=== PATIENT | male | born 1955 | race Caucasian/White ===

== ENCOUNTER → 2019-02-27 08:14 | Outpatient (BNVA) | payer MEDICARE, SELFPAY | PROVIDERS: Family Provider Nurse Practitioner Family; PCP Family Medicine; Visit Provider Specialist | DX: G43.711 Chronic migraine without aura, intractable, with status migrainosus (principal) | CPT/HCPCS: 64615; J0585 ==

== ENCOUNTER → 2019-06-05 07:59 | Outpatient (BNVA) | payer MEDICARE, SELFPAY | PROVIDERS: Family Provider Nurse Practitioner Family; PCP Family Medicine; Visit Provider Specialist | DX: G43.711 Chronic migraine without aura, intractable, with status migrainosus (principal) | CPT/HCPCS: 64615; J0585 ==

== ENCOUNTER → 2020-03-11 08:07 | Outpatient (BNVA) | payer MEDICARE, SELFPAY | PROVIDERS: Family Provider Nurse Practitioner Family; PCP Family Medicine; Visit Provider Specialist | DX: G43.709 Chronic migraine without aura, not intractable, without status migrainosus (principal); G47.00 Insomnia, unspecified | CPT/HCPCS: 99213; 99214 ==

== ENCOUNTER 2020-12-21 06:00 | Outpatient (RCR) | payer MEDICARE, SELFPAY | END 2021-01-11 23:59 | disposition home or self-care (01) | LOC: TPT 06:00 | PROVIDERS: PCP Family Medicine; Referring Provider Orthopaedic Surgery; Visit Provider Orthopaedic Surgery | DX: Z47.1 Aftercare following joint replacement surgery (principal); Z96.652 Presence of left artificial knee joint | CPT/HCPCS: 97110; 97161 ==

== ENCOUNTER 2021-01-12 06:00 | Outpatient (RCR) | payer MEDICARE, SELFPAY | END 2021-02-11 23:59 | disposition home or self-care (01) | LOC: TPT 06:00 | PROVIDERS: PCP Family Medicine; Referring Provider Orthopaedic Surgery; Visit Provider Orthopaedic Surgery | DX: Z47.1 Aftercare following joint replacement surgery (principal); Z96.652 Presence of left artificial knee joint | CPT/HCPCS: 97110 ==

== ENCOUNTER 2021-02-18 08:48 | Outpatient (CLI) | payer MEDICARE, SELFPAY ==
[2021-02-18 09:01] VITALS: BP 119/77; PULSE 95; RESP 18; TEMP 36.3; O2SAT 96
[2021-02-18 09:21] VITALS: BP 115/74; PULSE 89; RESP 18; TEMP 35.7; O2SAT 97
[2021-02-18 10:34] VITALS: BP 112/69; PULSE 71; RESP 16; TEMP 36.1; O2SAT 96
== END 2021-02-18 08:49 | disposition home or self-care (01) ==
PROVIDERS: PCP Family Medicine; Visit Provider Nurse Practitioner
DX: U07.1 COVID-19 (principal)
CPT/HCPCS: 96365

== ENCOUNTER 2021-02-22 09:42 | Emergency (ER) | payer MEDICARE, SELFPAY ==
[2021-02-22 09:50] VITALS: BP 132/82; PULSE 88; RESP 28; O2SAT 97; BMI 32.1
--- NOTE | 2021-02-22 09:59 | W.ED.SOB ---
HPI - SOB/Dyspnea General: Chief Complaint: Shortness of Breath/Dyspnea Stated Complaint: difficulty breathing Time Seen by Provider: 02/22/21 09:46 History of Present Illness: HPI Narrative: 65-year-old male presents to the emergency room with shortness of breath and cough. Patient tested positive for COVID 6 days ago. He had little to no symptoms he only tested because his tested positive. He has previously been vaccinated. He is not having any chest pain he states he just feels short of breath and feels like he cannot catch his breath this morning. He denies any abdominal pain not really had any fever has not had a productive cough. He has had pneumonia in the past he is concerned he may have a pneumonia. MD elicited complaint: shortness of breath and cough Associated symptoms: Deny abdominal pain, chest pain, fever(s), nausea, orthopnea or vomiting Review of Systems Const: Denies: fever(s), chills, body aches, change in appetite, fatigue or malaise ENMT: Denies: throat pain, ear or mastoid pain, nasal discharge or nasal congestion Card: Denies: chest pain, edema, dyspnea on exertion or orthopnea Resp: Denies: dyspnea, productive cough or non-productive cough GI: Denies: abdominal pain, nausea, vomiting, hematemesis, coffee ground emesis, diarrhea, constipation, bloating, hematochezia or melena : Denies: flank pain, dysuria, urinary frequency or urinary urgency Skin/Breast: Denies: rash or pruritus PFSH ED PFSH: Medical History (Updated 02/22/21 @ 11:00 by Jason Ernandez DO) Rodriguez esophagus Ch mgr wo dorothy w ntr w st Chronic depression Fibromyalgia Spasmodic torticollis Surgical History (Updated 02/22/21 @ 10:03 by Jason Ernandez DO) History of cholecystectomy History of eye surgery Family History Father Hypertension Crohn's disease Mother Cancer Social History Smoking and tobacco status: never smoked Physical Exam Const: GENERAL APPEARANCE: cooperative and comfortable ORIENTATION/CONSCIOUSNESS: Yes awake, Yes oriented to person, Yes oriented to place and Yes oriented to time HENMT: COMMON NORMALS: normocephalic, atraumatic and hearing grossly normal bilaterally HEAD & SCALP: normocephalic and atraumatic Neck/C-Spine: COMMON NORMALS: no JVD Resp: COMMON NORMALS: normal respiratory effort, No retractions, No use of accessory muscles and clear to auscultation bilaterally AUSCULTATION: clear to auscultation bilaterally Cardio: COMMON NORMALS: no JVD, regular rate, regular rhythm and No murmurs present (Cardio) RATE: regular rate RHYTHM: regular rhythm GI: COMMON NORMALS: Soft to palpation and No hepatosplenomegaly present AUSCULTATION: Yes normoactive bowel sounds PALPATION: Yes Soft to palpation, No Tenderness to palpation present (GI), No Guarding due to palpation present (GI) and Yes No hepatosplenomegaly present Extremity: COMMON NORMALS: normal to inspection, capillary refill normal, no clubbing, cyanosis or edema, no calf tenderness and no pedal edema Neuro: SENSORIUM/ORIENTATION: Yes oriented to person, Yes oriented to place and Yes oriented to time Skin: COMMON NORMALS: no rashes or lesions noted GENERAL SKIN EXAM: no rashes or lesions noted Course Vital Signs: Vital signs: Vital Signs Pulse Rate 84 02/22/21 11:10 Respiratory Rate 20 H 02/22/21 11:10 Blood Pressure 135/90 02/22/21 11:10 Pulse Oximetry 99 02/22/21 11:10 MDM - SOB/Dyspnea MDM Narrative: Medical decision making narrative: Patient stable lung sounds good vitals good discharge home we will set up for outpatient monoclonal antibody. Discharge Plan Discharge Patient Disposition: Home Clinical Impression: COVID-19 Condition: Stable Prescriptions: No Action trazodone 100 mg tablet 100 mg PO DAILY Qty: 20 RF: 6 Botox 100 unit recon soln 155 unit IM .EVERY 12 WEEKS RF: 0 Hold Instructions: Order Change oxycodone 30 mg tablet 30 mg PO .FIVE TIMES DAILY RF: 0 Ed A-Hist 4-10 mg tablet 1 tab PO .Q6 PRNRF: 0 methylprednisolone [Medrol (Shukri)] 4 mg tablets,dose pack See Rx Instructions PO PER PKG DIR RF: 0 Aimovig Autoinjector 140 mg/mL auto-injector 140 mg SUBCUT .[id number] Qty: 1 RF: 5 Discharge Orders: Discharge ED (Routine); Ordered 02/22/21 Ordered By: Jason Ernandez Other Ambulatory Orders: Request for MCA (Routine) Timeframe: 1 Day Facility: [facility] - Location: Outpatient Surgical Services Ordered By: Jason Ernandez Referrals: Elizabeth Gamez MD [Primary Care Provider] - Discharge Diet: Usual diet Discharge Activity: Limit activity as instructed Patient Instructions: Opioid Safety Coding Level of Care Code ED Solar Project Coordination Specialist for Chg Fwd Exam Comprehensive
--- NOTE | 2021-02-22 10:00 | XR_ITS ---
WS: [id number] XR chest 1V portable [id number] REASON FOR EXAM: dyspnea/cough FINDINGS: Moderate tortuosity and ectasia of the thoracic aorta without aneurysmal dilatation. Heart at the upper limits of normal in size. Patchy and linear lung opacities in the left lower and right lower lungs. Unknown chronicity. Bony thorax intact. XR/XR chest 1V portable [id number] IMPRESSION: Opacities in the lung bases of unknown chronicity. Compatible with subacute pne umonitis.
[2021-02-22 10:38] VITALS: O2SAT 94; O2SAT 97
[2021-02-22 11:10] VITALS: BP 135/90; PULSE 84; RESP 20; O2SAT 99
== END 2021-02-22 11:31 | disposition home or self-care (01) ==
PROVIDERS: Emergency Provider Family Medicine; PCP Family Medicine
DX: U07.1 COVID-19 (principal)
CPT/HCPCS: 71045; 99283

== ENCOUNTER → 2021-07-12 17:19 | Outpatient (BNVA) | payer MEDICARE, MEDICAID, SELFPAY | PROVIDERS: PCP Family Medicine; Visit Provider Nurse Practitioner Family | DX: N39.0 Urinary tract infection, site not specified (principal); R10.9 Unspecified abdominal pain; Z12.5 Encounter for screening for malignant neoplasm of prostate; N40.0 Benign prostatic hyperplasia without lower urinary tract symptoms | CPT/HCPCS: 80053; G0103 ==

== ENCOUNTER 2021-11-26 09:40 | Emergency (ER) | payer MEDICARE, MEDICAID, SELFPAY ==
--- NOTE | 2021-11-26 09:44 | ED_ITS ---
HPI - Neck Pain/Injury General: Chief Complaint: Back Pain/Injury Stated Complaint: Can't turn neck, pain on both sides Time Seen by Provider: 11/26/21 09:44 History of Present Illness: severe neck pain Onset (ago): day(s) (4) Severity scale (1-10): 10 Review of Systems General: Reports: 10 or more systems reviewed and unremarkable except in HPI and below Musc: Reports: neck pain (severe; positive for nuchal rigidity ) and joint swelling (right clavicle and posterior neck ) PFSH ED PFSH: Medical History Rodriguez esophagus Ch mgr wo dorothy w ntr w st Chronic depression Fibromyalgia Spasmodic torticollis Surgical History History of cholecystectomy History of eye surgery Family History Father Hypertension Crohn's disease Mother Cancer Social History Smoking and tobacco status: never smoked Physical Exam Const: COMMON NORMALS: no acute distress, patient oriented x3, no limitations and alert GENERAL APPEARANCE: cooperative and comfortable ORIENTATION/CONSCIOUSNESS: Yes awake, Yes oriented to person, Yes oriented to place and Yes oriented to time HENMT: COMMON NORMALS: normocephalic, atraumatic, external ears normal, EAC's normal, TM's normal bilaterally and Normal external nose present HEAD & SCALP: normal to inspection, normocephalic and atraumatic FACE & SINUS: normal facial exam, sinuses nontender and face symmetric NOSE: Normal external nose present, Normal nares present and No nasal discharge present EXTERNAL EAR: Yes external ears normal EXTERNAL AUDITORY CANAL: EAC's normal TYMPANIC MEMBRANE: TM's normal bilaterally MOUTH: Normal oral and palatal mucosa present, lip normal and tongue normal THROAT: posterior oropharynx normal, tonsils normal and uvula midline Eye: COMMON NORMALS: Equal, round and reactive pupils present, EOMs intact bilaterally and conjunctivae normal GENERAL EYE: appearance normal, both eyes and all related structures and normal light reflex EYELID: eyelids normal CONJUNCTIVA: Yes conjunctivae normal PUPIL: Yes Equal, round and reactive pupils present EOM: Yes EOM abnormal DIRECT OPHTHALMOSCOPY: Yes normal light reflex Neck/C-Spine: COMMON NORMALS: negative for full ROM (only able to nod head slightly from side to side; cannot touch chin to ches) GENERAL: Yes normal visual inspection CERVICAL SPINE: Yes cervical ROM normal and Yes normal cervical lordosis Lymph: LYMPHATIC: no lymphadenopathy noted Chest: COMMONS NORMALS: normal inspection of the chest and normal palpation of entire chest wall Resp: COMMON NORMALS: normal respiratory effort, No retractions and clear to auscultation bilaterally AUSCULTATION: clear to auscultation bilaterally Cardio: COMMON NORMALS: regular rate, regular rhythm, S1 normal heart sound present, S2 normal heart sound present, No gallops present (Cardio), No clicks present (Cardio), No murmurs present (Cardio), No rub (Cardio) and Peripheral pulses 2+ throughout RATE: regular rate RHYTHM: regular rhythm HEART SOUNDS: S1 normal heart sound present and S2 normal heart sound present PERIPHERAL PULSES: Peripheral pulses 2+ throughout GI: COMMON NORMALS: Normal to inspection, nondistended, normoactive bowel sounds present, Soft to palpation, non-tender and no masses PALPATION: Yes Soft to palpation : COMMON NORMALS: Yes no CVA tenderness BLADDER/KIDNEY EXAM: Yes no CVA tenderness Back/Pelvis: COMMON NORMALS: no CVA tenderness, thoracic and lumbar spine normal to inspection, no thoracic nor lumbar tenderness and thoraco-lumbar ROM normal Extremity: COMMON NORMALS: normal to inspection, full ROM, capillary refill normal, no joint enlargement, no clubbing, cyanosis or edema, no calf tenderness and no pedal edema GENERAL: Yes normal exam except as noted Neuro: COMMON NORMALS: patient oriented x3, moves all extremities, no focal motor deficits, no sensory deficits noted and gait normal SENSORIUM/ORIENTATION: Yes alert, Yes oriented to person, Yes oriented to place and Yes oriented to time Psych: COMMON NORMALS: mental status grossly normal, Normal thought process present, cooperative, normal affect, speech normal and activity/motor behavior normal SPEECH: Yes normal speech THOUGHT PROCESS: Normal thought process present Skin: COMMON NORMALS: no rashes or lesions noted, no wounds and turgor normal GENERAL SKIN EXAM: no rashes or lesions noted and turgor normal Course ED course: Slight improvement after pain meds. Pt in CT at this time. Vital Signs: Vital signs: Vital Signs Temperature 97.8 F 11/26/21 09:46 Pulse Rate 120 H 11/26/21 09:46 Respiratory Rate 16 11/26/21 10:27 Blood Pressure 125/81 11/26/21 09:46 Pulse Oximetry 90 11/26/21 10:27 Oxygen Delivery Me thod 11/26/21 09:46 MDM - Neck Pain/Injury Medical Decision Making Pt has increasingly severe neck pain. He did fall 3 weeks ago but did not experience any neck pain at that time. No neuro deficits noted. CT neck ordered and pain meds. IV established. Discharge Plan Discharge Condition: Stable Prescriptions: No Action oxycodone 30 mg tablet 30 mg PO .FIVE TIMES DAILY tamsulosin [Flomax] 0.4 mg capsule 0.4 mg PO DAILY 30 Days Qty: 30 0RF cephalexin 500 mg capsule 500 mg PO TID 10 Days Qty: 30 0RF Referrals: Elizabeth Gamez MD [Primary Care Provider] - Coding Level of Care Code ED Drafter (Cad) Electronic for Chg Fwd Exam Comprehensive
[2021-11-26 09:46] VITALS: BP 125/81; PULSE 120; RESP 18; TEMP 36.6; O2SAT 99; BMI 32.1
[2021-11-26 10:27] VITALS: RESP 16; O2SAT 90
[2021-11-26] MEDS: orphenadrine 30 mg/mL Inj 2 mL 60 MG IVP (10:27)
[2021-11-26] MEDS: HYDROmorphone 1 mg/mL INJ 1 mL IVP ×2 (10:27→12:49)
[2021-11-26] MEDS: ketorolac 30 mg/mL INJ IVP (10:28)
--- NOTE | 2021-11-26 11:16 | CTR_ITS ---
PROCEDURE INFORMATION: Exam: CT Cervical Spine Without Contrast Exam date and time: 11/26/2021 11:50 AM Age: 66 years old Clinical indication: Neck pain TECHNIQUE: Imaging protocol: Computed tomography of the cervical spine without contrast. Axial, coronal and sagittal reformatted images were created and reviewed. Radiation optimization: All CT scans at this facility use at least one of these dose optimization techniques: automated exposure control; mA and/or kV adjustment per patient size (includes targeted exams where dose is matched to clinical indication); or iterative reconstruction. COMPARISON: MR head wo/w con [id number] 09/24/2018 10:50 AM RADIATION DOSE METRICS: Total DLP (mGy-cm): 188.37 FINDINGS: Bones/joints: Normal cervical lordosis. No CT evidence of acute fracture, dislocation or subluxation. Minimal retrolisthesis of C3 on C4 and C4 on C5. Alignment otherwise anatomic. Vertebral body heights maintained. Mild multilevel degenerative changes, characterized by disc space narrowing, osteophytosis and uncovertebral and facet joint hypertrophy. Mild multilevel spinal canal and neural foraminal narrowing, most pronounced at C6-C7. Lungs: Biapical pleural thickening. Soft tissues: Grossly unremarkable. CT/CT cervical spin wo con* [id number] IMPRESSION: 1. No CT evidence of acute cervical spine traumatic injury. 2. Additional findings, as above.
[2021-11-26 12:42] VITALS: BP 123/96; PULSE 113; O2SAT 94
[2021-11-26 12:49] VITALS: RESP 16; O2SAT 97
[2021-11-26 13:02] VITALS: BP 131/91; PULSE 105; RESP 16; O2SAT 97
== END 2021-11-26 13:05 | disposition home or self-care (01) ==
PROVIDERS: Emergency Provider Nurse Practitioner Family; PCP Family Medicine
DX: M54.2 Cervicalgia (principal)
CPT/HCPCS: 72125; 96374; 96375; 96376; 99285; J1170; J1885; J2360

== ENCOUNTER 2021-11-27 11:42 | Emergency (ER) | payer MEDICARE, SELFPAY ==
[2021-11-27 11:45] VITALS: BP 122/82; PULSE 119; RESP 18; TEMP 36.7; O2SAT 98; BMI 32.1
[2021-11-27] MEDS: methocarbamol 750 mg Tablet 1500 MG PO (12:54)
[2021-11-27] MEDS: ketorolac 30 mg/mL INJ 15 MG IM (12:54)
[2021-11-27] MEDS: haloperidol inj 5 mg/mL INJ 1 mL 2 MG IM (12:54)
--- NOTE | 2021-11-27 13:26 | W.ED.NECK ---
HPI - Neck Pain/Injury General: Chief Complaint: Neck Pain/Injury Stated Complaint: Not better, was here yesterday Time Seen by Provider: 11/27/21 12:28 History of Present Illness: 66-year-old male noting right-sided neck pain. Onset yesterday. Notes he has significant pain when he turns his head either left or to the right. Pain is so severe that he has difficulty turning his neck. Has tried his at home oxycodone with minimal relief. Was seen in the ED yesterday. 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 He notes that the pain is severe. He denies numbness tingling or weakness. No prior history of stroke. No chest pain or shortness of breath. Review of Systems General: Reports: 10 or more systems reviewed and unremarkable except in HPI and below PFSH ED PFSH: Medical History Rodriguez esophagus Ch mgr wo dorothy w ntr w st Chronic depression Fibromyalgia Spasmodic torticollis Surgical History History of cholecystectomy History of eye surgery Family History Father Hypertension Crohn's disease Mother Cancer Social History Smoking and tobacco status: never smoked Physical Exam Const: COMMON NORMALS: no acute distress, patient oriented x3 and alert GENERAL APPEARANCE: cooperative ORIENTATION/CONSCIOUSNESS: Yes awake, Yes oriented to person, Yes oriented to place and Yes oriented to time HENMT: COMMON NORMALS: normocephalic, atraumatic, external ears normal, Normal external nose present and moist oral mucous membranes HEAD & SCALP: normal to inspection, normocephalic and atraumatic NOSE: Normal external nose present GENERAL EAR: hearing grossly impaired EXTERNAL EAR: Yes external ears normal Eye: COMMON NORMALS: Equal, round and reactive pupils present, EOMs intact bilaterally, conjunctivae normal and no scleral icterus GENERAL EYE: appearance normal, both eyes and all related structures EYELID: eyelids normal CONJUNCTIVA: Yes conjunctivae normal SCLERA: sclerae normal PUPIL: Yes Equal, round and reactive pupils present Neck/C-Spine: COMMON NORMALS: full ROM, supple and no JVD GENERAL: Yes normal visual inspection Lymph: LYMPHATIC: no lymphadenopathy noted and no lymphedema noted Chest: COMMONS NORMALS: normal inspection of the chest Resp: COMMON NORMALS: normal respiratory effort, No retractions and No use of accessory muscles Cardio: COMMON NORMALS: no JVD, regular rate and regular rhythm RATE: regular rate RHYTHM: regular rhythm GI: COMMON NORMALS: Normal to inspection, nondistended, normoactive bowel sounds present : COMMON NORMALS: Yes no CVA tenderness BLADDER/KIDNEY EXAM: Yes no CVA tenderness Back/Pelvis: COMMON NORMALS: no CVA tenderness and thoracic and lumbar spine normal to inspection Extremity: COMMON NORMALS: normal to inspection, full ROM and capillary refill normal GENERAL: Yes normal exam except as noted Neuro: COMMON NORMALS: patient oriented x3, CN's II-XII intact bilaterally, moves all extremities, no focal motor deficits, no sensory deficits noted and gait normal SENSORIUM/ORIENTATION: Yes alert, Yes oriented to person, Yes oriented to place and Yes oriented to time Psych: COMMON NORMALS: mental status grossly normal, Normal thought process present, cooperative and normal affect THOUGHT PROCESS: Normal thought process present Skin: COMMON NORMALS: no rashes or lesions noted and no wounds GENERAL SKIN EXAM: no rashes or lesions noted Course Vital Signs: Vital signs: Vital Signs Temperature 98.1 F 11/27/21 11:45 Pulse Rate 119 H 11/27/21 11:45 Respiratory Rate 18 11/27/21 11:45 Blood Pressure 122/82 11/27/21 11:45 Pulse Oximetry 98 11/27/21 11:45 Oxygen Delivery Me thod 11/27/21 11:45 MDM - Neck Pain/Injury Medical Decision Making 66-year-old male presenting today with right-sided neck pain. Tenderness along the sternocleidomastoid muscle. Appears to be an acute spasm. This suggestive of torticollis. Patient was given Haldol Paradelo, Toradol, methocarbamol. With resolution. Patient able to range neck. CT reviewed from yesterday without acute abnormality. Low suspicion for carotid or vertebral artery injury. Patient was given strict return precautions and recommended routine outpatient follow-up. Discharge Plan Discharge Patient Disposition: Home Clinical Impression: Acquired torticollis Condition: Stable Prescriptions: New methocarbamol 750 mg tablet 750 mg PO Q8H Qty: 30 0RF diclofenac sodium 75 mg tablet,delayed release (DR/EC) 75 mg PO BID Qty: 30 0RF No Action oxycodone 30 mg tablet 30 mg PO .FIVE TIMES DAILY tamsulosin [Flomax] 0.4 mg capsule 0.4 mg PO DAILY 30 Days Qty: 30 0RF cephalexin 500 mg capsule 500 mg PO TID 10 Days Qty: 30 0RF cyclobenzaprine 10 mg tablet 10 mg PO Q12H Qty: 14 0RF Voltaren Arthritis Pain 1 % gel 2 g topical QID Qty: 100 0RF Rx Instructions: apply to single elbow, wrist or hand; for hand includes palm/fingers/back of hand Discharge Orders: Discharge ED (Routine); Ordered 11/27/21 Ordered By: Hi Walters Referrals: Teri Mensah APN [Primary Care Provider] - Patient Instructions: Opioid Safety, Pain Management, Spasmodic Torticollis (ED) Coding Level of Care Code ED Supervisor Assembly Room for Venkatesh Plascencia
== END 2021-11-27 13:37 | disposition home or self-care (01) ==
PROVIDERS: Emergency Provider Emergency Medicine; PCP Nurse Practitioner Family
DX: M43.6 Torticollis (principal)
CPT/HCPCS: 96372; 99284; J1630; J1885

== ENCOUNTER → 2023-06-22 09:11 | Outpatient (BNVA) | payer MEDICARE, SELFPAY | PROVIDERS: PCP Nurse Practitioner Family; Visit Provider Nurse Practitioner Family | DX: M70.10 Bursitis, unspecified hand (principal) | CPT/HCPCS: 73110 ==

== ENCOUNTER 2023-12-12 11:01 | Emergency (ER) | payer MEDICARE, SELFPAY ==
[2023-12-12 11:25] VITALS: BP 96/66; PULSE 131; RESP 16; TEMP 36.4; O2SAT 95; BMI 261.3
[2023-12-12] MEDS: ketorolac 60 mg/2 mL INJ IM (13:16)
[2023-12-12] MEDS: orphenadrine 30 mg/mL Inj 2 mL 60 MG IM (13:18)
[2023-12-12 13:21] VITALS: BP 98/77; PULSE 109; O2SAT 99
[2023-12-12 13:30] VITALS: BP 99/81; PULSE 85; O2SAT 98
--- NOTE | 2023-12-12 13:30 | W.ED.NECK ---
HPI - Neck Pain/Injury General: Chief Complaint: Neck Pain/Injury Stated Complaint: neck pain/stiffness Time Seen by Provider: 12/12/23 12:50 History of Present Illness: Patient presents to the ER with complaints of neck stiffness and ajay Started approximately 2 days ago. Patient's left neck muscles tight. Patient turned his head quickly to the left and it worsened and has been getting worse ever since then. Patient denies any fever or chills or meningeal type symptoms. He is only tender on the left side and a strap muscle fashion. Related Data Home Medications Medication Instructions Recorded Confirmed bisoprolol fumarate 5 mg tablet 5 mg PO DAILY 12/12/23 12/12/23 lisinopril 2.5 mg tablet 25 mg PO DAILY 12/12/23 12/12/23 oxycodone 30 mg tablet See Rx Instructions .Route .COMPLEX 12/12/23 12/12/23 pantoprazole 40 mg tablet,delayed 40 mg PO BID 12/12/23 12/12/23 release Previous Rx's Medication Instructions Recorded cyclobenzaprine 5 mg tablet 5 mg PO TID PRN muscle spasm #14 12/12/23 tabs meloxicam 7.5 mg tablet 7.5 mg PO .Twice daily #14 tabs 12/12/23 Allergies Allergy/AdvReac Type Severity Reaction Status Date / Time No Known Allergies Allergy Verified 06/22/23 09:02 Review of Systems General: Reports: 10 or more systems reviewed and unremarkable except in HPI and below PFSH ED PFSH: Medical History Fibromyalgia Rodriguez esophagus Ch mgr wo dorothy w ntr w st Spasmodic torticollis Chronic depression Surgical History History of cholecystectomy History of eye surgery Family History Father Hypertension Crohn's disease Mother Cancer Social History Smoking and tobacco/nicotine status: never used tobacco/nicotine Physical Exam Const: COMMON NORMALS: no acute distress, average body habitus, patient oriented x3, no limitations, healthy appearing, alert and well nourished HENMT: COMMON NORMALS: normocephalic, atraumatic, hearing grossly normal bilaterally, external ears normal, Normal external nose present and moist oral mucous membranes HEAD & SCALP: normocephalic and atraumatic NOSE: Normal external nose present EXTERNAL EAR: Yes external ears normal Neck/C-Spine: COMMON NORMALS: no lymphadenopathy, supple, no meningeal signs, no JVD and Thyroid normal THYROID: Thyroid normal OTHER: Tender to palpate left sternocleidomastoid muscle Chest: COMMONS NORMALS: normal inspection of the chest and normal palpation of entire chest wall Resp: COMMON NORMALS: normal respiratory effort, No retractions, No use of accessory muscles and clear to auscultation bilaterally AUSCULTATION: clear to auscultation bilaterally Cardio: COMMON NORMALS: no JVD, regular rate, regular rhythm, S1 normal heart sound present, S2 normal heart sound present, No gallops present (Cardio), No clicks present (Cardio), No murmurs present (Cardio) and No rub (Cardio) RATE: regular rate RHYTHM: regular rhythm HEART SOUNDS: S1 normal heart sound present and S2 normal heart sound present GI: COMMON NORMALS: Normal to inspection, nondistended, normoactive bowel sounds present, Soft to palpation, non-tender, No hepatosplenomegaly present and no masses PALPATION: Yes Soft to palpation and Yes No hepatosplenomegaly present Neuro: COMMON NORMALS: patient oriented x3 SENSORIUM/ORIENTATION: Yes alert MENINGEAL SIGNS: Yes no meningeal signs Course Vital Signs: Vital signs: Vital Signs Temperature 97.5 F L 12/12/23 11:25 Pulse Rate 109 H 12/12/23 13:21 Respiratory Rate 16 12/12/23 11:25 Blood Pressure 98/77 12/12/23 13:21 Pulse Oximetry 99 12/12/23 13:21 Oxygen Delivery Me thod Room Air 12/12/23 13:21 MDM - Neck Pain/Injury Medical Decision Making Patient presents with left-sided musculoskeletal neck pain. Patient was given Toradol and Norflex and upon reexamination was resting soundly. Patient will be discharged on meloxicam and cyclobenzaprine. Medical Records I reviewed the patient's medical records. Lab Data I reviewed the patient's lab results. No radiology studies performed this visit Discharge Plan Discharge Patient Disposition: Home Clinical Impression: Strain of neck muscle Qualifiers: Encounter type: initial encounter Qualified Code(s): S16.1XXA - Strain of muscle, fascia and tendon at neck level, initial encounter Condition: Stable Prescriptions: New meloxicam 7.5 mg tablet 7.5 mg PO .Twice daily Qty: 14 0RF cyclobenzaprine 5 mg tablet 5 mg PO TID PRN (Reason: muscle spasm) Qty: 14 0RF No Action bisoprolol fumarate 5 mg tablet 5 mg PO DAILY pantoprazole 40 mg tablet,delayed release (DR/EC) 40 mg PO BID oxycodone 30 mg tablet See Rx Instructions .ROUTE .COMPLEX Rx Instructions: TAKE ONE TABLET BY MOUTH EVERY 4 TO 6 HOURS NEEDED FOR pain. do not exceed 3 TABLETS in 24 hours. HOLD WITHIN 4 hours of planned SLEEP. 11/23/23 lisinopril 2.5 mg tablet 25 mg PO DAILY Discharge Orders: Discharge ED (Routine); Ordered 12/12/23 Ordered By: Sami Pierre Referrals: Teri Mensah APN [Primary Care Provider] - 1 week Patient Instructions: Neck Pain (ED), Cervical Strain (ED) Activity Restrictions/Additional Instructions: 2 medicines have been called into your pharmacy. Please pick these medicines up and take these as directed. Please follow-up with your family practitioner in the next 7 days for further evaluation and treatment. Coding Level of Care Code ED Parts Sales Advisor for Venkatesh Plascencia
--- NOTE | 2023-12-12 13:31 | PC.PHAR ---
Patient states he had an lisinipril 2.5 mg prescription the doctor told him to stop. He also stated that doctor told him to stop the Bisoprolol fumarate 5 mg . He has has chemo treatments . Sonal's neighbor stated patient has stage 4 stomach cancer and has had chemo treatments .
[2023-12-12 14:00] VITALS: BP 93/73; PULSE 98; O2SAT 98
[2023-12-12 14:59] VITALS: BP 109/75; PULSE 99; O2SAT 96
== END 2023-12-12 14:55 | disposition home or self-care (01) ==
PROVIDERS: Emergency Provider Emergency Medicine; PCP Nurse Practitioner Family
DX: S16.1XXA Strain of muscle, fascia and tendon at neck level, initial encounter (principal); X58.XXXA Exposure to other specified factors, initial encounter
CPT/HCPCS: 96372; 99284; J1885; J2360

== ENCOUNTER 2024-07-18 09:51 | Oncology outpatient (recurring) (ONCR) | payer MEDICARE, SELFPAY ==
--- NOTE | 2024-07-18 09:15 | USCV_ITS ---
Hi Gil Age: 69 Gender: M : 1955 Exam Date: 07/18/2024 09:29 Ordering Phys: Cele Jimenez MD Technologist: JOSE Exam Location: [facility] Indication: Stage 4 Esophogeal Cancer BP: 110 / 71 HR: 74 Rhythm: Sinus Technical Quality: Adequate MEASUREMENTS (Male / Female) Normal Values 2D ECHO LV Diastolic Diameter PLAX 5.3 cm 4.2 - 5.9 / 3.9 - 5.3 cm IVS Diastolic Thickness 0.7 cm 0.6 - 1.0 / 0.6 - 0.9 cm IVS Systolic Thickness 1.1 cm LVPW Diastolic Thickness 1.0 cm 0.6 - 1.0 / 0.6 - 0.9 cm LVPW Systolic Thickness 1.1 cm LV Ejection Fraction 2D Teich 62.4 % LV Ejection Fraction MOD 4C 63.1 % LV Ejection Fraction MOD 2C 57.5 % LV Ejection Fraction 2C AL 58.4 % RA Systolic Volume 4C AL 28.9 ml RA Systolic Volume 4C MOD 28.2 ml LA Sys Volume AL 51.1 cm cubed LA Sys Volume Index AL 24.5 cm cubed/m squared M-MODE LA Ao Ratio MM 1.2 AV Cusp Separation MM 1.9 cm DOPPLER AV Peak Velocity 96.0 cm/s LVOT Peak Velocity 79.0 cm/s MV Peak Velocity 84.0 cm/s MV Area PHT 3.5 cm squared Mitral E to A Ratio 0.9 TR Peak Velocity 114.0 cm/s TR Peak Gradient 5.2 mmHg TV Peak E Velocity 66.0 cm/s PV Peak Velocity 88.0 cm/s FINDINGS Left Ventricle Normal left ventricular size, systolic function and wall thickness, with no regional wall motion abnormalities. Left ventricular ejection fraction is estimated at 60 %. Grade I/IV diastolic dysfunction (abnormal relaxation filling pattern), normal to mildly elevated filling pressures. Right Ventricle The right ventricle is normal in size and function. Right Atrium The right atrium is normal in size. Left Atrium The left atrium is normal in size. Mitral Valve Structurally normal mitral valve. No mitral valve stenosis. Trace mitral valve regurgitation. Aortic Valve Structurally normal trileaflet aortic valve. Trace aortic valve regurgitation. Tricuspid Valve Structurally normal tricuspid valve without significant stenosis or regurgitation. Pulmonary artery systolic pressure is normal. Pulmonic Valve Structurally normal pulmonic valve without significant stenosis. There is no pulmonic regurgitation. Pericardium Normal pericardium without effusion. Aorta Normal ascending aorta dimension. IVC The inferior vena cava appears normal. CONCLUSIONS Normal left ventricular size, systolic function and wall thickness, with no regional wall motion abnormalities. Left ventricular ejection fraction is estimated at 60 %. Grade I/IV diastolic dysfunction (abnormal relaxation filling pattern), normal to mildly elevated filling pressures. No significant valve abnormalities. There is no pericardial effusion. Right atrial pressure is around 5 mm of mercury. Enrique Del Rosario MD (Electronically Signed) Final Date: 21 July 2024 22:10 S
--- NOTE | 2024-07-18 13:00 | PETR_ITS ---
PROCEDURE INFORMATION: Exam: PET/CT Skull Base to Mid-thigh Exam date and time: 07/18/2024 11:22 AM Age: 69 years old Clinical indication: Symptoms: Malignant neoplasm of esophagus (stage iv) post chemo and radiation; Additional info: Esophageal cancer stage iv LABS AND CLINICAL REPORTS: Glucose: 103 mg/dl Treatment strategy for malignancy (PET staging): Restaging (PS) TECHNIQUE: Imaging protocol: Following at least four-hour fasting and following the injection of radiopharmaceutical, low dose CT images were obtained. Then, PET images were obtained. Attenuation corrected images were constructed using the CT scan. Fused images of PET and CT were reviewed. The standardized uptake values (SUV) reported below are maximum values within a region of interest, expressed in gm/ml. Exam includes orbital meatal line to mid-thigh. SUV normalization method: BodyWeight Radiopharmaceutical: 11.86 mCi F-18 FDG (Fluorodeoxyglucose), IV. Time of imaging post radiopharmaceutical administration: 46 minutes Injection site: Right Forearm COMPARISON: 1. CT cervical spin wo con* [id number] 11/26/2021 11:50 AM 2. CR XR chest 1V portable [id number] 02/22/2021 10:04 AM FINDINGS: Tubes, catheters and devices: Left chest port terminates near the superior cavoatrial junction. Brain: Visualized brain has normal physiologic uptake. Pharynx: No abnormal uptake. Larynx: No abnormal uptake. Lungs, pleura and trachea: FDG-avid right lower lobe mass measures 3.2 x 2.6 cm on axial image 109 and shows SUV max 8.6. Few FDG avid right lateral pleural nodular thickenings, index measuring 3.2 x 1.0 cm on axial image 111 showing SUV max 14.5. Non FDG avid irregular curvilinear left apical opacity on axial image 81 is nonspecific, may represent scarring. Mild bilateral lower lung subsegmental atelectasis versus scarring. Minimal right pleural effusion. Heart: Normal physiologic uptake. Coronary arteries: Idtd-wg-[id number] coronary artery calcification. Mediastinal space: No abnormal uptake. Diaphragm: Small hiatal hernia. Esophagus: Distal esophageal FDG avid thickening shows SUV max 10.5 on axial image 117. Liver: No abnormal uptake. Gallbladder and biliary ducts: No abnormal uptake. Prior cholecystectomy. Pancreas: No abnormal uptake. Spleen: No abnormal uptake. Adrenal glands: No abnormal uptake. Kidneys and ureters: Normal physiologic uptake. Bilateral nonobstructive nephrolithiasis. Stomach and bowel: No abnormal uptake. Vasculature: No abnormal uptake. Mild systemic atherosclerotic calcification without aortic aneurysm. Lymph nodes: FDG avid mediastinal and bilateral hilar lymphadenopathy, index right infra bronchial node measures 8 mm in the short axis on axial image 111 with SUV max 4.1, right hilar node measures 1.3 cm in the short axis on axial image 103 and shows SUV max 4.5, and left hilar node measures 0.8 cm in the short axis on axial image 106 and shows SUV max 6.7. Skeleton: No abnormal uptake in the visualized axial and appendicular skeleton. Degenerative change along the spine and sacroiliac joints. Three screw fixation of the right femoral neck. Soft tissues: No abnormal uptake in the visualized head, neck, chest, abdomen, pelvis, and extremities. Right posterior shoulder intramuscular lipoma. METRICS: Mediastinal blood pool: SUV mean 2.3 Liver uptake: SUV mean 2.7 PET/PET skull to thigh SUBS [id number] IMPRESSION: 1. Distal esophageal FDG avid thickening compatible with reported malignancy. 2. Findings of FDG-avid right lung pleural-parenchymal metastatic disease. 3. FDG avid mediastinal and bilateral hilar lymphadenopathy suspicious for metastatic disease. 4. Additional chronic and incidental findings as above, to include bilateral nonobstructive nephrolithiasis.
== END 2024-08-11 23:59 | disposition home or self-care (01) ==
LOC: RAD 09:51 → ONCMED 10:01
PROVIDERS: PCP Nurse Practitioner Family; Visit Provider Internal Medicine Medical Oncology
DX: C15.5 Malignant neoplasm of lower third of esophagus (principal); C15.9 Malignant neoplasm of esophagus, unspecified; R93.1 Abnormal findings on diagnostic imaging of heart and coronary circulation; R93.89 Abnormal findings on diagnostic imaging of other specified body structures; R59.0 Localized enlarged lymph nodes; Z96.89 Presence of other specified functional implants; R91.8 Other nonspecific abnormal finding of lung field; I25.10 Atherosclerotic heart disease of native coronary artery without angina pectoris; K44.9 Diaphragmatic hernia without obstruction or gangrene; Z90.49 Acquired absence of other specified parts of digestive tract; N20.0 Calculus of kidney; I70.0 Atherosclerosis of aorta; M47.9 Spondylosis, unspecified; M46.1 Sacroiliitis, not elsewhere classified; Z98.890 Other specified postprocedural states; D17.9 Benign lipomatous neoplasm, unspecified; Z53.9 Procedure and treatment not carried out, unspecified reason
CPT/HCPCS: 78815; 93306; 99205; A9552

== ENCOUNTER 2024-09-09 09:00 | Oncology outpatient (recurring) (ONCR) | payer MEDICARE, SELFPAY ==
[2024-08-18 13:02] LABS: Hematocrit 35.6 % (37-53); Hemoglobin 12.10 g/dL (11.27-16.99); Mean Corpuscular HGB Conc 34.0 g/dL (30-55); Mean Corpuscular Hemoglobin 30.8 pg (27-33); Mean Corpuscular Volume 90.6 fl (82-101); Nucleated Red Blood Cells % 0 %; Platelet Count 209 10^3/cmm (157-399); Red Blood Count 3.93 10^6/uL (3.85-5.65); White Blood Count 6.23 10^3/uL (3.29-11.43)
[2024-08-18 13:29] LABS: Alanine Aminotransferase 16 U/L (0-41); Albumin Level 3.7 g/dL (3.5-5.2); Alkaline Phosphatase 243 U/L (40-130); Anion Gap 15.6 (5-19); Aspartate Amino Transferase 26 U/L (0-40); Blood Urea Nitrogen 21 mg/dL (8-23); Calcium 8.9 mg/dL (8.5-10.5); Carbon Dioxide 22 mmol/L (22-29); Chloride 105 mmol/L (98-107); Free T4 Free Thyroxine 1.32 ng/dL (0.82-1.77); Globulin 3.4 g/dL (1.3-4.6); Glucose 145 mg/dL (65-115); Osmolality Calculated 294 mOsm/kg (285-295); Potassium 3.6 mmol/L (3.5-5.1); Sodium 139 mmol/L (136-145); Thyroid Stimulating Hormone 0.94 uIU/mL (0.27-4.20); Total Protein 7.1 g/dL (6.6-8.7)
[2024-09-02 08:01] LABS: Hematocrit 35.1 % (37-53); Hemoglobin 11.60 g/dL (11.27-16.99); Mean Corpuscular HGB Conc 33.0 g/dL (30-55); Mean Corpuscular Hemoglobin 29.4 pg (27-33); Mean Corpuscular Volume 89.1 fl (82-101); Nucleated Red Blood Cells % 0 %; Platelet Count 228 10^3/cmm (157-399); Red Blood Count 3.94 10^6/uL (3.85-5.65); White Blood Count 6.24 10^3/uL (3.29-11.43)
[2024-09-02 08:29] LABS: Alanine Aminotransferase 16 U/L (0-41); Albumin Level 3.7 g/dL (3.5-5.2); Alkaline Phosphatase 239 U/L (40-130); Anion Gap 16.7 (5-19); Aspartate Amino Transferase 22 U/L (0-40); Blood Urea Nitrogen 20 mg/dL (8-23); Calcium 9.6 mg/dL (8.5-10.5); Carbon Dioxide 23 mmol/L (22-29); Chloride 103 mmol/L (98-107); Creatinine Clr Calc Pharmacy 97.5826; Globulin 3.5 g/dL (1.3-4.6); Glucose 140 mg/dL (65-115); Osmolality Calculated 293 mOsm/kg (285-295); Potassium 3.7 mmol/L (3.5-5.1); Sodium 139 mmol/L (136-145); Thyroid Stimulating Hormone 1.51 uIU/mL (0.27-4.20); Total Protein 7.2 g/dL (6.6-8.7)
[2024-09-02] MEDS: dexamethasone 4 mg/mL INJ 5 mL 12 MG IVP (09:50)
[2024-09-02] MEDS: TRASTUZUMAB ANNS IV (10:51)
[2024-09-02] MEDS: SODIUM CHLORIDE 0.9% IV (10:51)
[2024-09-02] MEDS: atropine 1 mg/mL SDV 1 mL 0.4 MG IV (12:44)
[2024-09-02] MEDS: IRINOTECAN IV (12:59)
[2024-09-02] MEDS: leucovorin 820 MG in dextrose 5% 250 ML 166.67 MG IV (12:59)
[2024-09-02] MEDS: DEXTROSE 5% IV (12:59)
[2024-09-02] MEDS: fluorouraciL 50 mg/ml MDV 100 mL 820 MG IVP (14:50)
[2024-09-02] MEDS: FLUOROURACIL IV (15:00)
[2024-09-02] MEDS: ELASTOMERIC PUMP PUMP IV (15:00)
[2024-09-02 15:16] VITALS: BP 121/76; PULSE 65; RESP 17; TEMP 36; O2SAT 96
[2024-09-04 13:00] LABS: Hematocrit 37.5 % (37-53); Hemoglobin 12.60 g/dL (11.27-16.99); Mean Corpuscular HGB Conc 33.6 g/dL (30-55); Mean Corpuscular Hemoglobin 29.4 pg (27-33); Mean Corpuscular Volume 87.4 fl (82-101); Nucleated Red Blood Cells % 0 %; Platelet Count 233 10^3/cmm (157-399); Red Blood Count 4.29 10^6/uL (3.85-5.65); White Blood Count 4.18 10^3/uL (3.29-11.43)
[2024-09-04] MEDS: sodium chloride 0.9% 1,000 mL Bolus 999 ML IV (13:12)
[2024-09-04] MEDS: aprepitant 130 mg/18 ml SDV IVP (13:16)
[2024-09-04 13:23] LABS: Alanine Aminotransferase 35 U/L (0-41); Albumin Level 3.9 g/dL (3.5-5.2); Alkaline Phosphatase 233 U/L (40-130); Anion Gap 17.8 (5-19); Aspartate Amino Transferase 45 U/L (0-40); Blood Urea Nitrogen 18 mg/dL (8-23); Calcium 8.9 mg/dL (8.5-10.5); Carbon Dioxide 22 mmol/L (22-29); Chloride 100 mmol/L (98-107); Creatinine Clr Calc Pharmacy 97.5826; Globulin 3.8 g/dL (1.3-4.6); Glucose 101 mg/dL (65-115); Magnesium 1.4 mg/dL (1.7-2.3); Osmolality Calculated 284 mOsm/kg (285-295); Potassium 3.8 mmol/L (3.5-5.1); Sodium 136 mmol/L (136-145); Total Protein 7.7 g/dL (6.6-8.7)
[2024-09-04 13:29] VITALS: BP 103/72; PULSE 122; TEMP 36.1; O2SAT 98
[2024-09-04] MEDS: magnesium sulfate premix 2 GM/50 ML PIGGYBACK IV (13:46)
[2024-09-04 15:28] VITALS: BP 105/71; PULSE 94; TEMP 36.2; O2SAT 96
[2024-09-09 09:03] LABS: Hematocrit 30.5 % (37-53); Hemoglobin 10.10 g/dL (11.27-16.99); Mean Corpuscular HGB Conc 33.1 g/dL (30-55); Mean Corpuscular Hemoglobin 29.3 pg (27-33); Mean Corpuscular Volume 88.4 fl (82-101); Nucleated Red Blood Cells % 0 %; Platelet Count 174 10^3/cmm (157-399); Red Blood Count 3.45 10^6/uL (3.85-5.65); White Blood Count 5.02 10^3/uL (3.29-11.43)
[2024-09-09 09:15] LABS: Alanine Aminotransferase 66 U/L (0-41); Albumin Level 3.4 g/dL (3.5-5.2); Alkaline Phosphatase 257 U/L (40-130); Anion Gap 15.4 (5-19); Aspartate Amino Transferase 58 U/L (0-40); Blood Urea Nitrogen 21 mg/dL (8-23); Calcium 8.6 mg/dL (8.5-10.5); Carbon Dioxide 23 mmol/L (22-29); Chloride 102 mmol/L (98-107); Creatinine Clr Calc Pharmacy 98.1836; Globulin 3.2 g/dL (1.3-4.6); Glucose 139 mg/dL (65-115); Osmolality Calculated 289 mOsm/kg (285-295); Potassium 3.4 mmol/L (3.5-5.1); Sodium 137 mmol/L (136-145); Total Protein 6.6 g/dL (6.6-8.7)
[2024-09-09 10:33] LABS: Magnesium 1.4 mg/dL (1.7-2.3)
[2024-09-09] MEDS: magnesium sulfate premix 2 GM/50 ML PIGGYBACK IV (11:11)
[2024-09-09 12:20] VITALS: BP 112/69; PULSE 81; TEMP 36.2; O2SAT 97
== END 2024-09-11 23:59 | disposition home or self-care (01) ==
PROVIDERS: Nurse Practitioner Family; PCP Nurse Practitioner Family; Visit Provider Internal Medicine Medical Oncology
DX: Z53.9 Procedure and treatment not carried out, unspecified reason; C15.9 Malignant neoplasm of esophagus, unspecified; C78.2 Secondary malignant neoplasm of pleura; E83.42 Hypomagnesemia; R52 Pain, unspecified
CPT/HCPCS: 36415; 36591; 80053; 83735; 84439; 84443; 84481; 85025; 96361; 96365; 96368; 96375; 96411; 96413; 96415; 96416; 96417; 96523; 99214; 99215; J0185; J0461; J0640; J1100; J2469; J3475; J3490; J7030; J7050; J7060; J9190; J9206; J9999; Q5117

== ENCOUNTER 2024-09-26 10:58 | Emergency (ER) | payer MEDICARE, SELFPAY ==
--- OUTSIDE RECORDS SUMMARY | 2024-09-17 10:55 | XMS_ITS ---
Author Organization [facility] Address [address] [place] [address] Care Team Providers Care Parts Sales Advisor Name Role Phone Estellebaljit Teri Primary Care Provider Antoinette Frias [phone] Allergies Allergen (clinical drug ingredient) Drug/Non Drug Allergy documented on EMR Reaction Allergy Type Onset Date Status No Known Drug Allergy Unknown Drug Allergy Active REASON FOR VISIT ccm Medications Medication SIG (Take, Route, Frequency, Duration) Notes Start Date End Date Status oxyCODONE HCl 15 MG Tablet 1 tablet Orally every 6 hrs; Duration: 30 days As needed May fill on 08-27-2024 08/27/2024 09/26/2024 Active Bisoprolol Fumarate 5 MG Tablet 1 tablet Orally once at night; Duration: 30 days 08/21/2024 Active Potassium Chloride Sharmin ER 10 MEQ Tablet Extended Release 1 tablet with food Orally Twice a day; Duration: 30 days 08/21/2024 12/18/2024 Active Lasix 20 MG Tablet 1 tablet Orally Once a day; Duration: 30 days 08/21/2024 12/18/2024 Active Social History Tobacco Use: Social History Observation Description Date Details (start date - stop date) Never Smoker NA - NA Social History Tobacco Use: Social Info Question Answer Notes Tobacco Control (Standard) Tobacco use: Nonsmoker Section Notes: 06/18/24 PHQ9 Encounters Encounter Location Date Provider Diagnosis [facility] 09/17/2024 Teri Mensah GERD (gastroesophageal reflux disease) K21.9 and Acute systolic CHF (congestive heart failure) I50.21 Assessments Encounter Date Diagnosis (ICD Code) Assessment Notes Treatment Notes Treatment Clinical Notes Section Notes 09/17/2024 GERD (gastroesophage al reflux disease) (ICD-10 - K21.9) 09/17/2024 Acute systolic CHF (congestive heart failure) (ICD-10 - I50.21) Plan Of Treatment Next Appt Details Provider Name:Sabine Florence sandra, 11/28/2024 10:15:00 AM, [address] [place] [address], [phone], Progress Notes * MOIRAENOCH STARK EDOB:1955 (69 yo M)Acc No.[id number]:09/17/2024 Patient: ENOCH LYNNE :1955 A ge:69 Y S ex:Male Address:[address] [place] [phone] Subjective: * Chief Complaints: * C cm * Medical History: Hiatal hernia Osteoarthritis Restless leg syndrome Skin Cancer Depression Fibromyalgia GERD Rodriguez's esophagus with high grade dysplasia Esophageal cancer, tumor in stomach Lung cancer Heart failure Mumps Pneumonia Migraine Headaches Blood/Plasma transfusion Back Trouble * Surgical History: Right hip ORIF left knee replacement Eye surgery for both eyes for alignment cholecystectomy EGD with PEG Tube Placement PEG Removal in clinic 10/2022 biopsy of cyst in the lung EGD Chronic ulcerated esophagitis/no bleed/dilation/7cm 10-31-2023 Chemo/radiation EGD-4 cm hiatal hernia, esophageal stenosis-dilated 05-01-2024 colonoscopy 2015 * Hospitalization/Major Diagno stic Procedure: see surgery list Acute on chronic systolic heart failure 8.8.24 Neck pain and spasms 12/12/23 * Family History: F ather: alive 93 yrs, Crohn's disease. M other: 77 yrs, Ovarian cancer. S pouse: alive. No family history of colon polyps or colon cancer. * Social History: T obacco Use: T obacco Control (Standard) T obacco use: N onsmoker PHQ9. * Medications: T akingLasix 20 MG Tablet 1 tablet Orally Once a day , stop date 12/18/2024Potassium Chloride Sharmin ER 10 MEQ Tablet Extended Release 1 tablet with food Orally Twice a day , stop date 12/18/2024isoprolol Fumarate 5 MG Tablet 1 tablet Orally once at night oxyCODONE HCl 15 MG Tablet 1 tablet Orally every 6 hrs As needed, stop date 09/26/2024, Notes to Pharmacist: May fill on [id number] Lasix 20 MG Tablet 1 tablet Orally Once a day , stop date 12/18/2024Taking Potassium Chloride Sharmin ER 10 MEQ Tablet Extended Release 1 tablet with food Orally Twice a day , stop date 12/18/2024Taking Bisoprolol Fumarate 5 MG Tablet 1 tablet Orally once at night Taking oxyCODONE HCl 15 MG Tablet 1 tablet Orally every 6 hrs As needed, stop date 09/26/2024, Notes to Pharmacist: May fill on 08-27-2024 * Allergies: N o Known Drug Allergy Assessment: * Assessment: 1. G ERD (gastroesophageal reflux disease) - K21.9 (Primary) 2 . A cute systolic CHF (congestive heart failure) - I50.21 * * Date:
--- OUTSIDE RECORDS SUMMARY | 2024-09-25 10:00 | XMS_ITS ---
Author Organization [facility] Address [address] [place] [address] Care Team Providers Care Steel Placer Name Role Phone Teri Mensah Primary Care Provider Antoinette Frias [phone] REASON FOR VISIT 1 month f/u [id number] Encounters Encounter Location Date Provider Diagnosis [facility] [address] [place] [address] 09/25/2024 Antoinette Frias Plan Of Treatment Next Appt Details Provider Name:Sabine Brenna flores, 11/28/2024 10:15:00 AM, [address] [place], [phone], Progress Notes * ENOCH GIL EDOB:1955 (69 yo M)Acc No.[id number]:09/25/2024 Progress Notes Patient: ENOCH LYNNE Provider: Acosta Frias MD :1955 A ge:69 Y S ex:Male Date:09/25/2024 Address:[address] [place] [address] [address] [id number] Pcp:Teri Mensah Subjective: * Chief Complaints: * 1 month f/u [id number] Billing Information: * Procedure Codes: Care Plan Details* * Electronic signature of Antoinette Frias MD on 09/26/2024 at 11:11 AM CDT Sign off status: Pending * Provider: Acosta Frias MD Date: 0 09/25/2024 Generated for Stephane resendez/Coy/Eder on: 0 09/26/2024 11:11 AM CDT
[2024-09-26 10:59] VITALS: BP 121/86; PULSE 93; RESP 28; TEMP 36.7; O2SAT 96; BMI 26.4
--- NOTE | 2024-09-26 10:59 | XR_ITS ---
WS: [id number] Portable AP upright chest, 09/26/2024 Clinical Data: cp Comparison: Portable chest, 02/22/2021 Findings: There are pleural densities on the right in the upper middle and lower pleural surfaces which were not previously present. The left lung is clear. No effusions or pneumothorax is seen. There is no pneumonia. The heart is at the upper limits of normal. The pulmonary vascularity is not increased. The aortic arch shows mild tortuosity. There is an infusion catheter entering the left internal jugular vein. Monitor leads are on the chest wall. XR/XR chest 1V portable [id number] Impression: 1. Pleural densities along the right pleural space which probably represent met astatic disease. 2. Cardiomegaly and atherosclerosis.
--- NOTE | 2024-09-26 11:06 | ED_ITS ---
HPI - Chest Pain 2 General: Chief Complaint: Chest Pain Stated Complaint: CP Time Seen by Provider: 09/26/24 10:59 Source: patient Mode of arrival: ambulatory Limitations: no limitations History of Present Illness: 69-year-old male has a history of esopha geal cancer states that he has chronic esophageal pain and reflux states that he has to take Tums for states he ran out of Tums has been having severe pain. Patient was over the oncology clinic get an infusion he is on chemo. They called a rapid response because of this pain he states that the pain is in his chest and up his esophagus and feels like his typical pain. Denies any shortness of breath or fever Associated symptoms: Deny abdominal pain, dyspnea, fever(s), nausea or vomiting Related Data Home Medications ?Medication ?Instructions ?Recorded ?Confirmed bisoprolol fumarate 5 mg tablet 5 mg PO DAILY 12/12/23 09/24/24 lisinopril 2.5 mg tablet 25 mg PO DAILY 12/12/2309/12 pantoprazole 40 mg tablet,delayed 40 mg PO BID 4 09/24/24 release oxycodone 15 mg tablet mg PO 08/18/24 09/24/24 furosemide 20 mg tablet (Lasix) 20 mg PO DAILY 5 09/24/24 potassium 75 mg tablet mg PO DAILY 09/02/24 5 Previous Rx's ?Medication ?Instructions ?Recorded cyclobenzaprine 5 mg tablet 5 mg PO TID PRN muscle spa sm #14 12/12/23 tabs meloxicam 7.5 mg tablet 7.5 mg PO .Twice daily #14 t abs 12/12/23 prochlorperazine maleate 10 mg 10 mg PO Q4H PRN mild n ausea #30 08/19/24 tablet (Compazine) tabs diphenoxylate-atropine 2.5 10 ml PO Q6H PRN diarrhea # 60 mL 09/02/24 mg-0.025 mg/5 mL oral liquid ondansetron 4 mg disintegrating 4 mg translingual Q6H PRN nausea 09/02/24 tablet and vomiting #30 tabs olanzapine 5 mg tablet 5 mg PO DAILY 5 days #5 tabs 09/09/24 gabapentin 100 mg capsule 100 mg PO TID #30 caps 09/24 Allergies Allergy/AdvReac Type Severity Reaction Status Date / Time No Known Allergies Allergy Verified 09/24/24 07:56 Review of Systems 2 Const: Denies: fever(s), chills, body aches or change in appetite ENMT: Reports: throat pain; Denies: dental pain Card: Denies: chest pain Resp: Denies: dyspnea GI: Denies: abdominal pain, nausea, vomiting or diarrhea : Denies: dysuria Musc: Denies: neck pain or back pain Skin/Breast: Denies: rash Neuro: Denies: headache(s) PFSH ED 2 PFSH: Medical History Fibromyalgia Rodriguez esophagus Ch mgr wo dorothy w ntr w st Spasmodic torticollis Chronic depression Surgical History History of cholecystectomy History of eye surgery Family History Father Hypertension Crohn's disease Mother Cancer Social History Smoking and tobacco/nicotine status: never used tobacco/nicotine Physical Exam 2 Const: COMMON NORMALS: no acute distress, patient oriented x3 and healthy appearing HENMT: COMMON NORMALS: normocephalic and atraumatic HEAD & SCALP: n ormocephalic and atraumatic Neck/C-Spine: COMMON NORMALS: full ROM and supple Chest: COMMONS NORMALS: normal inspection of the chest Resp: COMMON NORMALS: normal respiratory effort, No retractions, No use of accessory muscles and clear to auscultation bilaterally AUSCULTATION: clear to auscultation bilaterally Cardio: COMMON NORMALS: regular rate, regular rhythm and No murmurs present (Cardio) RATE: regular rate RHYTHM: regular rhythm GI: COMMON NORMALS: Normal to inspection, nondistended, normoactive bowel sounds present, Soft to palpation, non-tender and no masses PALPATION: Yes Soft to palpation Extremity: COMMON NORMALS: normal to inspection and full ROM Neuro: COMMON NORMALS: patient oriented x3, moves all extremities and no focal motor deficits Psych: COMMON NORMALS: mental status grossly normal, Normal thought process present and cooperative THOUGHT PROCESS: Normal thought process present Skin: COMMON NORMALS: no rashes or lesions noted and no wounds GENERAL SKIN EXAM: no rashes or lesions noted Course 2 Reevaluation(s): Reevaluation #1: Patient's pain is completely resolved after GI cocktail Time: 11:28 Vital Signs: Vital signs: Vital Signs Temperature 98.0 F 09/26/24 10:59 Pulse Rate 93 09/26/24 10:59 Respiratory Rate 28 H 09/26/24 10:59 Blood Pressure 121/86 09/26/24 10:59 Pulse Oximetry 96 09/26/24 10:59 Oxygen Delivery Me thod Room Air 09/26/24 10:59 MDM - Chest Pain Medical Decision Making Patient presents here with esophageal pain he has chronic pain from his cancer wrap was called before chest pain but he is actually having esophageal pain his pain was completely resolved with GI cocktail troponins are normal no signs of acute coronary syndrome he stable for discharge. Medical Records I reviewed the patient's medical records. Lab Data I reviewed the patient's lab results. 09/26/24 11:14 09/26/24 11:14 Radiology Impressions Chest X-Ray 09/26/24 10:59 Impression: 1. Pleural densities along the right pleural space which probably represent metastatic disease. 2. Cardiomegaly and atherosclerosis. Laboratory Results WBC 4.30 10^3/uL (3.29-11.43) 09/26/24 11:14 RBC 4.18 10^6/uL (3.85-5.65) 09/26/24 11:14 Hgb 12.30 g/dL (11.27-16.99) 09/26/24 11:14 Hct 37.0 % (37-53) 09/26/24 11:14 MCV 88.5 fl (82-101) 09/26/24 11:14 MCH 29.4 pg (27-33) 09/26/24 11:14 MCHC 33.2 g/dL (30-55) 09/26/24 11:14 RDW 14.4 % (12.1-15.1) 09/26/24 11:14 Plt Count 246 10^3/cmm (157-399) 09/26/24 11:14 MPV 9.1 fL (7.4-10.4) 09/26/24 11:14 Neut % (Auto) 61.6 % 09/26/24 11:14 Lymph % (Auto) 26.5 % 09/26/24 11:14 [place] % (Auto) 11.2 % 09/26/24 11:14 Eos % (Auto) 0.0 % 09/26/24 11:14 Baso % (Auto) 0.5 % 09/26/24 11:14 Neut # (Auto) 2.65 10^3/uL (1.8-7.7) 09/26/24 11:14 Lymph # (Auto) 1.1 10^3/uL (0.8-4.8) 09/26/24 11:14 [place] # (Auto) 0.5 10^3/uL (0.2-0.9) 09/26/24 11:14 Eos # (Auto) 0.0 10^3/uL (0.0-0.8) 09/26/24 11:14 Baso # (Auto) 0.0 10^3/uL (0.0-0.1) 09/26/24 11:14 Nucleated RBC % (auto) 0 % 09/26/24 11:14 Nucleated RBCs # 0.0 /100WBC 09/26/24 11:14 Sodium 138 mmol/L (136-145) 09/26/24 11:14 Potassium 3.9 mmol/L (3.5-5.1) 09/26/24 11:14 Chloride 102 mmol/L (98-107) 09/26/24 11:14 Carbon Dioxide 22 mmol/L (22-29) 09/26/24 11:14 Anion Gap 17.9 (5-19) 09/26/24 11:14 BUN 23 mg/dL (8-23) 09/26/24 11:14 Creatinine 0.7 mg/dL (0.7-1.2) 09/26/24 11:14 GFR Calculation 111.8 mL/min (90-130) 09/26/24 11:14 Glucose 99 mg/dL (65-115) 09/26/24 11:14 Calculated Osmolality 290 mOsm/kg (285-295) 09/26/24 11:14 Calcium 9.8 mg/dL (8.5-10.5) 09/26/24 11:14 Total Bilirubin 0.4 mg/dL (0.15-1.2) 09/26/24 11:14 AST 22 U/L (0-40) 09/26/24 11:14 ALT 16 U/L (0-41) 09/26/24 11:14 Alkaline Phosphatase 193 U/L (40-130) H 09/26/24 11:14 Troponin T Baseline 9 ng/L (0-15) 09/26/24 11:14 Total Protein 6.8 g/dL (6.6-8.7) 09/26/24 11:14 Albumin 3.9 g/dL (3.5-5.2) 09/26/24 11:14 Globulin 2.9 g/dL (1.3-4.6) 09/26/24 11:14 Lipase 21 U/L (13-60) 09/26/24 11:14 All radiology interpretation(s) finalized by discharge Discharge Plan Discharge Patient Disposition: Home Clinical Impression: Esophageal cancer, stage IV, Chest pain Condition: Stable Prescriptions: No Action oxycodone 15 mg tablet PO olanzapine 5 mg tablet 5 mg PO DAILY 5 Days Qty: 5 2RF Rx Instructions: Start taking on day 2 of chemotherapy treatment gabapentin 100 mg capsule 100 mg PO TID Qty: 30 0RF Rx Instructions: Take one capsul at bedtime for 4-5 days; may then add additional cap in AM for 4-5 days. If needed, may add another cap at noon potassium 75 mg tablet PO DAILY furosemide [Lasix] 20 mg tablet 20 mg PO DAILY ondansetron 4 mg tablet,disintegrating 4 mg translingual Q6H PRN (Reason: nausea and vomiting) Qty: 30 3RF Rx Instructions: place under tongue and dissolve diphenoxylate-atropine 2.5-0.025 mg/5 mL liquid 10 ml PO Q6H PRN (Reason: diarrhea) Qty: 60 3RF prochlorperazine maleate [Compazine] 10 mg tablet 10 mg PO Q4H PRN (Reason: mild nausea) Qty: 30 3RF bisoprolol fumarate 5 mg tablet 5 mg PO DAILY pantoprazole 40 mg tablet,delayed release (DR/EC) 40 mg PO BID lisinopril 2.5 mg tablet 25 mg PO DAILY meloxicam 7.5 mg tablet 7.5 mg PO .Twice daily Qty: 14 0RF cyclobenzaprine 5 mg tablet 5 mg PO TID PRN (Reason: muscle spasm) Qty: 14 0RF Discharge Orders: Discharge ED (Routine); Ordered 09/26/24 Ordered By: Julian Toscano Referrals: Teri Mensah APN [Primary Care Provider, [facility]] - 4-7 days Discharge Diet: Advance as tolerated Discharge Activity: Resume usual activity Patient Instructions: Esophageal Cancer (DC) Print Language: Citizen Of [place] Coding Level of Care Code ED 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
--- OUTSIDE RECORDS SUMMARY | 2024-09-26 11:11 | XMS_ITS | Encounter Summary ---
Author Organization [facility] Address [address] [place] [address] Care Team Providers Care Sports Instructor Name Role Phone Unavailable Primary Care Provider Unavailabl e Encounter Details Date Type Department Care Team (Latest Contact Info) Description 06/25/2001 Outpatient Historical HIS [facility] Darrick Rick MD [address] [place] [address] LUMBAGO (Primary Dx); NEURALGIA/NEURITIS NOS; General symptoms NEC; Hip joint replacement Social History Tobacco Use Types Packs/Day Years Used Date Smoking Tobacco: Never Assessed Sex and Gender Information Value Date Recorded Sex Assigned at Not on file Legal Sex Male 4:08 AM [employer] Gender Identity Not on file Sexual Orientation Not on file documented as of this encounter Plan of Treatment Not on file documented as of this encounter Visit Diagnoses Diagnosis Lumbago- Primary Neuralgia, neuritis, and radiculitis, unspecified General symptoms NEC Other general symptoms 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
--- OUTSIDE RECORDS SUMMARY | 2024-09-26 11:11 | XMS_ITS | Patient Health Record ---
Author Organization [facility] Address [address] [place] [address] Care Team Providers Care Berry Grower Name Role Phone Teri Mensah Primary Care Provider Antoinette Frias Unavailable [phone] Senthil Camacho Unavailable [phone] Paramjit Jefferson Unavailable [phone] Placido Adams Unavailable [phone] TobAshutosh hanley Unavailable [phone] Red RiverVivian molina Unavailable [phone] Pérez, Paige Unavailable [phone] Acmame, Ronit Unavailable [phone] Sabine Hall Unavailable [phone] Palak Schuster Unavailable [phone] Allergies Allergen (clinical drug ingredient) Drug/Non Drug Allergy documented on EMR Reaction Allergy Type Onset Date Status No Known Drug Allergy Unknown Drug Allergy Active Results Component Value Reference Range Flag Notes Prothrombin Time 87420 Reviewed date:04/16/2024 03:44:13 PM Interpretation: Performing Lab: Notes/Report: ProTime 13.5 9.1-11.9 SEC HI Normal Range : 9.1-11.9 INR 1.30 .90-1.20 HI Therapaeutic Range for heart valve replacement: 2.5-3.50 Therapeutic Range: 2.0-3.0 Partial Thromboplastin Time [id number] Reviewed date:04/16/2024 03:44:13 PM Interpretation: Performing Lab: Notes/Report: PTT 26.6 22.6-31.8 SEC Therapeutic Range: 60-100. Critical Value Starting at > 100. Echo Complete [id number] Reviewed date:05/13/2024 10:35:07 AM Interpretation: Performing Lab: Notes/Report: Cardiopulmonary Services Name: ENOCH GIL Study Date: 03/27/2024 : 1955 [facility] Age: 69 yrs Gender: Male HR: 76 Reason For Study: dizziness, gerd, acute systolic chf, cm, sob Interpretation Summary The left ventricle is normal in size. There is mild concentric left ventricular hypertrophy. Left ventricular systolic function is normal. Left Ventricular Function is estimated to be 45-50%. Borderline dilated ascending aorta. Recommendations Continue present medication. Will continue to follow regularly. Left Ventricle The left ventricle is normal in size. There is mild concentric left ventricular hypertrophy. Left ventricular systolic function is normal. Left Ventricular Function is estimated to be 45-50%. Right Ventricle The right ventricle is normal size. Atria The left atrial size is normal. Right atrial size is normal. Great Vessels Borderline dilated ascending aorta. Pericardium/Pleural There is no pericardial effusion. There is no pleural effusion. Mitral Valve There is trace mitral regurgitation. Aortic Valve The aortic valve is normal in structure and function. Tricuspid Valve There is trace tricuspid regurgitation. Pulmonic Valve The pulmonic valve leaflets are thin and pliable; valve motion is normal. MMode/2D Measurements & Calculations RVDd: 2.7 cm LVIDd: 4.2 cm FS: 25.4 % IVSd: 1.2 cm LVIDs: 3.1 cm EDV(Teich): 78.6 ml ESV(Teich): 38.9 ml EF(Teich): 50.4 % Ao root diam: 3.5 cm asc Aorta Diam: 3.9 cm LVOT diam: 2.0 cm Ao root area: 9.4 cm2 LVOT area: 3.0 cm2 ACS: 1.8 cm LA dimension: 3.6 cm Time Measurements Aortic HR: 76.1 BPM MM HR: 75.4 BPM Doppler Measurements & Calculations MV E max geo: 43.4 cm/sec Ao V2 max: 102.5 cm/sec MV A max geo: 72.8 cm/sec MV dec slope: 199.2 cm/sec2 Ao max P.2 mmHg MV E/A: 0.60 MV dec time: 0.22 sec Ao V2 mean: 69.6 cm/sec Ao mean P.2 mmHg Ao V2 VTI: 16.6 cm MIKEL(I,D): 2.6 cm2 MIKEL(V,D): 2.4 cm2 LV V1 max P.6 mmHg CO(LVOT): 3.3 l/min PA V2 max: 68.0 cm/sec LV V1 mean P.4 mmHg SV(LVOT): 43.5 ml PA max P.8 mmHg LV V1 max: 80.9 cm/sec LV V1 mean: 54.8 cm/sec LV V1 VTI: 14.4 cm Ordering Physician: Ashutosh Diane Referring Physician: Ashutosh Diane Performed By: Gladys Ragland Echo Echo Complete [id number] Reviewed date:05/13/2024 10:35:07 AM Interpretation: Performing Lab: Notes/Report: [id number]=iSite Echo Limited [id number] Reviewed date:12/10/2023 12:36:40 PM Interpretation: Performing Lab: Notes/Report: [id number]=iSite Echo Limited [id number] Reviewed date:11/06/2023 08:44:59 AM Interpretation: Performing Lab: Notes/Report: Echo Limited [id number] Reviewed date:03/10/2024 10:35:19 AM Interpretation: Performing Lab: Notes/Report: Echo Limited [id number] Reviewed date:12/10/2023 12:36:40 PM Interpretation: Performing Lab: Notes/Report: Cardiopulmonary Services Name: ENOCH GIL Study Date: 11/08/2023 : 1955 Patient [facility] Age: 68 yrs Gender: Male Height: 71 in Weight: 178 lb BSA: 2.0 m2 Reason For Study: chf Interpretation Summary Left ventricular systolic function is mildly reduced. Left Ventricular Function is estimated to be 40-45%. There is mild concentric left ventricular hypertrophy. There is mild mitral regurgitation. There is trace tricuspid regurgitation. Abnormal Global Longitudinal Strain -13.3% Recommendations Continue present medication. Will continue to follow regularly. Left Ventricle The left ventricle is normal in size. There is mild concentric left ventricular hypertrophy. Left ventricular systolic function is mildly reduced. Left Ventricular Function is estimated to be 40-45%. Abnormal Global Longitudinal Strain -13.3%. There is mild global hypokinesis of the left ventricle. Right Ventricle The right ventricle is normal in size and function. Atria The left atrial size is normal. Right atrial size is normal. The interatrial septum is intact with no evidence for an atrial septal defect. Great Vessels The aortic root is normal size. The pulmonary is not well visualized. Pericardium/Pleural There is no pericardial effusion. There is no pleural effusion. Mitral Valve The mitral valve is normal. There is mild mitral regurgitation. Aortic Valve The aortic valve is normal in structure and function. Tricuspid Valve The tricuspid valve is normal in structure and function. There is trace tricuspid regurgitation. Pulmonic Valve The pulmonic valve is normal in structure and function. MMode/2D Measurements & Calculations RVDd: 3.5 cm LVIDd: 4.3 cm FS: 22.0 % IVSd: 1.2 cm LVIDs: 3.3 cm EDV(Teich): 81.9 ml LVPWd: 1.3 cm ESV(Teich): 45.3 ml EF(Teich): 44.7 % Ao root diam: 3.4 cm asc Aorta Diam: 3.6 cm LVOT diam: 2.1 cm Ao root area: 9.1 cm2 LVOT area: 3.5 cm2 ACS: 2.1 cm Time Measurements MM HR: 286.6 BPM Doppler Measurements & Calculations MV E max geo: 46.8 cm/sec Ao V2 max: 106.4 cm/sec MV A max geo: 87.9 cm/sec MV dec slope: 429.9 cm/sec2 Ao max P.5 mmHg MV E/A: 0.53 MV dec time: 0.11 sec Ao V2 mean: 82.4 cm/sec Ao mean P.9 mmHg Ao V2 VTI: 15.4 cm MIKEL(I,D): 3.1 cm2 MIKEL(V,D): 2.8 cm2 LV V1 max P.9 mmHg SV(LVOT): 48.1 ml PA V2 max: 75.0 cm/sec LV V1 mean P.8 mmHg PA max P.3 mmHg LV V1 max: 85.2 cm/sec PA V2 mean: 63.1 cm/sec LV V1 mean: 65.5 cm/sec PA mean P.7 mmHg LV V1 VTI: 13.7 cm TR max geo: 230.4 cm/sec RAP systole: 5.0 mmHg TR max P.2 mmHg RVSP(TR): 26.2 mmHg Ordering Physician: Ashutosh Diane Referring Physician: Ashutosh Diane Performed By: Leonard Voss NM Lexiscan Cardiolite-[id number] Reviewed date:12/10/2023 12:32:17 PM Interpretation: Performing Lab: Notes/Report: See Below For Report NM Lexiscan Cardiolite Read See Below For Report NM Lexiscan Cardiolite-[id number] Reviewed date:12/10/2023 12:32:17 PM Interpretation: Performing Lab: Notes/Report: [id number]=iSite NM Lexiscan Cardiolite-[id number] Reviewed date:11/28/2023 09:59:04 AM Interpretation: Performing Lab: Notes/Report: Electrocardiogram (EKG) - 93 000 Reviewed date:12/14/2023 11:23:35 AM Interpretation: Performing Lab: Notes/Report: Holter 7 day-[id number] Reviewed date:03/27/2024 02:41:17 PM Interpretation: Performing Lab: Notes/Report: Holter 7 day-[id number] Reviewed date:03/27/2024 02:41:17 PM Interpretation: Performing Lab: Notes/Report: Holter 7 day-[id number] Reviewed date:03/27/2024 02:41:17 PM Interpretation: Performing Lab: Notes/Report: Schedule Confirmation Reviewed date:04/16/2024 03:44:13 PM Interpretation: Performing Lab: Notes/Report: CT Chest ION Endoluminal Schedule Confirmation Reviewed date:12/14/2023 12:50:32 PM Interpretation: Performing Lab: Notes/Report: Heart Cath Lt poss PTCA Schedule Confirmation Reviewed date:12/14/2023 12:50:32 PM Interpretation: Performing Lab: Notes/Report: Heart Cath Lt poss PTCA Schedule Confirmation Reviewed date:04/16/2024 03:44:13 PM Interpretation: Performing Lab: Notes/Report: CT Chest ION Endoluminal CT Chest ION Endoluminal-712 [id number] Reviewed date:04/16/2024 03:44:13 PM Interpretation: Performing Lab: Notes/Report: See Below For Report CT Chest ION Endoluminal PLEASE SCHEDULE 04/15/24 @ 3:40PM. PST SAME DAY @ 2:40PM. 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) Referring Provider First Name DANNIELLE Referring Provider Last Name ELROY Referring Provider Speciality Hematology /Oncology Referred Organization [facility] Referred Provider Senthil Camacho Referred Address [address] [place] [address] [address],[place], [place],[address], Referred Provider Specialty Pulmonary Di seases General Notes Tiffany Ann 04/01 11:57:37 AM >Scheduled 04/08/2024 @ 10:30 AM Referral Priority Stat Reason Esophageal and lung cancer Former patient at [facility] in [facility] Home Diagnosis 1 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 Referring Provider First Name Teri Referring Provider Last Name Makenna Referring Provider Speciality Nurse Betina lam Referred Provider Specialty Oncology Referral Priority Routine Medications Medication SIG (Take, Route, Frequency, Duration) Notes Start Date End Date Status oxyCODONE HCl 15 MG Tablet 1 tablet Orally every 6 hrs; Duration: 30 days As needed May fill on 7-1608/27/2024 09/26/2024 Active Bisoprolol Fumarate 5 MG Tablet 1 tablet Orally once at night; Duration: 30 days 08/21/2024 Active Potassium Chloride Sharmin ER 10 MEQ Tablet Extended Release 1 tablet with food Orally Twice a day; Duration: 30 days 08/21/2024 12/18/2024 Active Lasix 20 MG Tablet 1 tablet Orally Once a day; Duration: 30 days 08/21/2024 12/18/2024 Active Immunizations Vaccine Route Administration Date Status Comme nts COVID-19 Vaccine (Moderna) Dose #2 Unknown 07/16/2020 Administered Fluarix Quadrivalent Unknown 11/03/2019 Administered Flucelvax Quadrivalent Pres Free IM Intramuscular 12/28/2021 Administered [id number] Flucelvax Trivalent, Syringe 0.5 mL, PF Unknown 12/19/2023 Refused Prevnar 20 IM Intramuscular 12/28/2021 Administered [facility]-00 [id number] COVID-19 Vaccine (Moderna) Dose #2 Unknown 06/18/2020 Administered COVID-19 Vaccine (Moderna) Dose #2 Unknown 05/27/2021 Administered Social History Tobacco Use: Social History Observation Description Date Details (start date - stop date) Never Smoker NA - NA Social History Depression Screening Social Info Question Answer Notes PHQ-9 Little interest or pleasure in doing thin gs Several days Feeling down, depressed, or hopeless Several day s Trouble falling or staying asleep, or sleeping t oo much Not at all Feeling tired or having little energy Nearly remigio ry day Poor appetite or overeating Several days Feeling bad about yourself, or that you are a failure, or have let yourself or your family down Not at all Trouble concentrating on thi ngs, such as reading the newspaper or watching television Not at all Moving or speaking so slowly that other people could have noticed. Or the opposite ? being so fidgety or restless that you have been moving around a lot more than usual Not at all Thoughts that you would be b beatrice off , or of hurting yourself in some way Not at all Total Score 6 Interpretation Mild Depression Drugs/Alcohol: Social Info Question Answer Notes Caffeine Intake: 1-2 cups per day Comprehensive Health Assessm ent Social Info Question Answer Notes *Social Determinants of Health Has lack of transportation kept you from medical appointments, meetings, work or from getting things needed for daily living? No Recently, have you worried t hat your food would run out before you got money to buy more? No Do you feel physically and e motionally safe where you currently live? Yes Are you worried about losing your housing? No Have you recently been cesar rned that your utilities would be turned off (electricity, gas, or water)? No Availability of resources to meet daily needs? Y es What is your current housing situation? I have h ousing What is the highest level of school that you have completed? High school diploma How many hours do you work on weekly basis? Othe r In the past year, have you o r any family members you live with been unable to get any of the following when it was really needed? None How often do you see or talk to people that you care about and feel close to? 3-4 times in the week How stressed are you? Low Do you have medical insurance through your emplo dariel? Other Have you served in the [employer]? ([employer]) No Drug/Alcohol: Social Info Question Answer Notes AUDIT-C (Standard) Did you have a drink containing alcohol in the past year? No Points 0 Interpretation Negative Tobacco Use: Social Info Question Answer Notes Tobacco Control (Standard) Tobacco use: Nonsmoker Additional Details Category Social Info Options Details Drugs/Alcohol: Do you smoke marijuana? De nies Section Notes: 06/18/24 PHQ9 10/06/20 10/06/20 10/06/20 02-20-22 PHQ9 10/06/20 02-20-22 PHQ9 01/01/23 PHQ9 06/18/24 PHQ9 06/18/24 PHQ9 06/18/24 PHQ9 06/18/24 PHQ9 10/06/20 02-20-22 PHQ9 10/06/20 02-20-22 PHQ9 06/18/24 PHQ9 06/18/24 PHQ9 06/18/24 PHQ9 09/13/22 PHQ9 10/06/20 02-20-22 PHQ9 Problems Problem Type SNOMED Code ICD Code Onset Dates Problem Status W/U Status Risk Notes Problem Malignant neoplasm of lower third of esophagus (446107208) Malignant neoplasm of lower third of esophagus (C15.5) Active confirmed Problem Chronic pain (77152652) Other chronic pain (G89.29) Active confirmed Problem Chronic pain syndrome (122529021) Chronic pain syndrome (G89.4) Active confirmed Problem Hypertensive heart failure (31605260) Hypertensive heart disease with heart failure (I11.0) Active confirmed Problem Chronic systolic heart failure (756197488) Chronic systolic (congestive) heart failure (I50.22) Active confirmed Problem Stricture of esophagus (63507330) Esophageal obstruction (K22.2) Active confirmed Problem Rodriguez's esophagus (119729665) 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 Problem Solitary pulmonary nodule (004526870) Solitary pulmonary nodule (R91.1) Active confirmed Problem History of malignant neoplasm of esophagus (639766534) Personal history of malignant neoplasm of esophagus (Z85.01) Active confirmed Problem Imaging result abnormal (718325971) Abnormal findings on diagnostic imaging of other specified body structures (R93.89) Active confirmed Problem Chronic pain syndrome (390581502) Chronic pain disorder (G89.4) Active confirmed Problem Microcytic hypochromic anemia (16191079) Microcytic hypochromic anemia (D50.9) Active confirmed Problem Obesity (742955313) Obesity (BMI 30-39.9) (E66.9) Active confirmed Problem Dysphagia (77591435) Dysphagia, unspecified type (R13.10) Active confirmed Problem Cardiomyopathy (04033226) Cardiomyopathy, unspecified type (I42.9) Active confirmed Problem Weight loss (170315940) Weight loss (R63.4) Active confirmed Problem Dyspnea (647055851) SOB (shortne ss of breath) on exertion (R06.02) Active confirmed Problem Cancer (357106648) Cancer (C80.1) Active confir med Problem Congestive heart failure (63235455) CHF (congestive heart failure) (I50.9) Active confirmed Problem Depression (173614107) Depression (F32.9) Active confirmed Problem Dysphagia (29937227) Dysphagia (R13.10) Active confirmed Problem Esophageal stricture (69800635) Esophageal stricture (K22.2) Active confirmed Problem Rodriguez's esophagus (716960617) Rodriguez''s esophagus without dysplasia (K22.70) Active confirmed Problem Gastroesophageal reflux disease (945165368) GERD (gastroesophageal reflux disease) (K21.9) Active confirmed Problem Esophageal dysphagia (69791208) Esophageal dysphagia (R13.10) Active confirmed Problem PEG (percutaneou s endoscopic gastrostomy) adjustment/replace ment/removal (Z43.1) Active confirmed Problem Malignant tumor of esophagus (640969489) Malignant neoplasm of esophagus, unspecified location (C15.9) Active confirmed Problem Stricture of esophagus (93048684) Esophageal stenosis (K22.2) Active confirmed Problem History of malignant neoplasm of esophagus (710648529) History of esophageal cancer (Z85.01) Active confirmed Problem Malignant tumor of esophagus (603026744) Esophageal carcinoma (C15.9) Active confirmed Problem Abnormal gastrointestinal PET scan (R94.8) Active confirmed Problem Ulcerative esophagitis (251151231) Ulcerative esophagitis (K22.10) Active confirmed Problem Gastric ulcer without hemorrhage, without perforation AND without obstruction (89068988) Gastric ulcer, unspecified chronicity, unspecified whether gastric ulcer hemorrhage or perforation present (K25.9) Active confirmed Problem Gastrostomy present (709154263) Feeding by G-tube (Z93.1) Active confirmed Problem Acute systolic heart failure (639648135) Acute systolic CHF (congestive heart failure) (I50.21) Active confirmed Problem Gastroesophageal reflux disease with esophagitis (disorder) (148074738) Gastro-esophageal reflux disease with esophagitis, without bleeding (K21.00) Active confirmed Problem History of radiation exposure (111168350) H/O therapeutic radiation (Z92.3) Active confirmed Problem Malignant neoplasm of lower third of esophagus (938392436) Malignant neoplasm of distal third of esophagus (C15.5) Active confirmed Problem Secondary malignant neoplasm of lung (98566759) 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) Active confirmed Problem Lung cancer (672120865) Lung cancer (C34.90) Active confirmed Problem Esophageal mass (206585092) Esophageal mass (K22.89) Active confirmed Problem Mitral valve disorder (01668373) Acute mitral insufficiency (I34.0) Active confirmed Vital Signs Heart Rate 97 /min 08/21/2024 Temperature 97.6 degrees Fahrenheit 06/18/2024 Respiratory Rate 20 /min 06/18/2024 Height-cm 180.34 cm 08/27/2024 Oximetry 98 % 08/21/2024 Blood pressure diastolic 68 mm Hg 08/21/2024 Weight-kg 84.82 kg 08/27/2024 Height 71 in 08/27/2024 Blood pressure systolic 124 mm Hg 08/21/2024 Weight 187 lbs 08/27/2024 BMI 26.08 kg/m2 08/27/2024 Encounters Encounter Location Date Provider Diagnosis [facility] [address] [place] [address] 10/31/2023 Abodunrrosa Badejo Dysphagia, unspecified type R13.10 ; GERD (gastroesophageal reflux disease) K21.9 ; 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 and History of esophageal cancer Z85.[address] [place] [address] 11/08/2023 [facility] [address] [place] [address] 12/06/2023 [facility] [address] [place] [address], [place] [address] 03/27/2024 [facility] [address] [place] [address] 06/12/[address] [facility] [address] [place] [address] 09/27/2023 Teri Mensah Acute systolic CHF (congestive heart failure) I50.21 ; Hospital discharge follow-up Z09 ; Lung cancer C34.90 and 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 [facility] [address] [address] 10/03/2023 Teri Mensah Advanced care planning/counseling discussion Z71.89 ; Encounter for Medicare annual wellness exam Z00.00 ; Acute systolic CHF (congestive heart failure) I50.21 and Lung cancer C34.[address] [place] [address] 10/19/2023 Sabine Hall Acute systolic CHF (congestive heart failure) I50.21 ; Tachycardia R00.0 ; Elevated troponin R74.8 ; Dyspnea R06.00 and Lung cancer C34.[address] [place] [address] 11/08/2023 Vivian Leon Shortness of breath R06.02 ; Cardiomyopathy, unspecified type I42.9 ; Tachycardia R00.0 ; GERD (gastroesophageal reflux disease) K21.9 ; 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 ; History of esophageal cancer Z85.01 ; Dyspnea R06.00 and Lung cancer C34.90 [facility] [address] [place] [address] 12/14/2023 Ashutosh Dodgedayan GERD (gastroesophage al reflux disease) K21.9 ; Lightheaded R42 ; Acute systolic CHF (congestive heart failure) I50.21 ; Esophageal mass K22.89 ; Blurry vision H53.8 ; Other fatigue R53.83 ; Abnormal stress test R94.39 ; History of esophageal cancer Z85.01 ; Other hypotension I95.89 ; Sinus tachycardia R00.0 and Abnormal EKG R94.31 [facility] [address] [place] [address] 12/18/2023 Teri Mensah 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 and Acute systolic CHF (congestive heart failure) I50.21 [facility] [address] [address] 12/19/2023 Teri Mensah Cervical strain S16.1XXA ; Encounter for immunization Z23 and Immunization not carried out because of patient refusal Z28.21 [facility] [address] [place] [address] 01/02/2024 Ashutosh Roxi GERD (gastroesophage al reflux disease) K21.9 ; Dizziness R42 ; Acute systolic CHF (congestive heart failure) I50.21 ; Cardiomyopathy, unspecified type I42.9 ; 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 ; SOB (shortness of breath) on exertion R06.02 ; History of esophageal cancer Z85.01 ; H/O therapeutic radiation Z92.3 ; Lung cancer C34.90 and Other hypotension I95.89 [facility] [address] [place] [address] 03/13/2024 Paramjit Jefferson Dysphagia, unspecifi ed type R13.10 ; Ulcerative esophagitis K22.10 ; Esophageal stricture K22.2 and History of esophageal cancer Z85.01 [facility] [address] [place] [address], [place] [address] 03/27/2024 Sabine Hall SOB (shortness of breath) on exertion R06.02 ; Palpitations R00.2 ; GERD (gastroesophageal reflux disease) K21.9 ; Lung cancer C34.90 ; Tachycardia R00.0 ; Sinus tachycardia R00.0 and Other hypotension I95.89 [facility] [address] [place] [address] [address] [address] 04/08/2024 Senthil Camacho Shortness of breath R06.02 and Solitary pulmonary nodule R91.1 [facility] [address] [place] [address] 04/10/2024 Ashutosh Diane SOB (shortness of breath) on exertion R06.02 [facility] [address] [place] [address], [place] [address] 05/22/2024 Paramjit Jefferson History of esophagea l cancer Z85.01 ; Dysphagia R13.10 and Esophageal stricture K22.2 [facility] Office [address] [place] [address], [place] [address] 06/18/2024 Terichandu Mccabebaljit 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 ; Secondary malignant melanoma of right lung C78.01 ; Hypertensive heart disease with heart failure I11.0 ; CHF (congestive heart failure) I50.9 and Depression screen Z13.31 [facility] [address] [place] [address] 08/13/2024 Antoinette Altagracia Cancer C80.1 ; Esophageal carcinoma C15.9 ; senior care (current) use of opiate analgesic Z79.891 and Chronic pain syndrome G89.4 [facility] [address] [place] [address], [place] [address] 08/21/2024 Ashutosh Roxi SOB (shortness of breath) on exertion R06.02 ; Other fatigue R53.83 ; Dizziness R42 ; GERD (gastroesophageal reflux disease) K21.9 ; Esophageal carcinoma C15.9 ; Hypertensive heart disease with heart failure I11.0 and Chronic systolic (congestive) heart failure I50.22 [facility] [address] [place] [address] 08/27/2024 Antoinette Altagracia Cancer C80.1 ; Chron ic pain disorder G89.4 ; L-S radiculopathy M54.17 and 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 Z79.891 [facility] [place] [address] [place] [address] 03/19/2024 Teri Mensah [facility] [place] 09/17/2024 Teri Makenna GERD (gastroesophageal reflux disease) K21.9 and Acute systolic CHF (congestive heart failure) I50.21 [facility] [place] 10/05/2023 Teri Makenna Other chronic pain G89.29 and Depression F32.9 [facility] [place] 10/22/2023 Teri Mensah Dysphagia, unspecified type R13.10 and Acute systolic CHF (congestive heart failure) I50.21 [facility] [address] [place] [address] 10/22/2023 Ronit Gerber[address]a [address] [place] [address] 10/30/2023 Paige Ortez [facility] [address] [place] [address] 11/02/2023 Palak Schuster [facility] [address] [place] [address] 11/06/2023 Ashutosh Diane Acute systolic CHF (congestive heart failure) I50.21 ; Tachycardia R00.0 and Shortness of breath R06.02 [facility] [address] [place] [address] 11/07/2023 Ronit Stroud [facility] [address] [place] [address], [place] [address] 11/12/2023 Ashutosh Diane [facility] [address] [place] [address], [place] [address] 11/12/2023 Ashutosh Diane [facility] [place] 11/15/2023 Teri Mensah 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 and Cardiomyopathy, unspecified type I42.9 [facility] [address] [place] [address], [place] [address] 11/16/2023 Ashutoshjorge Diane [facility] [address] [place] [address] 11/19/2023 Ashutoshjorge Diane [facility] [address] [place] [address] 11/23/2023 Ashutosh Diane [facility] [address] [place] [address] 12/11/2023 Ashutoshjorge Diane [facility] [address] [place] [address] 12/17/2023 Ashutosh [facility] [address] [place] [address], [place] [address] 12/18/2023 Teri Mensah [facility] [address] [place] [address] 12/18/2023 [facility] [address] [place] [address] 12/18/2023 Teri Mensah GERD (gastroesophageal reflux disease) K21.9 and Other chronic pain G89.29 [facility] [address] [place] [address] 12/31/2023 [facility] [address] [place] [address] 01/15/2024 Teri Mensah Lung cancer C34.90 and Other chronic pain G89.29 [facility] [address] [place] [address] 01/18/2024 Paramjit Jefferson [facility] [address] [place] [address], [place] [address] 02/11/2024 [facility] [address] [place] [address] 02/11/2024 Ashutosh [facility] [address] [place] [address] 02/19/2024 Paramjit Jefferson [facility] [place] 02/20/2024 Teri Mensah Dysphagia R13.10 and 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 [facility] [place] 03/21/2024 Teri Mensah GERD (gastroesophageal reflux disease) K21.9 and Esophageal stenosis K22.2 [facility] [address] [place] [address] 03/25/2024 Paramjit Jefferson [facility] [address] [place] [address] 04/01/2024 Ashutosh Diane [facility] [address] [place] [address] [place] [address] 04/16/2024 Senthil Camacho [facility] [place] 04/17/2024 Teri Mensah SOB (shortness of breath) on exertion R06.02 and 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 [facility] [address] [place] [address] 04/22/2024 Ashutosh Diane [facility] [address] [place] [address] 04/25/2024 Paramjit Jefferson [facility] [address] [place] [address] [place] [address] 04/28/2024 Senthil Camacho [facility] [address] [place] [address] 05/08/2024 Abodunrin Badejo [facility] [place] 05/19/2024 Teri Makenna 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 and Solitary pulmonary nodule R91.1 [facility] [address] [place] [address] 05/22/2024 Paramjit Jefferson [facility] [address] [place] [address] 06/16/2024 Paramjit Jefferson Dysphagia, unspecifi ed type R13.10 ; Dysphagia R13.10 and Abnormal gastrointestinal PET scan R94.8 [facility] [place] 06/16/2024 Trei Makenna GERD (gastroesophageal reflux disease) K21.9 and Esophageal mass K22.89 [facility] [place] 07/17/2024 Teri Makenna 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 and GERD (gastroesophageal reflux disease) K21.9 [facility] [address] [place] [address] 08/14/2024 Antoinette Altagracia Cancer C80.1 [facility] [place] 08/18/2024 Teri Mensah Esophageal carcinoma C15.9 and 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 Assessments Encounter Date Diagnosis (ICD Code) Assessment Notes Treatment Notes Treatment Clinical Notes Section Notes 10/31/2023 Dysphagia, unspecified type (ICD-10 - R13.10) 10/31/2023 GERD (gastroesophageal reflux disease) (ICD-10 - K21.9) 10/22/2023 Dysphagia, unspecified type (ICD-10 - R13.10) 11/06/2023 Acute systolic CHF (congestive heart failure) (ICD-10 - I50.21) 11/06/2023 Tachycardia (ICD-10 - R00.0) 11/08/2023 Shortness of breath (ICD-10 - R06.02) 11/08/2023 Cardiomyopathy, unspecified type (ICD-10 - I42.9) 12/14/2023 GERD (gastroesophageal reflux disease) (ICD-10 - K21.9) 12/14/2023 Lightheaded (ICD-10 - R42) Likely due to hypotension and tachycardia. 11/15/2023 Malignant neoplasm of lower third of esophagus (ICD-10 - C15.5) 12/18/2023 Malignant neoplasm of lower third of esophagus (ICD-10 - C15.5) 12/18/2023 GERD (gastroesophageal reflux disease) (ICD-10 - K21.9) 12/19/2023 Cervical strain (ICD-10 - S16.1XXA) Resolved 01/02/2024 GERD (gastroesophageal reflux disease) (ICD-10 - K21.9) 01/02/2024 Dizziness (ICD-10 - R42) His BP is borderline low and he reports continued dizziness. Increase midodrine to 10 mg TID. 01/15/2024 Lung cancer (ICD-10 - C34.90) 02/20/2024 Dysphagia (ICD-10 - R13.10) 03/13/2024 Dysphagia, unspecified type (ICD-10 - R13.10) Mr. Noriega continues to have significant difficulty with getting an adequate nutrition. I recommended that he try different complete supplements that are available [id number] r to see which 1 he tolerates best and tried to take around 2000 [address] a day. Will have him call us if he cannot get his Voquezna prescription. We will have him return in 6 weeks for reevaluation. 03/13/2024 Ulcerative esophagitis (ICD-10 - K22.10) Mr. Noriega continues to have significant difficulty with getting an adequate nutrition. I recommended that he try different complete supplements that are available [id number] r to see which 1 he tolerates best and tried to take around 2000 [address] a day. Will have him call us if he cannot get his Voquezna prescription. We will have him return in 6 weeks for reevaluation. 03/27/2024 SOB (shortness of breath) on exertion (ICD-10 - R06.02) Holter device was applied today. Patient was instructed on number of days to wear device. Patient was instructed that there device is water resistant. They can wear the device in the shower as long as the device itself does not become submerged in water. There are extra patches in the kit provided dressing changes were reviewed today if needed. The importance of shipping their device back was stressed. Patient will need to replace the device into the box and take this to the nearest UPS dropbox. We will contact them with results once the report is received. 03/27/2024 Palpitations (ICD-10 - R00.2) Increase atenolol to 50 mg once per day. Continue current dose of digoxin. Given his palpitations with minimal exertion, obtain 7-day Holter monitor. 04/08/2024 Shortness of breath (ICD-10 - R06.02) 04/08/2024 Solitary pulmonary nodule (ICD-10 - R91.1) I will schedule patient for robotic navigational bronchoscopy April 25, 2024. Obtain ION CT. I have instructed the patient to call once he has this done and I will review the images before we proceed with biopsy. 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 There is no evidence of persistent cancer at this time. He does have inflammation and stricture. Will repeat an upper endoscopy with dilation to try and help prevent recurrent persistent meat impactions. This was discussed with the patient and he wishes to proceed. 05/22/2024 Dysphagia (ICD-10 - R13.10) His esophageal cancer in his distal esophagus appears to be adequately treated. There is no evidence of persistent cancer at this time. He does have inflammation and stricture. Will repeat an upper endoscopy with dilation to try and help prevent recurrent persistent meat impactions. This was discussed with the patient and he wishes to proceed. 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 Take potassium 10 mEQ alongside Lasix. 08/21/2024 Other fatigue (ICD-10 - R53.83) 08/27/2024 Cancer (ICD-10 - C80.1) 08/27/2024 Chronic pain disorder (ICD-10 - G89.4) 08/14/2024 Cancer (ICD-10 - C80.1) 08/18/2024 Esophageal carcinoma (ICD-10 - C15.9) Learning About Esophageal Cancer material was published 09/17/2024 GERD (gastroesophageal reflux disease) (ICD-10 - K21.9) 09/27/2023 Acute systolic CHF (congestive heart failure) (ICD-10 - I50.21) Has apt with Cardiology on 10-19-23. 09/27/2023 Hospital discharge follow-up (ICD-10 - Z09) 10/03/2023 Advanced care planning/counselin g discussion (ICD-10 - Z71.89) Provided advanced care planning including the explanation and discussion of advance directives such as standard forms by the physician or other qualified healthcare professional, [id number]-[id number] with the patient, family member(s), and/or surrogate. Diagnosis reconciliation performed and verified as listed in Assessments. 10/05/2023 Other chronic pain (ICD-10 - G89.29) 10/19/2023 Acute systolic CHF (congestive heart failure) (ICD-10 - I50.21) Possibly chemo related, no indication of ischemia. Continue with current mgmt and close monitoring. EF 35-40% 07/2023. Briefly discussed Entresto today. The patient would prefer no new medications at this point as he is on the fence as to whether or not he even wants to continue with chemo. But he does agree to follow-up in 3 months with a limited echo. He would consider Entresto at that time possibly. 10/19/2023 Tachycardia (ICD-10 - R00.0) 10/19/2023 Elevated troponin (ICD-10 - R74.8) 10/05/2023 Depression (ICD-10 - F32.9) 10/03/2023 Encounter for Medicare annual wellness exam (ICD-10 - Z00.00) Diagnosis reconciliation performed and verified as listed in Assessments. 09/27/2023 Lung cancer (ICD-10 - C34.90) Treated by [facility]. 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 Diane. 06/16/2024 Dysphagia (ICD-10 - R13.10) 06/16/2024 Esophageal mass (ICD-10 - K22.89) 05/22/2024 Esophageal stricture (ICD-10 - K22.2) His esophageal cancer in his distal esophagus appears to be adequately treated. There is no evidence of persistent cancer at this time. He does have inflammation and stricture. Will repeat an upper endoscopy with dilation to try and help prevent recurrent persistent meat impactions. This was discussed with the patient and he wishes to proceed. 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 03/13/2024 Esophageal stricture (ICD-10 - K22.2) Mr. Noriega continues to have significant difficulty with getting an adequate nutrition. I recommended that he try different complete supplements that are available [id number] r to see which 1 he tolerates best and tried to take around 2000 [address] a day. Will have him call us if he cannot get his Voquezna prescription. We will have him return in 6 weeks for reevaluation. 02/20/2024 Malignant neoplasm of lower third of esophagus (ICD-10 - C15.5) 01/15/2024 Other chronic pain (ICD-10 - G89.29) 01/02/2024 Acute systolic CHF (congestive heart failure) (ICD-10 - I50.21) Repeat limited echo in 3 months to evaluate his EF. His rates are better controlled today. Continue current dose of atenolol and digoxin. 12/19/2023 Encounter for immunization (ICD-10 - Z23) 12/18/2023 Other chronic pain (ICD-10 - G89.29) 12/18/2023 Acute systolic CHF (congestive heart failure) (ICD-10 - I50.21) 11/15/2023 Cardiomyopathy, unspecified type (ICD-10 - I42.9) 12/14/2023 Acute systolic CHF (congestive heart failure) (ICD-10 - I50.21) October 2023 echo revealed EF at 40-45%, GLS -13.3%, mild LVH, trace tricuspid regurgitation, and mild mitral regurgitation. Patient has received radiation therapy in the past and is currently on chemotherapy, which may explain his reduced EF. 11/08/2023 Tachycardia (ICD-10 - R00.0) 11/06/2023 Shortness of breath (ICD-10 - R06.02) 10/22/2023 Acute systolic CHF (congestive heart failure) (ICD-10 - I50.21) 10/31/2023 Malignant neoplasm of lower third of esophagus (ICD-10 - C15.5) 10/31/2023 History of esophageal cancer (ICD-10 - Z85.01) 11/08/2023 GERD (gastroesophageal reflux disease) (ICD-10 - K21.9) 12/14/2023 Esophageal mass (ICD-10 - K22.89) 12/19/2023 Immunization not carried out because of patient refusal (ICD-10 - Z28.21) 01/02/2024 Cardiomyopathy, unspecified type (ICD-10 - I42.9) 03/13/2024 History of esophageal cancer (ICD-10 - Z85.01) Mr. Noriega continues to have significant difficulty with getting an adequate nutrition. I recommended that he try different complete supplements that are available [id number] r to see which 1 he tolerates best and tried to take around 2000 [address] a day. Will have him call us if he cannot get his Voquezna prescription. We will have him return in 6 weeks for reevaluation. 03/27/2024 Lung cancer (ICD-10 - C34.90) He follows with Dr. Riley. 06/16/2024 Abnormal gastrointestinal PET scan (ICD-10 - R94.8) 06/18/2024 CHF (congestive heart failure) (ICD-10 - I50.9) 08/13/2024 senior care (current) use of opiate analgesic (ICD-10 - Z79.891) 08/21/2024 GERD (gastroesophageal reflux disease) (ICD-10 - K21.9) 08/27/2024 senior care (current) use of opiate analgesic (ICD-10 - Z79.891) 09/27/2023 Malignant neoplasm of lower third of esophagus (ICD-10 - C15.5) He has finished treatment for esophageal cancer, he continues to see [facility] for lung cancer. 10/03/2023 Acute systolic CHF (congestive heart failure) (ICD-10 - I50.21) Has apt with Cardiology on 10-19-23. Diagnosis reconciliation performed and verified as listed in Assessments. 10/19/2023 Dyspnea (ICD-10 - R06.00) 10/19/2023 Lung cancer (ICD-10 - C34.90) Currently follow with Dr. Riley. 10/03/2023 Lung cancer (ICD-10 - C34.90) Treated by [facility]. Diagnosis reconciliation performed and verified as listed in Assessments. 08/21/2024 Esophageal carcinoma (ICD-10 - C15.9) He will establish with oncology in [place]. 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 If his EF has not improved by his next echo, we will consider scheduling cardiac catheterization. 03/27/2024 Sinus tachycardia (ICD-10 - R00.0) Increase atenolol to 50 mg once per day. 08/21/2024 Hypertensive heart disease with heart failure (ICD-10 - I11.0) 08/21/2024 Chronic systolic (congestive) heart failure (ICD-10 - I50.22) EF 45-50% per March 2024 echo. His heart rate is 97 BPM today. Start bisoprolol 5 mg once per day (at nighttime) for rate control. 03/27/2024 Other hypotension (ICD-10 - I95.89) Continue current dose of midodrine. 01/02/2024 History of esophageal cancer (ICD-10 - Z85.01) 12/14/2023 Abnormal stress test (ICD-10 - R94.39) November 2023 Lexiscan showed a small area of ischemia in the inferior wall--EF 50%. Due to advanced maligancy, I would not recommend [facility] at this time. 11/08/2023 Dyspnea (ICD-10 - R06.00) 11/08/2023 Lung cancer (ICD-10 - C34.90) Currently follow with Dr. Riley. 12/14/2023 History of esophageal cancer (ICD-10 - Z85.01) 01/02/2024 H/O therapeutic radiation (ICD-10 - Z92.3) 01/02/2024 Lung cancer (ICD-10 - C34.90) 12/14/2023 Other hypotension (ICD-10 - I95.89) Start midodrine 5 mg TID for hypotension. 12/14/2023 Sinus tachycardia (ICD-10 - R00.0) Start atenolol 25 mg once per day for sinus tachycardia. EKG will be obtained today. 01/02/2024 Other hypotension (ICD-10 - I95.89) His BP is borderline low and he reports continued dizziness. Increase midodrine to 10 mg TID. 12/14/2023 Abnormal EKG (ICD-10 - R94.31) EKG from today --Indication: tachycardia noted on physical exam Findings: sinus tachycardia with diffuse ST elevations and MD depressions. ST elevations and MD depressions are new when compared to prior EKG. 10/31/2023 Other Repeat EGD toda y for dilation. 10/19/2023 Other I would have no objections for the patient to undergo EDG for possible stricture. 12/14/2023 Other Given the concerning changes on today's EKG, I have recommended for the patient proceed to the ER for further evaluation. Follow up in 6 months, or sooner if needed. Sahara Shane, am scribing for Ashutosh Diane MD.Ashutosh Shane MD, personally performed the services prescribed in this documentati on, as scribed by Sahara Berumen, and it is both accurate and complete. 01/02/2024 Other Follow up in 3 months with limited echo. Sahara Shane, am scribing for Ashutosh Diane MD.Ashutosh Shane MD, personally performed the services prescribed in this documentati on, as scribed by Sahara Berumen, and it is both accurate and complete. 03/27/2024 Other Follow up with Dr. Diane in 4-6 months, or sooner if needed. Sahara Shane am scribing for Sabine Hall APN.Sabine Shane APN, personally performed the services prescribed in this documentati on, as scribed by Sahara Berumen, and it is both accurate and complete. 04/08/2024 Other Zoila Shane am scribing for, and in the presence of Dr. Senthil Camacho. I, Dr. Senthil Camacho, personally performed the services described in this documentati on, as scribed by Zoila Cordova in my presence, and it is both accurate and complete. 08/13/2024 Other Consult : palliative Care/ Hospice RTC: 2 weeks UDS RX: oxycodone 15mg x 4/day Narcan I have taken history and performed physical exam on patient as well as reviewed diagnosis today. We reviewed most current pain management medication guidelines which include NSAIDs, TCAs, SNRIs, antiepileptic drugs (AEDs) as first line therapies. We discussed our goal-directed therapy should include the following: a healthier lifestyle of proper nutrition and weight control, proper body mechanics, smoking cessation, muscle and core strengthening, coping strategies/cogniti ve therapy, targeted interventional therapy, and avoidance of painful triggers. Patient understands our goal is to avoid chronic opioid, if possible, and exhaust all other treatment options first. We will perform opioid risk stratification using SOAPP today. We discussed that realistic goals in chronic pain are a 40% overall improvement (reduction in pain, improvement in function and improvement in enjoyment of life). The patient may be considered for opioid management in order to improve functional status and overall quality of life. This is not first-line therapy, and most other treatment options have failed as above. The patient has been made aware of all clinic policies, compliance policies, the full risks/benefits of opioids, all in writing, as well as signed an opioid agreement which is attached to the chart. Patient is reminded today that a 30-40% overall improvement in chronic pain and functional status is our goal. We recommend the following prescribing and monitoring guidelines: 1. Single prescriber and single pharmacy. 2. Signed opioid treatment agreement. 3. Use of lowest possible effective dosage in accordance with CDC guidelines. 4. Cautious use of opioids with conditions that may potentiate opioid adverse effects including COPD, CHF, sleep apnea, elderly, or history of renal or hepatic dysfunction. 5. Warned about combinations with sedative-hypnotics , benzodiazepines, or barbiturates unless there is a specific medical indication for the combination. We do not write benzodiazepines or barbiturates, and recommend assessment by psychiatrist if needed. 6. Assess physical function as well as pain status routinely for improvement. 7. Routine monitoring for medication misuse and/or drug-seeking behaviors. 8. Routine and random urine drug screenings. 9. Qslg-vr-gyvk followup on any patient taking prescribed opioids at least every 2 months. 10. Continued use of alternatives to opioid therapy as described elsewhere in treatment plan. 11. If no improvement in functional status and/or problems with compliance, opioids will be tapered and discontinued. RECOMMEND SALIVA TESTING TODAY Saliva drug screening will be performed today to ensure compliance with opioid therapy, as well as screen for any illicit or nonprescribed medications/drugs. Sample will be sent for quantitative analysis to test for all prescribed medications. Patient has been made aware of this policy and agrees to abide by our saliva testing policy. 08/21/2024 Other Follow up in 3 months. Sahara Shane, am scribing for Ashutosh Diane MD.Ashutosh Shane MD, personally performed the services prescribed in this documentati on, as scribed by Sahara Berumen, and it is both accurate and complete. Plan Of Treatment Pending Test Test Name Order Date Chest PA/Lat-[id number] 07/24/2022 Chest PA/Lat-13043 09/07/2023 Chest PA/Lat-13968 09/07/2023 Fluoro Guided Vascular Access-20795 08/14 Fluoro Guided Vascular Access-34320 08/14 bunnyzzPET Skullbase To Mid Thigh-76742 04/13 Electrocardiogram 12 Lead Tracing-85611 09/07/2023 US Surgery Unlisted 09/12/2023 US Surgery Unlisted 09/12/2023 EGD, Upper GI Diagnostic-[id number] 5 Esoph Endoscopy, Dilation-68103 05/23/19 25 EGD, Upper GI Diagnostic-[id number] 5 Future Test Test Name Order Date EGD, Upper GI Diagnostic-[id number] 5 Next Appt Details Provider Name:Sabine Abarcadelores flores, 11/28/2024 10:15:00 AM, [address] [place] [address], [phone], Insurance Providers Payer Name Payer Address Payer Phone Subscriber Number Group Number Insured Name Patient Relationship to Insured Coverage Start Date Coverage End Date [employer] Medicare Replacement [address] [address] [place] [address] [id number] ENOCH GIL Self - patient is the insured Medications Administered Medication Instructions Date of Administration Dosage Notes Ketorolac Tromethamine 07/15/2021 60 mg Rocephin 07/24/2022 1 g [facility] [id number] [id number] pt tolerated well/instructed to wait 20 min Medical (General) History Medical History History ICD Code Hiatal hernia Osteoarthritis Restless leg syndrome Skin Cancer Depression Fibromyalgia GERD Rodriguez's esophagus with high grade dysp lasia esophageal cancer, tumor in stomach lung cancer heart failure Mumps Pneumonia Migraine Headaches Blood/Plasma transfusion Back Trouble Surgical History Surgery Date(Month/Year) Right hip ORIF left knee replacement Eye surgery for both eyes for alignment cholecystectomy EGD with PEG Tube Placement PEG Removal in clinic 10/2022 biopsy of cyst in the lung EGD Chronic ulcerated esophagitis/no ble ed/dilation/7cm HH 10-31-2023 Chemo/radiation EGD-4 cm hiatal hernia, esophageal steno sis-dilated 05-01-2024 colonoscopy 2016 Hospitalization History Reason Date(Month/Year) see surgery list Neck pain and spasms 12/12/23 Acute on chronic systolic heart failure 8.8.24
--- OUTSIDE RECORDS SUMMARY | 2024-09-26 11:11 | XMS_ITS | Clinical Summary ---
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
--- OUTSIDE RECORDS SUMMARY | 2024-09-26 11:11 | XMS_ITS | Encounter Summary ---
Author Organization [employer] [facility] Address [address] [place] [address] Care Team Providers Care Wharf Attendant Name Role Phone Unavailable Primary Care Provider Unavailabl e Encounter Details Date Type Department Care Team (Latest Contact Info) Description 05/27/2001 Outpatient Historical HIS [facility] Darrick Rick MD [address] [place] [address] LUMBAGO (Primary Dx); General symptoms NEC; DEPRESSIVE DISORDER NEC Social History Tobacco Use Types Packs/Day Years Used Date Smoking Tobacco: Never Assessed Sex and Gender Information Value Date Recorded Sex Assigned at Not on file 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
--- OUTSIDE RECORDS SUMMARY | 2024-09-26 11:12 | XMS_ITS | Encounter Summary ---
Author Organization [employer] [facility] Address [address] [place] [address] Care Team Providers Care Financial Reporting Specialist Name Role Phone Unavailable Primary Care Provider Unavailabl e Encounter Details Date Type Department Care Team (Latest Contact Info) Description 01/21/2001 Outpatient Historical HIS [facility] Darrick Rick MD [address] [place] [address] DEPRESSIVE DISORDER NEC (Primary Dx); General symptoms NEC; LUMBOSACRAL NEURITIS NOS; INSOMNIA NEC Social History Tobacco Use Types Packs/Day Years Used Date Smoking Tobacco: Never Assessed Sex and Gender Information Value Date Recorded Sex Assigned at Not on file 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
--- OUTSIDE RECORDS SUMMARY | 2024-09-26 11:12 | XMS_ITS | Encounter Summary ---
Author Organization [email or web address] [facility] Address [address] [place] [address] Care Team Providers Care It Security Manager Name Role Phone Unavailable Primary Care Provider Unavailabl e Encounter Details Date Type Department Care Team (Latest Contact Info) Description 11/26/2000 Outpatient Historical HIS [facility] Darrick Rick MD [address] [place] [address] Lumbago (Primary Dx); General symptoms NEC; Depressive disorder, not elsewhere classified Social History Tobacco Use Types Packs/Day Years Used Date Smoking Tobacco: Never Assessed Sex and Gender Information Value Date Recorded Sex Assigned at Not on file 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
--- OUTSIDE RECORDS SUMMARY | 2024-09-26 11:12 | XMS_ITS | Encounter Summary ---
Author Organization [email or web address] [facility] Address [address] [place] [address] Care Team Providers Care Parts Sales Counterperson Name Role Phone Unavailable Primary Care Provider Unavailabl e Encounter Details Date Type Department Care Team (Latest Contact Info) Description 10/29/2000 Outpatient Historical HIS [facility] Darrick Rick MD [address] [place] [address] Lumbago (Primary Dx); Depressive disorder, not elsewhere classified Social History Tobacco Use Types Packs/Day Years Used Date Smoking Tobacco: Never Assessed Sex and Gender Information Value Date Recorded Sex Assigned at Not on file 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
--- OUTSIDE RECORDS SUMMARY | 2024-09-26 11:12 | XMS_ITS | Encounter Summary ---
Author Organization [email or web address] [facility] Address [address] [place] [address] Care Team Providers Care Biology Laboratory Assistant Name Role Phone Unavailable Primary Care Provider Unavailabl e Encounter Details Date Type Department Care Team (Latest Contact Info) Description 02/22/2001 Outpatient Historical HIS [facility] Darrick Rick MD [address] [place] [address] LUMBAGO (Primary Dx); General symptoms NEC; DEPRESSIVE DISORDER NEC Social History Tobacco Use Types Packs/Day Years Used Date Smoking Tobacco: Never Assessed Sex and Gender Information Value Date Recorded Sex Assigned at Not on file 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
--- OUTSIDE RECORDS SUMMARY | 2024-09-26 11:12 | XMS_ITS | Encounter Summary ---
Author Organization [employer] [facility] Address [address] [place] [address] Care Team Providers Care Office Support Name Role Phone Unavailable Primary Care Provider Unavailabl e Encounter Details Date Type Department Care Team (Latest Contact Info) Description 04/25/2001 Outpatient Historical HIS [facility] Darrick Rick MD [address] [place] [address] General symptoms NEC (Primary Dx); NEURALGIA/NEURITIS NOS; LUMBAGO; ANXIETY STATE NOS Social History Tobacco Use Types Packs/Day Years Used Date Smoking Tobacco: Never Assessed Sex and Gender Information Value Date Recorded Sex Assigned at Not on file 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
--- OUTSIDE RECORDS SUMMARY | 2024-09-26 11:12 | XMS_ITS | Encounter Summary ---
Author Organization [employer] [facility] Address [address] [facility] [place] [address] Care Team Providers Care State Attorney Name Role Phone Unavailable Primary Care Provider Unavailabl e Encounter Details Date Type Department Care Team (Latest Contact Info) Description 08/27/2000 Outpatient Historical HIS [facility] Kojo Villarreal NO ADDRESS ON FILE Lumbago (Primary Dx); Pain in joint, pelvic region and thigh Social History Tobacco Use Types Packs/Day Years Used Date Smoking Tobacco: Never Assessed Sex and Gender Information Value Date Recorded Sex Assigned at Not on file 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
--- OUTSIDE RECORDS SUMMARY | 2024-09-26 11:12 | XMS_ITS | Encounter Summary ---
Author Organization [employer] [facility] Address [address] [place] [address] Care Team Providers Care Traveling Engineer Name Role Phone Unavailable Primary Care Provider Unavailabl e Encounter Details Date Type Department Care Team (Latest Contact Info) Description 09/28/2000 Outpatient Historical HIS [facility] Darrick Rick MD [address] [place] [address] Lumbago (Primary Dx); Myalgia and myositis, unspecified; General symptoms NEC; Depressive disorder, not elsewhere classified Social History Tobacco Use Types Packs/Day Years Used Date Smoking Tobacco: Never Assessed Sex and Gender Information Value Date Recorded Sex Assigned at Not on file 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
--- OUTSIDE RECORDS SUMMARY | 2024-09-26 11:12 | XMS_ITS | Encounter Summary ---
Author Organization [employer] [facility] Address [address] [facility] [place] [address] Care Team Providers Care Fabric Lay Out Worker Name Role Phone Unavailable Primary Care Provider Unavailabl e Encounter Details Date Type Department Care Team (Latest Contact Info) Description 09/10/2000 Outpatient Historical HIS [facility] Kojo Villarreal NO ADDRESS ON FILE Lumbago (Primary Dx); Pain in joint, pelvic region and thigh; Spasm of muscle Social History Tobacco Use Types Packs/Day Years Used Date Smoking Tobacco: Never Assessed Sex and Gender Information Value Date Recorded Sex Assigned at Not on file 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
--- OUTSIDE RECORDS SUMMARY | 2024-09-26 11:12 | XMS_ITS | Encounter Summary ---
Author Organization [employer] [facility] Address [address] [place] [address] Care Team Providers Care Foundry Manager Name Role Phone Unavailable Primary Care Provider Unavailabl e Encounter Details Date Type Department Care Team (Latest Contact Info) Description 12/24/2000 Outpatient Historical HIS [facility] Darrick Rick MD [address] [place] [address] DEPRESSIVE DISORDER NEC (Primary Dx); LUMBAGO; General symptoms NEC Social History Tobacco Use Types Packs/Day Years Used Date Smoking Tobacco: Never Assessed Sex and Gender Information Value Date Recorded Sex Assigned at Not on file 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
--- OUTSIDE RECORDS SUMMARY | 2024-09-26 11:12 | XMS_ITS | Encounter Summary ---
Author Organization [employer] [facility] Address [address] [place] [address] Care Team Providers Care Director Search Name Role Phone Unavailable Primary Care Provider Unavailabl e Encounter Details Date Type Department Care Team (Latest Contact Info) Description 03/25/2001 Outpatient Historical HIS [facility] Darrick Rick MD [address] [place] [address] LUMBAGO (Primary Dx); General symptoms NEC; INSOMNIA NEC; DEPRESSIVE DISORDER NEC Social History Tobacco Use Types Packs/Day Years Used Date Smoking Tobacco: Never Assessed Sex and Gender Information Value Date Recorded Sex Assigned at Not on file 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
[2024-09-26] MEDS: lidocaine 2% viscous 15 ML, aluminum-mag hydrox-simethicon 30 ML, sucralfate oral liq 1 GM PO (11:21)
[2024-09-26 11:25] LABS: Hematocrit 37.0 % (37-53); Hemoglobin 12.30 g/dL (11.27-16.99); Mean Corpuscular HGB Conc 33.2 g/dL (30-55); Mean Corpuscular Hemoglobin 29.4 pg (27-33); Mean Corpuscular Volume 88.5 fl (82-101); Nucleated Red Blood Cells % 0 %; Platelet Count 246 10^3/cmm (157-399); Red Blood Count 4.18 10^6/uL (3.85-5.65); White Blood Count 4.30 10^3/uL (3.29-11.43)
[2024-09-26 11:30] VITALS: BP 107/78; PULSE 102; RESP 23; O2SAT 93
[2024-09-26 11:42] LABS: Alanine Aminotransferase 16 U/L (0-41); Albumin Level 3.9 g/dL (3.5-5.2); Alkaline Phosphatase 193 U/L (40-130); Anion Gap 17.9 (5-19); Aspartate Amino Transferase 22 U/L (0-40); Blood Urea Nitrogen 23 mg/dL (8-23); Calcium 9.8 mg/dL (8.5-10.5); Carbon Dioxide 22 mmol/L (22-29); Chloride 102 mmol/L (98-107); Creatinine Clr Calc Pharmacy 98.1836; Globulin 2.9 g/dL (1.3-4.6); Glucose 99 mg/dL (65-115); Lipase 21 U/L (13-60); Osmolality Calculated 290 mOsm/kg (285-295); Potassium 3.9 mmol/L (3.5-5.1); Sodium 138 mmol/L (136-145); Total Protein 6.8 g/dL (6.6-8.7)
[2024-09-26 11:44] LABS: Troponin(5th) Baseline 9 ng/L (0-15)
[2024-09-26 12:30] VITALS: BP 105/71; PULSE 81; RESP 18; O2SAT 97
[2024-09-26 13:00] VITALS: BP 98/72; PULSE 89; RESP 17; O2SAT 96
[2024-09-26 13:10] VITALS: BP 98/72; PULSE 98; RESP 16; O2SAT 96
== END 2024-09-26 13:10 | disposition home or self-care (01) ==
PROVIDERS: Emergency Provider Emergency Medicine; PCP Nurse Practitioner Family
DX: C15.9 Malignant neoplasm of esophagus, unspecified (principal); R07.9 Chest pain, unspecified
CPT/HCPCS: 71045; 80053; 83690; 84484; 85025; 96374; 99285; J1642; J9999

== ENCOUNTER 2024-10-08 09:00 | Oncology outpatient (recurring) (ONCR) | payer MEDICARE, SELFPAY ==
[2024-09-16 08:28] LABS: Hematocrit 32.8 % (37-53); Hemoglobin 10.70 g/dL (11.27-16.99); Mean Corpuscular HGB Conc 32.6 g/dL (30-55); Mean Corpuscular Hemoglobin 28.8 pg (27-33); Mean Corpuscular Volume 88.2 fl (82-101); Nucleated Red Blood Cells % 0 %; Platelet Count 220 10^3/cmm (157-399); Red Blood Count 3.72 10^6/uL (3.85-5.65); White Blood Count 2.58 10^3/uL (3.29-11.43)
[2024-09-16 08:48] LABS: Alanine Aminotransferase 29 U/L (0-41); Albumin Level 3.7 g/dL (3.5-5.2); Alkaline Phosphatase 267 U/L (40-130); Anion Gap 13.9 (5-19); Aspartate Amino Transferase 26 U/L (0-40); Blood Urea Nitrogen 25 mg/dL (8-23); Calcium 9.3 mg/dL (8.5-10.5); Carbon Dioxide 22 mmol/L (22-29); Chloride 103 mmol/L (98-107); Globulin 3.5 g/dL (1.3-4.6); Glucose 131 mg/dL (65-115); Osmolality Calculated 286 mOsm/kg (285-295); Potassium 3.9 mmol/L (3.5-5.1); Sodium 135 mmol/L (136-145); Total Protein 7.2 g/dL (6.6-8.7)
[2024-09-24 07:56] LABS: Hematocrit 33.2 % (37-53); Hemoglobin 11.10 g/dL (11.27-16.99); Mean Corpuscular HGB Conc 33.4 g/dL (30-55); Mean Corpuscular Hemoglobin 29.2 pg (27-33); Mean Corpuscular Volume 87.4 fl (82-101); Nucleated Red Blood Cells % 0 %; Platelet Count 252 10^3/cmm (157-399); Red Blood Count 3.80 10^6/uL (3.85-5.65); White Blood Count 4.79 10^3/uL (3.29-11.43)
[2024-09-24 08:27] LABS: Alanine Aminotransferase 17 U/L (0-41); Albumin Level 3.7 g/dL (3.5-5.2); Alkaline Phosphatase 214 U/L (40-130); Anion Gap 12.0 (5-19); Aspartate Amino Transferase 25 U/L (0-40); Blood Urea Nitrogen 22 mg/dL (8-23); Calcium 9.4 mg/dL (8.5-10.5); Carbon Dioxide 26 mmol/L (22-29); Chloride 105 mmol/L (98-107); Creatinine Clr Calc Pharmacy 97.9598; Globulin 3.3 g/dL (1.3-4.6); Glucose 99 mg/dL (65-115); Osmolality Calculated 291 mOsm/kg (285-295); Potassium 4.0 mmol/L (3.5-5.1); Sodium 139 mmol/L (136-145); Thyroid Stimulating Hormone 2.52 uIU/mL (0.27-4.20); Total Protein 7.0 g/dL (6.6-8.7)
[2024-09-24] MEDS: dexamethasone 4 mg/mL INJ 5 mL 12 MG IVP (09:18)
[2024-09-24] MEDS: TRASTUZUMAB ANNS IV (10:26)
[2024-09-24] MEDS: SODIUM CHLORIDE 0.9% IV (10:26)
[2024-09-24] MEDS: atropine 1 mg/mL SDV 1 mL 0.4 MG IV (11:07)
[2024-09-24] MEDS: leucovorin 820 MG in dextrose 5% 250 ML 166.67 MG IV (11:08)
[2024-09-24] MEDS: fluorouraciL 50 mg/ml MDV 100 mL 824 MG IVP (12:55)
[2024-09-24] MEDS: SODIUM CHLORIDE IV (13:09)
[2024-09-24] MEDS: FLUOROURACIL IV (13:09)
[2024-09-24] MEDS: ELASTOMERIC PUMP PUMP IV (13:09)
[2024-09-24 13:15] VITALS: BP 111/72; PULSE 62; RESP 17; TEMP 36.2; O2SAT 95
[2024-09-25 10:19] LABS: Magnesium 1.6 mg/dL (1.7-2.3)
[2024-09-26 10:27] VITALS: BP 105/75; PULSE 118; RESP 17; TEMP 36.6; O2SAT 98
[2024-09-26] MEDS: magnesium sulfate premix 1 GM/100 ML PIGGYBACK IV (10:42)
--- NOTE | 2024-09-26 10:56 | PC.NURSE ---
Pt in infusion room for pump unhook and 1g magnesium. Pt complains of chest discomfort. Elevated HR and short of breath. O2 99%. Mary Mcknight NP was notified. Pepcid 20mg ordered. Pepcid given with no relief. Pt states pain is getting worse and difficulty breathing. Rapid was called at 1048. Pt taken to ER in wheelchair for evaluation. Pts port remained accessed, magnesium sent with pt to ER.
[2024-09-26 11:00] VITALS: BP 119/83; PULSE 108; O2SAT 99
--- NOTE | 2024-09-26 11:05 | ECG_ITS ---
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 Measurements Intervals [place] Rate: 102 P: 12 NM: 164 QRS: -12 QRSD: 91 T: 23 QT: 344 QTc: 449 Interpretive Statements SINUS TACHYCARDIA LOW QRS VOLTAGE IN PRECORDIAL LEADS [QRS DEFLECTION < 1.0 mV IN CHEST LEADS] ST ELEVATION, CONSIDER LATERAL INJURY Compared to ECG 06/23/2018 17:28:28 ST ELEVATION NOW PRESENT Electronically Signed On 09-26-2024 14:39:07 CDT by Juan R Turner M.D. [email or web address]
[2024-10-08 09:09] LABS: Hematocrit 31.8 % (37-53); Hemoglobin 10.40 g/dL (11.27-16.99); Mean Corpuscular HGB Conc 32.7 g/dL (30-55); Mean Corpuscular Hemoglobin 28.7 pg (27-33); Mean Corpuscular Volume 87.8 fl (82-101); Nucleated Red Blood Cells % 0 %; Platelet Count 196 10^3/cmm (157-399); Red Blood Count 3.62 10^6/uL (3.85-5.65); White Blood Count 3.46 10^3/uL (3.29-11.43)
[2024-10-08 09:31] LABS: Alanine Aminotransferase 20 U/L (0-41); Albumin Level 3.6 g/dL (3.5-5.2); Alkaline Phosphatase 210 U/L (40-130); Anion Gap 12.8 (5-19); Aspartate Amino Transferase 27 U/L (0-40); Blood Urea Nitrogen 16 mg/dL (8-23); Calcium 9.2 mg/dL (8.5-10.5); Carbon Dioxide 25 mmol/L (22-29); Chloride 105 mmol/L (98-107); Creatinine Clr Calc Pharmacy 97.9598; Globulin 3.0 g/dL (1.3-4.6); Glucose 106 mg/dL (65-115); Magnesium 1.5 mg/dL (1.7-2.3); Osmolality Calculated 290 mOsm/kg (285-295); Potassium 3.8 mmol/L (3.5-5.1); Sodium 139 mmol/L (136-145); Total Protein 6.6 g/dL (6.6-8.7)
[2024-10-08] MEDS: magnesium sulfate premix 2 GM/50 ML PIGGYBACK IV ×2 (11:43→12:37)
[2024-10-08] MEDS: aprepitant 130 mg/18 ml SDV IVP (12:53)
[2024-10-08] MEDS: dexamethasone 4 mg/mL INJ 5 mL 12 MG IVP (13:01)
[2024-10-08] MEDS: TRASTUZUMAB ANNS IV (13:40)
[2024-10-08] MEDS: SODIUM CHLORIDE 0.9% IV (13:40)
[2024-10-08] MEDS: atropine 1 mg/mL SDV 1 mL 0.4 MG IV (14:20)
[2024-10-08] MEDS: leucovorin 820 MG in dextrose 5% 250 ML 166.67 MG IV (14:22)
[2024-10-08] MEDS: fluorouraciL 50 mg/ml MDV 100 mL 820 MG IVP (16:05)
[2024-10-08] MEDS: FLUOROURACIL IV (16:06)
[2024-10-08] MEDS: ELASTOMERIC PUMP PUMP IV (16:06)
[2024-10-08 16:16] VITALS: BP 119/73; PULSE 72; RESP 17; TEMP 36.6; O2SAT 96
== END 2024-10-08 23:59 | disposition home or self-care (01) ==
PROVIDERS: Internal Medicine Medical Oncology; Nurse Practitioner Family; PCP Nurse Practitioner Family; Visit Provider Internal Medicine
DX: Z51.11 Encounter for antineoplastic chemotherapy; Z51.12 Encounter for antineoplastic immunotherapy; C15.9 Malignant neoplasm of esophagus, unspecified; C78.00 Secondary malignant neoplasm of unspecified lung; E83.42 Hypomagnesemia; E87.6 Hypokalemia; G62.9 Polyneuropathy, unspecified; Z92.3 Personal history of irradiation; Z79.899 Other long term (current) drug therapy; Z79.52 Long term (current) use of systemic steroids; Z79.631 Long term (current) use of antimetabolite agent; Z95.828 Presence of other vascular implants and grafts; Z53.9 Procedure and treatment not carried out, unspecified reason
CPT/HCPCS: 80053; 83735; 84443; 85025; 93005; 96367; 96368; 96375; 96411; 96413; 96415; 96416; 96417; 96523; 99213; 99214; J0185; J0461; J0640; J1100; J1453; J2469; J3475; J3490; J7050; J7060; J9190; J9206; J9999; Q5117

== ENCOUNTER 2024-10-10 10:09 | Oncology outpatient (recurring) (ONCR) | payer MEDICARE, SELFPAY ==
[2024-10-10 10:24] VITALS: BP 98/74; PULSE 107; RESP 17; TEMP 36.6; O2SAT 98
== END 2024-10-12 23:59 | disposition home or self-care (01) ==
LOC: ONCMED 10:10
PROVIDERS: PCP Nurse Practitioner Family; Visit Provider Internal Medicine
DX: Z45.1 Encounter for adjustment and management of infusion pump (principal)
CPT/HCPCS: 96523

== ENCOUNTER 2024-10-13 17:11 | Inpatient (IN) | payer MEDICARE, SELFPAY ==
--- OUTSIDE RECORDS SUMMARY | 2024-09-17 10:55 | XMS_ITS ---
Author Organization [facility] Address [address] [place] [address] Care Team Providers Care Curator [employer] Name Role Phone Teri Mensah Primary Care Provider [phone] Allergies Allergen (clinical drug ingredient) Drug/Non Drug [...] PHQ9 Encounters Encounter Location Date Provider Diagnosis [facility] 09/17/2024 Terichandu Mccabebaljit GERD (gastroesophageal reflux disease) K21.9 and Acute systolic CHF (congestive heart failure) I50.21 Assessments Encounter Date Diagnosis (ICD Code) Assessment Notes Treatment Notes Treatment Clinical Notes Section Notes 09/17/2024 GERD (gastroesophage al reflux disease) (ICD-10 - K21.9) 09/17/2024 Acute systolic CHF (congestive heart failure) (ICD-10 - I50.21) Plan Of Treatment Next Appt Details Provider Name:Sabine flores, 11/28/2024 10:15:00 AM, [address] [place] [address], [phone], Progress Notes * MOIRAFILEMONENOCH STALLINGS EDOB:1955 (69 yo M)Acc No.[id number]:09/17/2024 Patient: ENOCH LYNNE :1955 A ge:69 Y S ex:Male Address:[address] [place] [phone] Subjective: * Chief Complaints: * C cm [...] 09/26/2024, Notes to Pharmacist: May fill on [id number] Lasix 20 MG Tablet 1 tablet Orally [...]
--- OUTSIDE RECORDS SUMMARY | 2024-09-25 10:00 | XMS_ITS ---
Author Organization [facility] Address [address] [place] [address] Care Team Providers Care Gravel Machine Operator Name Role Phone Teri Mensah Primary Care Provider [phone] Antoinette Frias [phone] REASON FOR VISIT 1 month f/u [id number] Encounters Encounter Location Date Provider Diagnosis [facility] [address] [place] [address] 09/25/2024 Antoinette Frias Plan Of Treatment Next Appt Details Provider Name:Sabine Brenna flores, 11/28/2024 10:15:00 AM, [address] [place], [phone], Progress Notes * ENOCH GIL EDOB:1955 (69 yo M)Acc No.[id number]:09/25/2024 Progress Notes Patient: ENOCH LYNNE Provider: Acosta Frias MD :1955 A ge:69 Y S ex:Male Date:09/25/2024 Address:[address] [place] [address] [address] , [id number] Pcp:Teri Mensah Subjective: * Chief Complaints: * 1 month f/u [id number] Billing Information: * Procedure Codes: Care Plan Details* * Electronic signature of Antoinette Frias MD on 10/13/2024 at 05:20 PM CDT Sign off status: Pending * Provider: Acosta Frias MD Date: 0 09/25/2024 Generated for Stephane resendez/Coy/Eder on: 0 10/13/2024 05:20 PM CDT
[2024-10-13] VITALS (9 sets, daily range): BP systolic 112–141; BP diastolic 80–92; PULSE 88–121; RESP 16–17; TEMP 36.5; O2SAT 96–100; BMI 25.1
--- OUTSIDE RECORDS SUMMARY | 2024-10-13 17:20 | XMS_ITS | Encounter Summary ---
Author Organization [employer] [facility] Address [address] [place] [address] Care Team Providers Care Door To Door Selling Agent Name Role Phone Unavailable Primary Care Provider Unavailabl e Encounter Details Date Type Department Care Team (Latest Contact Info) Description 10/29/2000 Outpatient Historical HIS [facility] Darrick Rick MD [address] [place] [address] Lumbago (Primary Dx); Depressive disorder, not elsewhere classified Social History Tobacco Use Types Packs/Day Years Used Date Smoking Tobacco: Never Assessed Sex and Gender Information Value Date Recorded Sex Assigned at Not on file Legal Sex Male 4: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
--- OUTSIDE RECORDS SUMMARY | 2024-10-13 17:20 | XMS_ITS | Encounter Summary ---
Author Organization [employer] [facility] Address [address] [place] [address] Care Team Providers Care Waiter/Waitress Cocktail Lounge Name Role Phone Unavailable Primary Care Provider Unavailabl e Encounter Details Date Type Department Care Team (Latest Contact Info) Description 06/25/2001 Outpatient Historical HIS [facility] Darrick Rick MD [address] [place] [address] LUMBAGO (Primary Dx); NEURALGIA/NEURITIS NOS; General symptoms NEC; Hip joint replacement Social History Tobacco Use Types Packs/Day Years Used Date Smoking Tobacco: Never Assessed Sex and Gender Information Value Date Recorded Sex Assigned at Not on file 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
--- OUTSIDE RECORDS SUMMARY | 2024-10-13 17:20 | XMS_ITS | Clinical Summary ---
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
--- OUTSIDE RECORDS SUMMARY | 2024-10-13 17:20 | XMS_ITS | Encounter Summary ---
Author Organization [employer] [facility] Address [address] [place] [address] Care Team Providers Care Associate Director Of Sales Name Role Phone Unavailable Primary Care Provider Unavailabl e Encounter Details Date Type Department Care Team (Latest Contact Info) Description 12/24/2000 Outpatient Historical HIS [facility] Darrick Rick MD [address] [place] [address] DEPRESSIVE DISORDER NEC (Primary Dx); LUMBAGO; General symptoms NEC Social History Tobacco Use Types Packs/Day Years Used Date Smoking Tobacco: Never Assessed Sex and Gender Information Value Date Recorded Sex Assigned at Not on file 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
--- OUTSIDE RECORDS SUMMARY | 2024-10-13 17:20 | XMS_ITS | Encounter Summary ---
Author Organization [email or web address] [facility] Address [address] [facility] [place] [address] Care Team Providers Care Shipwright Helper Name Role Phone Unavailable Primary Care Provider Unavailabl e Encounter Details Date Type Department Care Team (Latest Contact Info) Description 09/10/2000 Outpatient Historical HIS [facility] Kojo Villarreal NO ADDRESS ON FILE Lumbago (Primary Dx); Pain in joint, pelvic region and thigh; Spasm of muscle Social History Tobacco Use Types Packs/Day Years Used Date Smoking Tobacco: Never Assessed Sex and Gender Information Value Date Recorded Sex Assigned at Not on file 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
--- OUTSIDE RECORDS SUMMARY | 2024-10-13 17:20 | XMS_ITS | Encounter Summary ---
Author Organization [employer] [facility] Address [address] [place] [address] Care Team Providers Care End Lathe Operator Name Role Phone Unavailable Primary Care Provider Unavailabl e Encounter Details Date Type Department Care Team (Latest Contact Info) Description 11/26/2000 Outpatient Historical HIS [facility] Darrick Rick MD [address] [place] [address] Lumbago (Primary Dx); General symptoms NEC; Depressive disorder, not elsewhere classified Social History Tobacco Use Types Packs/Day Years Used Date Smoking Tobacco: Never Assessed Sex and Gender Information Value Date Recorded Sex Assigned at Not on file 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
--- OUTSIDE RECORDS SUMMARY | 2024-10-13 17:20 | XMS_ITS | Encounter Summary ---
Author Organization [email or web address] [facility] Address [address] [place] [address] Care Team Providers Care Supervisor Abattoir Name Role Phone Unavailable Primary Care Provider Unavailabl e Encounter Details Date Type Department Care Team (Latest Contact Info) Description 09/28/2000 Outpatient Historical HIS [facility] Darrick Rick MD [address] [place] [address] Lumbago (Primary Dx); Myalgia and myositis, unspecified; General symptoms NEC; Depressive disorder, not elsewhere classified Social History Tobacco Use Types Packs/Day Years Used Date Smoking Tobacco: Never Assessed Sex and Gender Information Value Date Recorded Sex Assigned at Not on file Legal Sex Male 4: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
--- OUTSIDE RECORDS SUMMARY | 2024-10-13 17:20 | XMS_ITS | Encounter Summary ---
Author Organization [email or web address] [facility] Address [address] [place] [address] Care Team Providers Care Tribunal Member Name Role Phone Unavailable Primary Care Provider Unavailabl e Encounter Details Date Type Department Care Team (Latest Contact Info) Description 01/21/2001 Outpatient Historical HIS [facility] Darrick Rick MD [address] [place] [address] DEPRESSIVE DISORDER NEC (Primary Dx); General symptoms NEC; LUMBOSACRAL NEURITIS NOS; INSOMNIA NEC Social History Tobacco Use Types Packs/Day Years Used Date Smoking Tobacco: Never Assessed Sex and Gender Information Value Date Recorded Sex Assigned at Not on file 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
--- OUTSIDE RECORDS SUMMARY | 2024-10-13 17:20 | XMS_ITS | Encounter Summary ---
Author Organization [employer] [facility] Address [address] [place] [address] Care Team Providers Care Acetylene Gas Compressor Name Role Phone Unavailable Primary Care Provider Unavailabl e Encounter Details Date Type Department Care Team (Latest Contact Info) Description 04/25/2001 Outpatient Historical [facility] Darrick Rick MD [address] [place] [address] General symptoms NEC (Primary Dx); NEURALGIA/NEURITIS NOS; LUMBAGO; ANXIETY STATE NOS Social History Tobacco Use Types Packs/Day Years Used Date Smoking Tobacco: Never Assessed Sex and Gender Information Value Date Recorded Sex Assigned at Not on file 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
--- OUTSIDE RECORDS SUMMARY | 2024-10-13 17:20 | XMS_ITS | Encounter Summary ---
Author Organization [employer] [facility] Address [address] [place] [address] Care Team Providers Care Weapons System Instrument Mechanic Name Role Phone Unavailable Primary Care Provider Unavailabl e Encounter Details Date Type Department Care Team (Latest Contact Info) Description 05/27/2001 Outpatient Historical [facility] Darrick Rick MD [address] [place] [address] LUMBAGO (Primary Dx); General symptoms NEC; DEPRESSIVE DISORDER NEC Social History Tobacco Use Types Packs/Day Years Used Date Smoking Tobacco: Never Assessed Sex and Gender Information Value Date Recorded Sex Assigned at Not on file 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
--- OUTSIDE RECORDS SUMMARY | 2024-10-13 17:20 | XMS_ITS | Patient Health Record ---
Author Organization 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 Name Role Phone Teri Mensah Primary Care Provider Senthil Camacho Unavailable [phone] Paramjit Jefferson Unavailable [phone] Placido Adams Unavailable [phone] Ashutosh Diane Unavailable [phone] Vivian Leon Unavailable [phone] Paige Ortez Unavailable [phone] Ronit Stroud Unavailable [phone] Sabine Hall Unavailable [phone] Palak Schuster Unavailable [phone] Antoinette Frias Unavailable [phone] Allergies Allergen (clinical drug ingredient) Drug/Non Drug Allergy documented on EMR Reaction Allergy Type Onset Date Status No Known Drug Allergy Unknown Drug Allergy Active Results Component Value Reference Range Flag Notes Prothrombin Time 72894 Reviewed date:04/16/2024 03:44:13 PM Interpretation: Performing Lab: Notes/Report: ProTime 13.5 9.1-11.9 SEC HI Normal Range : 9.1-11.9 INR 1.30 .90-1.20 HI Therapaeutic Range for heart valve replacement: 2.5-3.50 Therapeutic Range: 2.0-3.0 Partial Thromboplastin Time 49598 Reviewed date:04/16/2024 03:44:13 PM Interpretation: Performing Lab: Notes/Report: PTT 26.6 22.6-31.8 SEC Therapeutic Range: 60-100. Critical Value Starting at > 100. Echo Complete [id number] Reviewed date:05/13/2024 10:35:07 AM Interpretation: Performing Lab: Notes/Report: Cardiopulmonary Services Name: ENOCH GIL Study Date: 03/27/2024 : 1955 Patient Location: [facility] Age: 69 yrs Gender: Male HR: 76 [...] Performed By: Gladys Ragland Echo Echo Complete [id number] Reviewed date:05/13/2024 10:35:07 AM Interpretation: Performing Lab: Notes/Report: [id number]&org=iSite Echo Limited [id number] Reviewed date:12/10/2023 12:36:40 PM Interpretation: Performing Lab: Notes/Report: mvu=[id number]&org=iSite Echo Limited [id number] Reviewed date:11/06/2023 08:44:59 AM Interpretation: Performing Lab: Notes/Report: Echo Limited [id number] Reviewed date:03/10/2024 10:35:19 AM Interpretation: Performing Lab: Notes/Report: Echo Limited [id number] Reviewed date:12/10/2023 12:36:40 PM Interpretation: Performing Lab: Notes/Report: Cardiopulmonary Services Name: ENOCH GIL Study Date: 11/08/2023 : 1955 Patient Location: [facility] Age: 68 yrs Gender: Male Height: 71 [...] Diane Performed By: Leonard Voss NM Lexiscan Cardiolite-[id number] Reviewed date:12/10/2023 12:32:17 PM Interpretation: Performing Lab: Notes/Report: See Below For Report NM Lexiscan Cardiolite Read See Below For Report NM Lexiscan Cardiolite-[id number] Reviewed date:12/10/2023 12:32:17 PM Interpretation: Performing Lab: Notes/Report: auv=[id number]&org=iSite NM Lexiscan Cardiolite-[id number] Reviewed date:11/28/2023 09:59:04 AM Interpretation: Performing Lab: Notes/Report: Electrocardiogram (EKG) - 93 000 Reviewed date:12/14/2023 11:23:35 AM Interpretation: Performing Lab: Notes/Report: Holter 7 day-[id number] Reviewed date:03/27/2024 02:41:17 PM Interpretation: Performing Lab: Notes/Report: Holter 7 day-[id number] Reviewed date:03/27/2024 02:41:17 PM Interpretation: Performing Lab: Notes/Report: Holter 7 day-[id number] Reviewed date:03/27/2024 02:41:17 PM Interpretation: Performing Lab: [...] date:04/16/2024 03:44:20 PM Interpretation: Performing Lab: Notes/Report: upp=[id number]&org=iSite IPMA Saliva Drug Screen Reviewed date:09/09/2024 03:42:24 [...] Referring Provider Speciality Hematology /Oncology Referred Organization [facility] Referred Provider Senthil Camacho Referred Address [address] [place] [address] [address],[place],[address], Referred Provider Specialty Pulmonary Di seases General Notes Tiffany Ann 04/01 11:57:37 AM >Scheduled 04/08/2024 @ 10:30 AM Referral Priority Stat Reason Esophageal and lung cancer Former patient at [facility] in [facility] ([facility]] Home Diagnosis 1 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) Diagnosis 2 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) Referral Organization [facility] Referring Provider First Name Teri Referring Provider Last Name Makenna Referring Provider Speciality Nurse Betina lam Referred Provider Specialty Oncology Referral Priority Routine Medications Medication SIG (Take, Route, Frequency, Duration) Notes Start Date End Date Status Furosemide 20 MG Tablet Oral; Duration: 30 Days Active Potassium Chloride Sharmin ER 10 MEQ Tablet Extended Release Oral; Duration: 30 Days Active Prochlorperazine Maleate 10 MG Tablet Oral; Duration: 5 Days Activ e Pantoprazole Sodium 40 MG Tablet Delayed Release Oral; Duration: 30 Days Active Lasix 20 MG Tablet 1 tablet Orally Once a day; Duration: 30 days 08/21/2024 12/18/2024 Active Potassium Chloride Sharmin ER 10 MEQ Tablet Extended Release 1 tablet with food Orally Twice a day; Duration: 30 days 08/21/2024 12/18/2024 Active Bisoprolol Fumarate 5 MG Tablet 1 tablet Orally once at night; Duration: 30 days 08/21/2024 Active Gabapentin 100 MG Capsule Oral; Duration : 10 Days Active OLANZapine 5 MG Tablet Oral; Duration: 5 Days Active Ondansetron 4 MG Tablet Disintegrating Oral; Duration: 8 Days Act curtis oxyCODONE HCl 15 MG Tablet Oral; Duratio n: 30 Days Active Immunizations Vaccine Route Administration Date Status Comme nts COVID-19 Vaccine (Moderna) Dose #2 Unknown 07/16/2020 Administered Fluarix Quadrivalent Unknown 11/03/2019 Administered Flucelvax Quadrivalent Pres Free IM Intramuscular 12/28/2021 Administered [id number] Flucelvax Trivalent, Syringe 0.5 mL, PF Unknown 12/19/2023 Refused Prevnar 20 IM Intramuscular 12/28/2021 Administered nd-00 [id number]- 10 COVID-19 Vaccine (Moderna) Dose #2 [...] dariel? Other Have you served in the [employer]? ([employer]) No Drug/Alcohol: Social Info Question Answer Notes AUDIT-C (Standard) Did you have a drink containing alcohol in the past year? No Points 0 Interpretation Negative Tobacco Use: Social Info Question Answer Notes Tobacco Control (Standard) Tobacco use: Nonsmoker Additional Details Category Social Info Options Details Drugs/Alcohol: Do you smoke marijuana? De nies Section Notes: 10/06/20 02-20-22 PHQ9 06/18/24 PHQ9 10/06/20 10/06/20 02-20-22 PHQ9 10/06/20 02-20-22 PHQ9 09/13/22 PHQ9 01/01/23 PHQ9 06/18/24 PHQ9 06/18/24 PHQ9 06/18/24 PHQ9 06/18/24 PHQ9 06/18/24 PHQ9 10/06/20 02-20-22 PHQ9 10/06/20 06/18/24 PHQ9 06/18/24 PHQ9 10/06/20 02-20-22 PHQ9 06/18/24 PHQ9 Problems Problem Type SNOMED Code ICD Code Onset Dates Problem Status W/U Status Risk Notes Problem Malignant neoplasm of lower third of esophagus (204788065) Malignant neoplasm of lower third of esophagus (C15.5) Active confirmed Problem Chronic pain (85960089) Other chronic pain (G89.29) Active confirmed Problem Chronic pain syndrome (191760319) Chronic pain syndrome (G89.4) Active confirmed Problem Hypertensive heart failure (70642645) Hypertensive heart disease with heart failure (I11.0) Active confirmed Problem Chronic systolic heart failure (509122302) Chronic systolic (congestive) heart failure (I50.22) Active confirmed Problem Stricture of esophagus (59862692) Esophageal obstruction (K22.2) Active confirmed Problem Rodriguez's esophagus (130580364) 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 Problem Solitary pulmonary nodule (284445520) Solitary pulmonary nodule (R91.1) Active confirmed Problem History of malignant neoplasm of esophagus (221283401) Personal history of malignant neoplasm of esophagus (Z85.01) Active confirmed Problem Imaging result abnormal (069541022) Abnormal findings on diagnostic imaging of other specified body structures (R93.89) Active confirmed Problem Chronic pain syndrome (423870736) Chronic pain disorder (G89.4) Active confirmed Problem Microcytic hypochromic anemia (12856404) Microcytic hypochromic anemia (D50.9) Active confirmed Problem Obesity (955359090) Obesity (BMI 30-39.9) (E66.9) Active confirmed Problem Dysphagia (49116069) Dysphagia, unspecified type (R13.10) Active confirmed Problem Cardiomyopathy (41220669) Cardiomyopathy, unspecified type (I42.9) Active confirmed Problem Weight loss (044703474) Weight loss (R63.4) Active confirmed Problem Dyspnea (152443401) SOB (shortne ss of breath) on exertion (R06.02) Active confirmed Problem Cancer (722161590) Cancer (C80.1) Active confir med Problem Congestive heart failure (59235598) CHF (congestive heart failure) (I50.9) Active confirmed Problem Depression (667146820) Depression (F32.9) Active confirmed Problem Dysphagia (33014766) Dysphagia (R13.10) Active confirmed Problem Esophageal stricture (87729372) Esophageal stricture (K22.2) Active confirmed Problem Rodriguez's esophagus (977733016) Rodriguez''s esophagus without dysplasia (K22.70) Active confirmed Problem Gastroesophageal reflux disease (907759115) GERD (gastroesophageal reflux disease) (K21.9) Active confirmed Problem Esophageal dysphagia (81577625) Esophageal dysphagia (R13.10) Active confirmed Problem PEG (percutaneou s endoscopic gastrostomy) adjustment/replace ment/removal (Z43.1) Active confirmed Problem Malignant tumor of esophagus (382060836) Malignant neoplasm of esophagus, unspecified location (C15.9) Active confirmed Problem Stricture of esophagus (95895813) Esophageal stenosis (K22.2) Active confirmed Problem History of malignant neoplasm of esophagus (268999754) History of esophageal cancer (Z85.01) Active confirmed Problem Malignant tumor of esophagus (137106033) Esophageal carcinoma (C15.9) Active confirmed Problem Abnormal gastrointestinal PET scan (R94.8) Active confirmed Problem Ulcerative esophagitis (821796728) Ulcerative esophagitis (K22.10) Active confirmed Problem Gastric ulcer without hemorrhage, without perforation AND without obstruction (16030658) Gastric ulcer, unspecified chronicity, unspecified whether gastric ulcer hemorrhage or perforation present (K25.9) Active confirmed Problem Gastrostomy present (944886925) Feeding by G-tube (Z93.1) Active confirmed Problem Acute systolic heart failure (091128238) Acute systolic CHF (congestive heart failure) (I50.21) Active confirmed Problem Gastroesophageal reflux disease with esophagitis (disorder) (815229027) Gastro-esophageal reflux disease with esophagitis, without bleeding (K21.00) Active confirmed Problem History of radiation exposure (565630331) H/O therapeutic radiation (Z92.3) Active confirmed Problem Malignant neoplasm of lower third of esophagus (993797044) Malignant neoplasm of distal third of esophagus (C15.5) Active confirmed Problem Secondary malignant neoplasm of lung (99223761) 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) Active confirmed Problem Lung cancer (670342234) Lung cancer (C34.90) Active confirmed Problem Esophageal mass (439330333) Esophageal mass (K22.89) Active confirmed Problem Mitral valve disorder (63587185) Acute mitral insufficiency (I34.0) Active confirmed Vital Signs Heart Rate 86 /min 10/01/2024 Temperature 98.2 degrees Fahrenheit 10/01/2024 Respiratory Rate 20 /min 10/01/2024 Blood pressure diastolic 62 mm Hg 10/01/2024 Oximetry 99 % 10/01/2024 Height-cm 180.34 cm 10/01/2024 Weight-kg 85.73 kg 10/01/2024 Height 71 in 10/01/2024 Blood pressure systolic 110 mm Hg 10/01/2024 Weight 189 lbs 10/01/2024 BMI 26.36 kg/m2 10/01/2024 Encounters Encounter Location Date Provider Diagnosis [facility] [address] [place] [address] 10/31/2023 Placido Adams Dysphagia, unspecified type R13.10 ; GERD (gastroesophageal reflux disease) K21.9 ; 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 and History of esophageal cancer Z85.01 [facility] [address] [place] [address], [place] [address] 11/08/2023 [facility] [address] [place] [address], [place] [address] 12/06/2023 [facility] [address] [place] [address], [place] [address] 03/27/2024 [facility] [address] [place] [address] 06/12/2024 Paramjit Jefferson [facility] [address] [place] [address], [place] [address] 10/19/2023 Sabine Hall Acute systolic CHF (congestive heart failure) I50.21 ; Tachycardia R00.0 ; Elevated troponin R74.8 ; Dyspnea R06.00 and Lung cancer C34.90 [facility] [address] [place] [address], [place] [address] 11/08/2023 Vivian Leon Shortness of breath R06.02 ; Cardiomyopathy, unspecified type I42.9 ; Tachycardia R00.0 ; GERD (gastroesophageal reflux disease) K21.9 ; 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 ; History of esophageal cancer Z85.01 ; Dyspnea R06.00 and Lung cancer C34.90 [facility] [address] [place] [address] 12/14/2023 Ashutosh Dodgedayan GERD (gastroesophage al reflux disease) K21.9 ; Lightheaded R42 ; Acute systolic CHF (congestive heart failure) I50.21 ; Esophageal mass K22.89 ; Blurry vision H53.8 ; Other fatigue R53.83 ; Abnormal stress test R94.39 ; History of esophageal cancer Z85.01 ; Other hypotension I95.89 ; Sinus tachycardia R00.0 and Abnormal EKG R94.31 [facility] [address] [place] [address] 12/18/2023 Teri Mensah 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 and Acute systolic CHF (congestive heart failure) I50.21 [facility] [address] [address] 12/19/2023 Teri Makenna Cervical strain S16.1XXA ; Encounter for immunization Z23 and Immunization not carried out because of patient refusal Z28.[address] [place] [address] 01/02/2024 Ashutosh Dodgedayan GERD (gastroesophage al reflux disease) K21.9 ; Dizziness R42 ; Acute systolic CHF (congestive heart failure) I50.21 ; Cardiomyopathy, unspecified type I42.9 ; 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 ; SOB (shortness of breath) on exertion R06.02 ; History of esophageal cancer Z85.01 ; H/O therapeutic radiation Z92.3 ; Lung cancer C34.90 and Other hypotension I95.89 [facility] [address] [place] [address] 03/13/2024 Paramjit Jefferson Dysphagia, unspecifi ed type R13.10 ; Ulcerative esophagitis K22.10 ; Esophageal stricture K22.2 and History of esophageal cancer Z85.01 [facility] [address] [place] [address] 03/27/2024 Sabine Hall SOB (shortness of breath) on exertion R06.02 ; Palpitations R00.2 ; GERD (gastroesophageal reflux disease) K21.9 ; Lung cancer C34.90 ; Tachycardia R00.0 ; Sinus tachycardia R00.0 and Other hypotension I95.89 [facility] [address] [place] [address] [address] [place] [address] 04/08/2024 Senthil Camacho Shortness of breath R06.02 and Solitary pulmonary nodule R91.1 [facility] [address] [place] [address] 04/10/2024 Ashutosh Diane SOB (shortness of breath) on exertion R06.02 [facility] [address] [facility] [place] [address] 05/22/2024 Paramjit Jefferson History of esophagea l cancer Z85.01 ; Dysphagia R13.10 and Esophageal stricture K22.2 [facility] [address] [place] [address] 06/18/2024 Teri Mensah 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 ; Secondary malignant melanoma of right lung C78.01 ; Hypertensive heart disease with heart failure I11.0 ; CHF (congestive heart failure) I50.9 and Depression screen Z13.31 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 [address] [place] [address] 08/27/2024 Antoinette Altagracia Cancer C80.1 ; Chron ic pain disorder G89.4 ; L-S radiculopathy M54.17 and FDC (current) use of opiate analgesic Z79.891 [facility] [address] [place] [address] 10/01/2024 [facility] discharge follow-up Z09 and GERD (gastroesophageal reflux disease) K21.9 [facility] [address] [place] [address] 03/19/2024 Teri [facility] [place] 09/17/2024 Teri Mensah GERD (gastroesophageal reflux disease) K21.9 and Acute systolic CHF (congestive heart failure) I50.21 [facility] [place] 10/22/2023 [facility] Dysphagia, unspecified type R13.10 and Acute systolic CHF (congestive heart failure) I50.21 [facility] [address] [place] [address] 10/22/2023 Ronit Stroud [facility] [address] [place] [address] 10/30/2023 Paige Ortez [facility] [address] [place] [address] 11/02/2023 Palak Schuster [facility] [address] [place] [address] 11/06/2023 Ashutosh Diane Acute systolic CHF (congestive heart failure) I50.21 ; Tachycardia R00.0 and Shortness of breath R06.02 [facility] [address] [place] [address] 11/07/2023 Ronit Stroud [facility] [address] [place] [address] 11/12/2023 Ashutosh Diane [facility] [address] [place] [address] 11/12/2023 Ashutosh Diane [facility] [place] 11/15/2023 Terichandu Mccabebaljit 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 and Cardiomyopathy, unspecified type I42.9 [facility] [address] [place] [address] 11/16/2023 Ashutosh Diane [facility] [address] [place] [address], [place] [address] 11/19/2023 Ashutosh Diane [facility] [address] [place] [address] 11/23/2023 Ashutosh Diane [facility] [address] [place] [address] 12/11/2023 Ashutosh Diane [facility] [address] [place] [address] 12/17/2023 Ashutosh [facility] [address] [place] [address], [place] [address] 12/18/2023 Teri Mensah [facility] [address] [place] [address] 12/18/2023 Ashutosh Diane [facility] [address] [place] [address] 12/18/2023 Teri Mensah GERD (gastroesophageal reflux disease) K21.9 and Other chronic pain G89.29 [facility] [address] [place] [address], [place] [address] 12/31/2023 Ashutosh Diane [facility] [address] [place] [address] 01/15/2024 Teri Mensah Lung cancer C34.90 and Other chronic pain G89.29 [facility] [address] [place] [address] 01/18/2024 Paramjit Jefferson [facility] [address] [place] [address], [place] [address] 02/11/2024 Ashutosh Diane [facility] [address] [place] [address], [place] [address] 02/11/2024 Ashutosh Diane [facility] [address] [place] [address] 02/19/2024 Paramjit Jefferson [facility] [place] 02/20/2024 Teri Mensah Dysphagia R13.10 and 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 [facility] [place] 03/21/2024 Teri Mensah GERD (gastroesophageal reflux disease) K21.9 and Esophageal stenosis K22.2 [facility] [address] [place] [address] 03/25/2024 Paramjit Jefferson [facility] [address] [place] [address] 04/01/2024 Ashutosh Diane [facility] [address] [place] [address] [place] [address] 04/16/2024 Senthil Camacho [facility] [place] 04/17/2024 Tericheyenne Mensah SOB (shortness of breath) on exertion R06.02 and 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 [facility] [address] [place] [address] 04/22/2024 Ashutosh Diane [facility] [address] [place] [address] 04/25/2024 Paramjit Jefferson [facility] [address] [place] [address] [place] [address] 04/28/2024 Senthil Camacho [facility] [address] [place] [address] 05/08/2024 Aboduanibal Adams [facility] [place] 05/19/2024 Teri Mensah 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 and Solitary pulmonary nodule R91.1 [facility] [address] [place] [address] 05/22/2024 Paramjit Jefferson [facility] [address] [place] [address] 06/16/2024 Paramjit Jefferson Dysphagia, unspecifi ed type R13.10 ; Dysphagia R13.10 and Abnormal gastrointestinal PET scan R94.8 [facility] [place] 06/16/2024 Tericheyenne Mensah GERD (gastroesophageal reflux disease) K21.9 and Esophageal mass K22.89 [facility] [place] 07/17/2024 Terichandu Mensah 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 and GERD (gastroesophageal reflux disease) K21.9 [facility] [address] [facility] [place] [address] 08/14/2024 Antoinette Altagracia Cancer C80.1 [facility] [place] 08/18/2024 Teri Mensah Esophageal carcinoma C15.9 and 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 [facility] [address] [place] [address] 09/30/2024 Teri Mensah Assessments Encounter Date Diagnosis (ICD Code) Assessment [...] try different complete supplements that are available [id number] er to see which 1 he tolerates best [...] try different complete supplements that are available [id number]-mri-[id number] er to see which 1 he tolerates best [...] GERD (gastroesophageal reflux disease) (ICD-10 - K21.9) 10/01/2024 Hospital discharge follow-up (ICD-10 - Z09) 10/01/2024 GERD (gastroesophageal reflux disease) (ICD-10 - K21.9) Doing well today, stable, continue patoprazole daily and Tums as needed. Recheck in 3 months. Questions asked and answered; discharged to home. 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 Riley. 08/21/2024 Esophageal carcinoma (ICD-10 - C15.9) He will establish with oncology in [place]. 08/13/2024 Chronic pain syndrome (ICD-10 - G89.4) [...] to advanced maligancy, I would not recommend [facility] at this time. 11/08/2023 Dyspnea [...] sinus tachycardia with diffuse ST elevations and VT depressions. ST elevations and VT depressions are new when compared to prior [...] 6 months, or sooner if needed. Sahara Shane am scribing for Ashutosh Diane MD.Ashutosh Shane MD, personally performed the services prescribed in this documentatio n, as scribed by Sahara Berumen, and it is both accurate and complete. 01/02/2024 Other Follow up in 3 months with limited echo. Sahara Shane am scribing for Ashutosh Diane MD.Ashutosh Shane MD, personally performed the services prescribed in this documentatio n, as scribed by Sahara Berumen, and it is both accurate and complete. 03/27/2024 Other Follow up with Dr. Diane in 4-6 months, or sooner if needed. Sahara Shane am scribing for Sabine Hall APN.Sabine Shane APN, personally performed the services prescribed in this documentatio n, as scribed by Sahara Berumen, and it is both accurate and complete. 04/08/2024 Other Zoila Shane am scribing for, and in the presence of Dr. Senthil Camacho. Dr. Senthil Shane, personally performed the services described in this documentatio n, as scribed by Zoila Cordova in my [...] Routine and random urine drug screenings. 9. [id number]-[id number] followup on any patient taking prescribed opioids [...] personally performed the services prescribed in this documentatio n, as scribed by Sahara Berumen, and it is both accurate and complete. Plan Of Treatment Pending Test Test Name Order Date Chest PA/Lat-[id number] 07/24/2022 Chest PA/Lat-53652 09/07/2023 Chest PA/Lat-[id number] 09/07/2023 Fluoro Guided Vascular Access-[id number] 08/14 Fluoro Guided Vascular Access-[id number] 08/14 zzzPET Skullbase To Mid Thigh-12377 04/13 Electrocardiogram 12 Lead Tracing-[id number] 09/07/2023 US Surgery Unlisted 09/12/2023 US Surgery Unlisted 09/12/2023 EGD, Upper GI Diagnostic-[id number] 5 Esoph Endoscopy, Dilation-10814 05/23/19 25 EGD, Upper GI Diagnostic-[id number] 5 Future Test Test Name Order Date EGD, Upper GI Diagnostic-[id number] 5 Next Appt Details Provider Name:Sabine Brenna flores, 11/28/2024 10:15:00 AM, [address] [place] [address], [id number], Insurance Providers Payer Name Payer Address Payer Phone Subscriber Number Group Number Insured Name Patient Relationship to Insured Coverage Start Date Coverage End Date [employer] Medicare Replacement [address] [address] [place] [address] [id number] ENOCH GIL Self - patient is the insured Medications Administered Medication Instructions Date of Administration Dosage Notes Ketorolac Tromethamine 07/15/2021 60 mg Rocephin 07/24/2022 1 g [facility] [phone] pt tolerated well/instructed to wait 20 [...] lung EGD Chronic ulcerated esophagitis/no ble ed/dilation/7cm 10-31-2023 Chemo/radiation EGD-4 cm hiatal hernia, esophageal steno sis-dilated 05-01-2024 colonoscopy 2015 Hospitalization History Reason Date(Month/Year) Neck pain and spasms 12/12/23 Acute on chronic systolic heart failure 8.8.24 see surgery list
--- OUTSIDE RECORDS SUMMARY | 2024-10-13 17:20 | XMS_ITS | Encounter Summary ---
Author Organization [employer] [facility] Address [address] [place] [address] Care Team Providers Care Toe Laster Name Role Phone Unavailable Primary Care Provider Unavailabl e Encounter Details Date Type Department Care Team (Latest Contact Info) Description 02/22/2001 Outpatient Historical HIS [facility] Darrick Rick MD [address] [place] [address] LUMBAGO (Primary Dx); General symptoms NEC; DEPRESSIVE DISORDER NEC Social History Tobacco Use Types Packs/Day Years Used Date Smoking Tobacco: Never Assessed Sex and Gender Information Value Date Recorded Sex Assigned at Not on file 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
--- OUTSIDE RECORDS SUMMARY | 2024-10-13 17:20 | XMS_ITS | Encounter Summary ---
Author Organization [employer] [facility] Address [address] [place] [address] Care Team Providers Care Research Assistant Member Name Role Phone Unavailable Primary Care Provider Unavailabl e Encounter Details Date Type Department Care Team (Latest Contact Info) Description 08/27/2000 Outpatient Historical HIS [facility] Kojo Villarreal NO ADDRESS ON FILE Lumbago (Primary Dx); Pain in joint, pelvic region and thigh Social History Tobacco Use Types Packs/Day Years Used Date Smoking Tobacco: Never Assessed Sex and Gender Information Value Date Recorded Sex Assigned at Not on file 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
--- OUTSIDE RECORDS SUMMARY | 2024-10-13 17:20 | XMS_ITS | Encounter Summary ---
Author Organization [employer] [facility] Address [address] [place] [address] Care Team Providers Care Yeast Culture Operator Name Role Phone Unavailable Primary Care Provider Unavailabl e Encounter Details Date Type Department Care Team (Latest Contact Info) Description 03/25/2001 Outpatient Historical HIS [facility] Darrick Rick MD [address] [place] [address] LUMBAGO (Primary Dx); General symptoms NEC; INSOMNIA NEC; DEPRESSIVE DISORDER NEC Social History Tobacco Use Types Packs/Day Years Used Date Smoking Tobacco: Never Assessed Sex and Gender Information Value Date Recorded Sex Assigned at Not on file 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
--- NOTE | 2024-10-13 17:35 | W.ED.HA ---
Documented by User: MING Mckeon 10/13/24 19:30 HPI - Headache General: Chief Complaint: Headache Stated Complaint: pain in eyebrow Time Seen by Provider: 10/13/24 17:18 History of Present Illness: Patient is a 69-year-old gentleman with metastatic esophageal cancer, HER2 positive, presents to ED with headache x 1 day. Patient describes it as a pain in his left eye, that is a sharp stabbing pain. He does admit to decreased oral intake, however believed he was well-hydrated today. He does admit to increasing shortness of breath with ambulation or standing due to 2 bad heart valves. On echocardiogram review, patient has 60% EF, no valvular abnormality is noted on 07/2024. Patient states his shortness of breath is chronic. His new findings are his weakness, fever today, and he is lightheaded and dizzy upon standing, and association of his headache with the left restorationist pain, left ocular pain. noted fever at home of 101 ?F, and gave Tylenol. This is now 97.7 ?F in triage. Patient received on 10/08/24: cycle 3 FOLFIRI trastuzumab chemotherapy, for his ongoing treatment of esophageal cancer. Upon standing patient his blood pressure was 93/75. He was dizzy, and became tachycardic with heart rate of 130, sinus tach on monitor. Associated symptoms: Deny chest pain, fever(s), nausea, rash or vomiting Related Data Home Medications ?Medication ?Instructions ?Recorded ?Confirmed bisoprolol fumarate 5 mg tablet 5 mg PO DAILY 12/12/23 10/08/24 lisinopril 2.5 mg tablet 25 mg PO DAILY 12/12/23 10/08/24 pantoprazole 40 mg tablet,delayed 40 mg PO BID 12/12/23 10/08/24 release furosemide 20 mg tablet (Lasix) 20 mg PO DAILY 09/02/24 10/08/24 potassium 75 mg tablet mg PO DAILY 09/02/24 10/08/24 oxycodone 30 mg tablet mg PO 10/08/24 10/08/24 Previous Rx's ?Medication ?Instructions ?Recorded cyclobenzaprine 5 mg tablet 5 mg PO TID PRN muscle spasm #14 12/12/23 tabs meloxicam 7.5 mg tablet 7.5 mg PO .Twice daily #14 tabs 12/12/23 prochlorperazine maleate 10 mg 10 mg PO Q4H PRN mild nausea #30 08/19/24 tablet (Compazine) tabs diphenoxylate-atropine 2.5 10 ml PO Q6H PRN diarrhea #60 mL 09/02/24 mg-0.025 mg/5 mL oral liquid ondansetron 4 mg disintegrating 4 mg translingual Q6H PRN nausea 09/02/24 tablet and vomiting #30 tabs olanzapine 5 mg tablet 5 mg PO DAILY 5 days #5 tabs 09/09/24 gabapentin 100 mg capsule 100 mg PO TID #30 caps 09/24/24 magnesium oxide 400 mg PO BID #40 tabs 10/09/24 Allergies Allergy/AdvReac Type Severity Reaction Status Date / Time No Known Allergies Allergy Verified 10/08/24 09:24 Review of Systems General: Reports: 10 or more systems reviewed and unremarkable except in HPI and below Const: Denies: fever(s) or chills Eyes: Reports: photophobia and eye discomfort (left); Denies: change in vision, blurry vision, blind spots or eye discharge ENMT: Denies: throat pain or uvular edema Card: Denies: chest pain or palpitations Resp: Denies: dyspnea or non-productive cough GI: Denies: abdominal pain, nausea or vomiting : Denies: flank pain or difficulty urinating Musc: Denies: neck pain, back pain, extremity pain, extremity swelling, joint pain or joint swelling Skin/Breast: Denies: rash or pruritus Neuro: Reports: headache(s) and dizziness (upon standing); Denies: numbness in extremities, weakness in extremities, sensory changes, lack of coordination or difficulty walking PFSH ED PFSH: Medical History (Updated 10/13/24 @ 19:22 by MING Mckeon) Fibromyalgia Rodriguez esophagus Ch mgr wo dorothy w ntr w st Spasmodic torticollis Chronic depression Surgical History History of cholecystectomy History of eye surgery Family History Father Hypertension Crohn's disease Mother Cancer Social History Smoking and tobacco/nicotine status: never used tobacco/nicotine Physical Exam Const: COMMON NORMALS: patient oriented x3 and alert ORIENTATION/CONSCIOUSNESS: Yes oriented to person, Yes oriented to place and Yes oriented to time HENMT: THROAT: no uvular edema Eye: COMMON NORMALS: Equal, round and reactive pupils present, EOMs intact bilaterally, conjunctivae normal and no scleral icterus CONJUNCTIVA: Yes conjunctivae normal PUPIL: Yes Equal, round and reactive pupils present Neck/C-Spine: COMMON NORMALS: full ROM, no lymphadenopathy and supple Chest: COMMONS NORMALS: normal inspection of the chest and normal palpation of entire chest wall Resp: COMMON NORMALS: normal respiratory effort, No retractions and clear to auscultation bilaterally AUSCULTATION: clear to auscultation bilaterally Cardio: COMMON NORMALS: regular rate and regular rhythm RATE: regular rate RHYTHM: regular rhythm GI: COMMON NORMALS: Normal to inspection, nondistended, normoactive bowel sounds present, Soft to palpation and non-tender PALPATION: Yes Soft to palpation : COMMON NORMALS: Yes no CVA tenderness BLADDER/KIDNEY EXAM: Yes no CVA tenderness Back/Pelvis: COMMON NORMALS: no CVA tenderness Extremity: COMMON NORMALS: normal to inspection, full ROM and capillary refill normal Neuro: COMMON NORMALS: patient oriented x3 and CN's II-XII intact bilaterally SENSORIUM/ORIENTATION: Yes alert, Yes oriented to person, Yes oriented to place and Yes oriented to time SPEECH: speech normal GAIT: Yes Normal gait present MOTOR EXAM: 5/5 motor strength present throughout Psych: COMMON NORMALS: mental status grossly normal and Normal thought process present THOUGHT PROCESS: Normal thought process present Course Reevaluation(s): Reevaluation #1: Patient states he does feel slightly better with IV fluids and IV dexamethasone Consultations: Consultation #1: Discussed with hospitalist Dr. Ritchie, accepted admission Vital Signs: Vital signs: Vital Signs Temperature 97.7 F 10/13/24 17:17 Pulse Rate 101 H 10/13/24 17:17 Respiratory Rate 16 10/13/24 17:17 Blood Pressure 112/83 10/13/24 17:17 Pulse Oximetry 100 10/13/24 17:17 Oxygen Delivery Me thod Room Air 10/13/24 17:17 MDM - Headache Medical Decision Making Patient is a 69-year-old male with HER2 positive metastatic esophageal cancer with last treatment 10/08, cycle 3 FOLFIRI trastuzumab chemotherapy, presents to the ED with notable temperature 101 ?F taken at 1500 today, for which patient had Tylenol after. He presented to the ED without fever at 97.7. He is neutropenic, with neutrophil 0.5, WBC 1.5, however platelets are preserved at 195, with patient noting he did receive a 10 pack of FFP's and PRBC last week. Hemoglobin is stable at 10.7. Unfortunately, lactic acid is increased at 2.5, and reflex has not yet been obtained. Patient possibly has sepsis, and has received 2 L IV fluid bolus. Magnesium that is low at 1.5, is being replaced with 4 g. Will further discuss with hospitalist on-call for admission for neutropenic fever. Urine analysis is pending. Urine analysis is benign. Additional differentials considered is temporal arteritis given the location of his pain, which will be deferred to hospitalist/any concern for consultation of surgeon. Discussed with the hospitalist on-call, she has accepted admission Medical Records I reviewed the patient's medical records. Lab Data I reviewed the patient's lab results. 10/13/24 18:01 10/13/24 18:01 Laboratory Results WBC 1.26 10^3/uL (3.29-11.43) L 10/13/24 18: RBC 3.73 10^6/uL (3.85-5.65) L 10/13/24 18: Hgb 10.70 g/dL (11.27-16.99) L 10/13/24 18: Hct 31.7 % (37-53) L 10/13/24 18: MCV 85.0 fl (82-101) 10/13/24 18: MCH 28.7 pg (27-33) 10/13/24 18: MCHC 33.8 g/dL (30-55) 10/13/24 18: RDW 14.2 % (12.1-15.1) 10/13/24 18: Plt Count 195 10^3/cmm (157-399) 10/13/24 18: MPV 9.2 fL (7.4-10.4) 10/13/24 18: Neut % (Auto) 41.3 % 10/13/24 18:01 Lymph % (Auto) 44.4 % 10/13/24 18:01 Meigs % (Auto) 7.1 % 10/13/24 18:01 Eos % (Auto) 4.0 % 10/13/24 18:01 Baso % (Auto) 1.6 % 10/13/24 18:01 Neut # (Auto) 0.52 10^3/uL (1.8-7.7) L* 10/13/24 18: Lymph # (Auto) 0.6 10^3/uL (0.8-4.8) L 10/13/24 18: Meigs # (Auto) 0.1 10^3/uL (0.2-0.9) L 10/13/24 18: Eos # (Auto) 0.1 10^3/uL (0.0-0.8) 10/13/24 18: Baso # (Auto) 0.0 10^3/uL (0.0-0.1) 10/13/24 18: Nucleated RBC % (auto) 0 % 10/13/24 18: Nucleated RBCs # 0.0 /100WBC 10/13/24 18:01 Sodium 136 mmol/L (136-145) 10/13/24 18: Potassium 3.9 mmol/L (3.5-5.1) 10/13/24 18: Chloride 99 mmol/L (98-107) 10/13/24 18: Carbon Dioxide 25 mmol/L (22-29) 10/13/24 18: Anion Gap 15.9 (5-19) 10/13/24 18: BUN 24 mg/dL (8-23) H 10/13/24 18:01 Creatinine 0.7 mg/dL (0.7-1.2) 10/13/24 18: GFR Calculation 111.8 mL/min (90-130) 10/13/24 18: Glucose 120 mg/dL (65-115) H 10/13/24 18:01 Calculated Osmolality 287 mOsm/kg (285-295) 10/13/24 18: Lactic Acid 2.5 mmol/L (0.5-2.2) H 10/13/24 18: Calcium 10.1 mg/dL (8.5-10.5) 10/13/24 18:01 Magnesium 1.5 mg/dL (1.7-2.3) L 10/13/24 18:01 Total Bilirubin 0.5 mg/dL (0.15-1.2) 10/13/24 18:01 AST 19 U/L (0-40) 10/13/24 18:01 ALT 22 U/L (0-41) 10/13/24 18:01 Alkaline Phosphatase 175 U/L (40-130) H 10/13/24 18:01 Total Protein 6.7 g/dL (6.6-8.7) 10/13/24 18:01 Albumin 3.6 g/dL (3.5-5.2) 10/13/24 18:01 Globulin 3.1 g/dL (1.3-4.6) 10/13/24 18:01 Influenza A (PCR) Negative (Negative) 10/13/24 18:01 Influenza Type B (PCR) Negative (Negative) 10/13/24 18:01 RSV (PCR) Negative (Negative) 10/13/24 18:01 SARS-CoV-2 (PCR) Negative (Negative) 10/13/24 18:01 All radiology interpretation(s) finalized by discharge Discharge Plan Discharge Patient Disposition: Admitted As Inpatient Clinical Impression: Neutropenic fever, Hypomagnesemia Condition: Stable Discharge Diet: Usual diet Discharge Activity: Resume usual activity Coding Level of Care Code ED Knockout Worker for [facility] Fwd Documented by User: Jason Ernandez DO 10/13/24 19:31 HPI - Headache General: Chief Complaint: Headache Stated Complaint: pain in eyebrow Time Seen by Provider: 10/13/24 17:18 Related Data Home Medications ?Medication ?Instructions ?Recorded ?Confirmed bisoprolol fumarate 5 mg tablet 5 mg PO DAILY 12/12/23 10/08/24 lisinopril 2.5 mg tablet 25 mg PO DAILY 12/12/23 10/08/24 pantoprazole 40 mg tablet,delayed 40 mg PO BID 12/12/23 10/08/24 release furosemide 20 mg tablet (Lasix) 20 mg PO DAILY 09/02/24 10/08/24 potassium 75 mg tablet mg PO DAILY 09/02/24 10/08/24 oxycodone 30 mg tablet mg PO 10/08/24 10/08/24 Previous Rx's ?Medication ?Instructions ?Recorded cyclobenzaprine 5 mg tablet 5 mg PO TID PRN muscle spasm #14 12/12/23 tabs meloxicam 7.5 mg tablet 7.5 mg PO .Twice daily #14 tabs 12/12/23 prochlorperazine maleate 10 mg 10 mg PO Q4H PRN mild nausea #30 08/19/24 tablet (Compazine) tabs diphenoxylate-atropine 2.5 10 ml PO Q6H PRN diarrhea #60 mL 09/02/24 mg-0.025 mg/5 mL oral liquid ondansetron 4 mg disintegrating 4 mg translingual Q6H PRN nausea 09/02/24 tablet and vomiting #30 tabs olanzapine 5 mg tablet 5 mg PO DAILY 5 days #5 tabs 09/09/24 gabapentin 100 mg capsule 100 mg PO TID #30 caps 09/24/24 magnesium oxide 400 mg PO BID #40 tabs 10/09/24 Allergies Allergy/AdvReac Type Severity Reaction Status Date / Time No Known Allergies Allergy Verified 10/08/24 09:24 [facility] PFSH: Medical History (Updated 10/13/24 @ 19:22 by MING Mckeon) Fibromyalgia Rodriguez esophagus Ch mgr wo dorothy w ntr w st Spasmodic torticollis Chronic depression Surgical History History of cholecystectomy History of eye surgery Family History Father Hypertension Crohn's disease Mother Cancer Social History Smoking and tobacco/nicotine status: never used tobacco/nicotine Course Vital Signs: Vital signs: Vital Signs Temperature 97.7 F 10/13/24 17:17 Pulse Rate 101 H 10/13/24 17:17 Respiratory Rate 16 10/13/24 17:17 Blood Pressure 112/83 10/13/24 17:17 Pulse Oximetry 100 10/13/24 17:17 Oxygen Delivery Me thod Room Air 10/13/24 17:17 MDM - Headache Medical Decision Making Patient is a 69-year-old male with HER2 positive metastatic esophageal cancer with last treatment 10/08, cycle 3 FOLFIRI trastuzumab chemotherapy, presents to the ED with notable temperature 101 ?F taken at 1500 today, for which patient had Tylenol after. He presented to the ED without fever at 97.7. He is neutropenic, with neutrophil 0.5, WBC 1.5, however platelets are preserved at 195, with patient noting he did receive a 10 pack of FFP's and PRBC last week. Hemoglobin is stable at 10.7. Unfortunately, lactic acid is increased at 2.5, and reflex has not yet been obtained. Patient possibly has sepsis, and has received 2 L IV fluid bolus. Magnesium that is low at 1.5, is being replaced with 4 g. Will further discuss with hospitalist on-call for admission for neutropenic fever. Urine analysis is pending. Urine analysis is benign. Additional differentials considered is temporal arteritis given the location of his pain, which will be deferred to hospitalist/any concern for consultation of surgeon. Discussed with the hospitalist on-call, she has accepted admission Chart reviewed and patient discussed with midlevel. Agree with assessment and plan. Lab Data 10/13/24 18:01 10/13/24 18:01 Laboratory Results WBC 1.26 10^3/uL (3.29-11.43) L 10/13/24 18: RBC 3.73 10^6/uL (3.85-5.65) L 10/13/24 18:01 Hgb 10.70 g/dL (11.27-16.99) L 10/13/24 18: Hct 31.7 % (37-53) L 10/13/24 18: MCV 85.0 fl (82-101) 10/13/24 18: MCH 28.7 pg (27-33) 10/13/24 18: MCHC 33.8 g/dL (30-55) 10/13/24 18: RDW 14.2 % (12.1-15.1) 10/13/24 18: Plt Count 195 10^3/cmm (157-399) 10/13/24 18: MPV 9.2 fL (7.4-10.4) 10/13/24 18: Neut % (Auto) 41.3 % 10/13/24 18: Lymph % (Auto) 44.4 % 10/13/24 18: Meigs % (Auto) 7.1 % 10/13/24 18: Eos % (Auto) 4.0 % 10/13/24 18: Baso % (Auto) 1.6 % 10/13/24 18: Neut # (Auto) 0.52 10^3/uL (1.8-7.7) L* 10/13/24 18: Lymph # (Auto) 0.6 10^3/uL (0.8-4.8) L 10/13/24 18: Meigs # (Auto) 0.1 10^3/uL (0.2-0.9) L 10/13/24 18: Eos # (Auto) 0.1 10^3/uL (0.0-0.8) 10/13/24 18: Baso # (Auto) 0.0 10^3/uL (0.0-0.1) 10/13/24 18: Nucleated RBC % (auto) 0 % 10/13/24 18: Nucleated RBCs # 0.0 /100WBC 10/13/24 18: Sodium 136 mmol/L (136-145) 10/13/24 18: Potassium 3.9 mmol/L (3.5-5.1) 10/13/24 18: Chloride 99 mmol/L (98-107) 10/13/24 18: Carbon Dioxide 25 mmol/L (22-29) 10/13/24 18: Anion Gap 15.9 (5-19) 10/13/24 18: BUN 24 mg/dL (8-23) H 10/13/24 18: Creatinine 0.7 mg/dL (0.7-1.2) 10/13/24 18: GFR Calculation 111.8 mL/min (90-130) 10/13/24 18: Glucose 120 mg/dL (65-115) H 10/13/24 18:01 Calculated Osmolality 287 mOsm/kg (285-295) 10/13/24 18:01 Lactic Acid 2.5 mmol/L (0.5-2.2) H 10/13/24 18:01 Calcium 10.1 mg/dL (8.5-10.5) 10/13/24 18:01 Magnesium 1.5 mg/dL (1.7-2.3) L 10/13/24 18: Total Bilirubin 0.5 mg/dL (0.15-1.2) 10/13/24 18:01 AST 19 U/L (0-40) 10/13/24 18:01 ALT 22 U/L (0-41) 10/13/24 18: Alkaline Phosphatase 175 U/L (40-130) H 10/13/24 18:01 Total Protein 6.7 g/dL (6.6-8.7) 10/13/24 18:01 Albumin 3.6 g/dL (3.5-5.2) 10/13/24 18: Globulin 3.1 g/dL (1.3-4.6) 10/13/24 18:01 Influenza A (PCR) Negative (Negative) 10/13/24 18:01 Influenza Type B (PCR) Negative (Negative) 10/13/24 18:01 RSV (PCR) Negative (Negative) 10/13/24 18:01 SARS-CoV-2 (PCR) Negative (Negative) 10/13/24 18:01 Discharge Plan Discharge Patient Disposition: Admitted As Inpatient Clinical Impression: Neutropenic fever, Hypomagnesemia Condition: Stable Discharge Diet: Usual diet Discharge Activity: Resume usual activity Coding Level of Care Code ED Knockout Worker for Venkatesh Plascencia
[2024-10-13 18:11] LABS: Hematocrit 31.7 % (37-53); Hemoglobin 10.70 g/dL (11.27-16.99); Mean Corpuscular HGB Conc 33.8 g/dL (30-55); Mean Corpuscular Hemoglobin 28.7 pg (27-33); Mean Corpuscular Volume 85.0 fl (82-101); Nucleated Red Blood Cells % 0 %; Platelet Count 195 10^3/cmm (157-399); Red Blood Count 3.73 10^6/uL (3.85-5.65); White Blood Count 1.26 10^3/uL (3.29-11.43)
[2024-10-13 18:31] LABS: Alanine Aminotransferase 22 U/L (0-41); Albumin Level 3.6 g/dL (3.5-5.2); Alkaline Phosphatase 175 U/L (40-130); Anion Gap 15.9 (5-19); Aspartate Amino Transferase 19 U/L (0-40); Blood Urea Nitrogen 24 mg/dL (8-23); Calcium 10.1 mg/dL (8.5-10.5); Carbon Dioxide 25 mmol/L (22-29); Chloride 99 mmol/L (98-107); Creatinine Clr Calc Pharmacy 95.9471; Globulin 3.1 g/dL (1.3-4.6); Glucose 120 mg/dL (65-115); Magnesium 1.5 mg/dL (1.7-2.3); Osmolality Calculated 287 mOsm/kg (285-295); Potassium 3.9 mmol/L (3.5-5.1); Sodium 136 mmol/L (136-145); Total Protein 6.7 g/dL (6.6-8.7)
[2024-10-13 18:32] LABS: Lactic Sepsis W/Reflex 2.5 mmol/L (0.5-2.2)
[2024-10-13 18:47] LABS: Slide Review Slide Review Perform
[2024-10-13 18:51] LABS: Respiratory Syncytial Virus Ce NEGATIVE (Negative); SARS-CoV-2 PCR NEGATIVE (Negative)
[2024-10-13] MEDS: cefepime 2,000 mg SDV 2000 MG IVP (18:51)
--- NOTE | 2024-10-13 19:18 | XRR_ITS ---
PROCEDURE INFORMATION: Exam: XR Chest Exam date and time: 10/13/2024 7:52 PM Age: 69 years old Clinical indication: Fever; Prior surgery; Surgery date: 6+ months; Surgery type: Port; Additional info: Neutropenic fever TECHNIQUE: Imaging protocol: Radiologic exam of the chest. Views: 1 view. COMPARISON: CR XR chest 1V portable [id number] 09/26/2024 11:28 AM FINDINGS: Tubes, catheters and devices: Left chest Port-A-Cath. Lungs: Few nonspecific although chronic appearing strands at the lung bases. Pleural spaces: Unremarkable. No pleural effusion. No pneumothorax. Heart/Mediastinum: Unremarkable. No cardiomegaly. Bones/joints: Unremarkable. Organs: Cholecystectomy clips. XR/XR chest 1V portable [id number] IMPRESSION: No definite acute infiltrate or effusion.
[2024-10-13 19:57] LABS: Reflex Lactate Order REFLEX LACTIC ORDERD
[2024-10-13] MEDS: ondansetron 2 mg/ML SDV 2 mL 4 MG IVP (20:30)
[2024-10-13] MEDS: magnesium sulfate premix 4 GM/100 ML PREMIX IV (20:37)
[2024-10-13] MEDS: lidocaine 2% viscous 15 ML, aluminum-mag hydrox-simethicon 30 ML, sucralfate oral liq 1 GM PO (20:45)
[2024-10-13 21:34] LABS: Glucose Urine UA Negative (Normal); Nitrate Urine Negative (Negative); Specific Gravity, Urine 1.021 (1.005-1.030)
[2024-10-13 21:36] LABS: Lactic Acid level (Lactate) 2.6 mmol/L (0.5-2.2)
[2024-10-13 21:36] LABS: Add Urine Microscopic? YES
[2024-10-14] VITALS (7 sets, daily range): BP systolic 99–124; BP diastolic 66–79; PULSE 77–96; RESP 16–26; TEMP 36.1–37.1; O2SAT 96–99
--- NOTE | 2024-10-14 01:17 | PM.HP ---
Providers/Chief Complaint Admitting Physician: Guera Pierce MD--patient seen and evaluated before 12 midnight Primary Care Provider: Teri Mensah APN Chief Complaint: pain in eyebrow History of Present Illness Hi Gil is a 69 year old male with a history of esophageal cancer. Patient had undergone 25 rounds of radiation therapy and had completed that in April 2024. Patient now is still undergoing chemotherapy once a week every Sunday. Patient presents with febrile illness with white count of 1.26. Hemoglobin 10.7. And also had been having diarrhea at home. This patient had come to the emergency room earlier on during the day feeling dizzy and was given 2 L of fluid and it was noted that patient was volume contracted and he got better and went home. When he got home he started having massive diarrhea and not doing well running fever and came back. Patient indeed had neutropenic fever. And he also have photophobia that it is not having problem in the left eye and the eyebrow region for some reason. At presentation systolic blood pressure was very soft at 93 systolic and the heart rate was tachycardic at 130. Patient was pancultured and was given antibiotics 2 g of cefepime and loaded with vancomycin as well in the emergency room. With that he was beginning to feel well but because of neutropenia and also fever patient was admitted to stepdown unit for optimization of care. Patient is a patient of Dr. Jimenez the heme oncology. Once medically optimized and patient can be discharged to continue to follow-up with the PCP and also the heme oncology. Continue patient on antibiotics and continue to follow-up with patient neutropenia Review of Systems Narrative: System review were significant for systemic symptomatology of fever and diarrhea likely all secondary to chemotherapy induced. Medications/Allergies Home Medications ?Medication ?Instructions ?Recorded ?Confirmed ?Last Taken ?Type bisoprolol fumarate 5 mg tablet 5 mg PO DAILY 12/12/23 10/08/24 Unknown History cyclobenzaprine 5 mg tablet 5 mg PO TID PRN muscle spasm #14 12/12/23 10/08/24 Unknown Rx tabs lisinopril 2.5 mg tablet 25 mg PO DAILY 12/12/23 10/08/24 Unknown History meloxicam 7.5 mg tablet 7.5 mg PO .Twice daily #14 tabs 12/12/23 10/08/24 Unknown Rx pantoprazole 40 mg tablet,delayed 40 mg PO BID 10/30/24 08/27/25 Unknown History release prochlorperazine maleate 10 mg 10 mg PO Q4H PRN mild nausea #30 08/19/24 10/08/24 Unknown Rx tablet (Compazine) tabs diphenoxylate-atropine 2.5 10 ml PO Q6H PRN diarrhea #60 mL 09/02/24 10/08/24 Unknown Rx mg-0.025 mg/5 mL oral liquid furosemide 20 mg tablet (Lasix) 20 mg PO DAILY 09/02/24 10/08/24 Unknown History ondansetron 4 mg disintegrating 4 mg translingual Q6H PRN nausea 09/02/24 10/08/24 Unknown Rx tablet and vomiting #30 tabs potassium 75 mg tablet mg PO DAILY 09/02/24 10/08/24 Unknown History olanzapine 5 mg tablet 5 mg PO DAILY 5 days #5 tabs 09/09/24 10/08/24 Unknown Rx gabapentin 100 mg capsule 100 mg PO TID #30 caps 09/24/24 10/08/24 Unknown Rx oxycodone 30 mg tablet mg PO 10/08/24 10/08/24 Unknown History magnesium oxide 400 mg PO BID #40 tabs 10/09/24 10/09/24 Unknown Rx Allergies Allergy/AdvReac Type Severity Reaction Status Date / Time No Known Allergies Allergy Verified 10/08/24 09:24 PFSH Acute PFSH: Medical History Fibromyalgia Rodriguez esophagus Ch mgr wo dorothy w ntr w st Spasmodic torticollis Chronic depression Surgical History History of cholecystectomy History of eye surgery Family History Father Hypertension Crohn's disease Mother Cancer Social History Smoking and tobacco/nicotine status: never used tobacco/nicotine Vitals/I&O/Wt Last Vital Signs Temp 97.9 F 10/14/24 00:00 Pulse 86 10/14/24 00:00 Resp 18 10/14/24 00:00 BP 121/79 10/14/24 00:00 Pulse Ox 97 10/14/24 00:00 O2 Del Method Room Air 10/14/24 00:00 10/13/24 10/13/24 10/14/24 14:59 22:59 06:59 Intake Total 2350 / 2350 Output Total 0 / 0 Balance 2350 / 2350 Weight last 48 hrs Weight 84.731 kg Weight 81.647 kg Physical Exam Narrative: Patient is tired appearing but not toxic HEENT normocephalic atraumatic neck neck is supple cardiovascular heart rate is regular lungs are pretty much clear abdomen soft nontender nondistended unremarkable extremities are intact no edema has good pulses neurology he has no focality lab studies have been reviewed and noted Data 10/14/24 02:56 10/13/24 18:01 Micro: Microbiology 10/13/24 18:12 Blood Culture - Preliminary Blood SPECIMEN COLLECTED 10/13/24 18:01 Blood Culture - Preliminary Blood SPECIMEN COLLECTED A&P Assessment and plan 1. Neutropenic fever: 2. Neuropathy: 3. Hypomagnesemia: 4. Chemotherapy induced nausea and vomiting: Plan: Neutropenic fever on chemotherapy Panculture from blood and urine - Continue vancomycin and cefepime to cover the notorious gram-negative and also gram-positive with vancomycin must continue to monitor - Continue with gentle hydration - Pain management provided for the patient - Collect stool once available as patient was running diarrhea at home. - Follow cultures and to optimize accordingly Esophageal cancer status post radiation therapy completion Patient undergoing active chemotherapy with Dr. Jimenez PDMP PDMP Reviewed: Not Reviewed Attestations Medical Necessity Statement*: Patient is with neutropenic fever and be treated for at least 2 midnights patient is inpatient and meets the criteria Coding Level of Care Code 98289 Diagnoses Neutropenic fever D70.9; R50.81 Neuropathy G62.9 Hypomagnesemia E83.42 Chemotherapy induced nausea and vomiting R11.2; T45.1X5A Time Spent (min) 60
[2024-10-14] MEDS: heparin 5,000 unit/mL INJ 1 mL 5000 UNIT SUBCUT (02:29)
[2024-10-14] MEDS: cefepime 2,000 mg SDV 2000 MG IVP (02:29)
[2024-10-14 03:23] LABS: Hematocrit 29.6 % (37-53); Hemoglobin 9.50 g/dL (11.27-16.99); Mean Corpuscular HGB Conc 32.1 g/dL (30-55); Mean Corpuscular Hemoglobin 28.4 pg (27-33); Mean Corpuscular Volume 88.4 fl (82-101); Nucleated Red Blood Cells % 0 %; Platelet Count 172 10^3/cmm (157-399); Red Blood Count 3.35 10^6/uL (3.85-5.65); White Blood Count 1.26 10^3/uL (3.29-11.43)
[2024-10-14 04:33] LABS: Slide Review Slide Review Perform
--- NOTE | 2024-10-14 07:07 | PHA.VACGOAL ---
Vancomycin Goal - Goal Vancomycin Goal:: 15-20 mg/L Vancomycin Indication:: Other (SEPSIS) - Therapy Current therapy:: Cefepime Day of therpy:: Day []of [] . Actual body weight (kg): 186 lb 11.2 oz - Data Labs: WBC 1.26 10^3/uL (3.29-11.43) L 10/14/24 02:56 RBC 3.35 10^6/uL (3.85-5.65) L 10/14/24 02:56 Hgb 9.50 g/dL (11.27-16.99) L 10/14/24 02:56 Hct 29.6 % (37-53) L 10/14/24 02:56 MCV 88.4 fl (82-101) 10/14/24 02:56 MCH 28.4 pg (27-33) 10/14/24 02:56 MCHC 32.1 g/dL (30-55) D 10/14/24 02:56 RDW 14.2 % (12.1-15.1) 10/14/24 02:56 Sodium 136 mmol/L (136-145) 10/13/24 18:01 Potassium 3.9 mmol/L (3.5-5.1) 10/13/24 18:01 Chloride 99 mmol/L (98-107) 10/13/24 18:01 Carbon Dioxide 25 mmol/L (22-29) 10/13/24 18:01 Anion Gap 15.9 (5-19) 10/13/24 18:01 BUN 24 mg/dL (8-23) H 10/13/24 18:01 Creatinine 0.7 mg/dL (0.7-1.2) 10/13/24 18:01 GFR Calculation 111.8 mL/min (90-130) 10/13/24 18:01 Last dialysis session:: N/A Treatment plan:: new consult Regimen:: 1250 MG DOSE GIVEN IN ER INITIAL MAINTENANCE DOSE OF 1000 MG Q8H PER DOSING PROTOCOL Follow up:: WILL CONTINUE TO MONITOR AND FOLLOW UP DAILY
--- NOTE | 2024-10-14 08:56 | CT_ITS ---
WS: [id number] CT HEAD NONCONTRAST HISTORY: Headache TECHNIQUE: Contiguous axial imaging performed through the brain. Bone and soft tissue windows. Sagittal and coronal reformats reviewed. All CT scans at [facility] use at least one of these dose optimization techniques: automated exposure control; mA and/or kV adjustment per patient size (includes targeted exams where dose is matched to clinical indication); or iterative reconstruction. DLP: 1138.04 mGy.cm COMPARISON: None available. Hyperdense LEFT transverse sinus and straight sinus and LEFT sigmoid sinus. No acute hemorrhagic venous infarct is identified. Mild symmetric atrophy and small vessel disease. Subtle area of lower attenuation in the LEFT temporal lobe. Moderate small vessel disease. Ventricles: Normal size with no hydrocephalus. No inferior displacement of the cerebellar tonsils. Paranasal sinuses: As visualized are clear. Mastoid air cells: Well pneumatized. Calvarium and scalp: No fracture. There are a few very small lytic changes within the calvarium which are indeterminate. CT/CT head wo con* [id number] IMPRESSION: 1. Findings highly suspicious for acute cerebral vein thrombosis including the straight sinus, LEFT transverse sinus and sigmoid sinus. 2. No hemorrhagic venous infarct identified. Subtle area of decreased attenuat ion in the posterior LEFT temporal lobe may be a developing infarct. Recommend follow-up MRI brain with and without contrast and MRV. Notified Ovidio Saul MD at 10/14/2024 9:47 AM.
--- NOTE | 2024-10-14 09:02 | PC.CHAP ---
Pastoral Care Encounter/Spiritual Assessment Type of Contact [] Declined user support analyst visit [] Patient/Family/Request visit [] Outpatient visit [] Follow-up visit [] Physician referral [] Code/Alert [] Routine visit [] Staff referral [] Actively dying [] Patient sleeping [] Family support [] [] Out of room [] Palliative care [] [] Receiving care in room [] Pre-surgical visit [] Trauma [] Long length of stay [] ICU visit [x] Other:Contact precautions. No visit. Relational/Emotional Strength [] Patient feels connected with others/family/visitors/staff [] Distress [] Loneliness/isolation [] Abandonment Spirituality of Patient [] Person of Elizabeth [] Attends Mandaeism of their Elizabeth [] Believes in Prayer [] Reads Bible or Yazidism materials [] There are Spiritual issues to be addressed Environmental Protection Forester Interventions [] Prayer [] Active listening [] Non-anxious presence [] Spiritual/emotional support [] Crisis/trauma care [] Spiritual counseling [] Bereavement support [] Provided bereavement packet [] Provided Bible/devotional materials [] Provided toy/stuffed animal, coloring book to patient or family member [] Provided Communion [] Anointing/[place] [] Salvation [] Completed spiritual assessment [] Other: Impact on Illness or Injury [] Angry [] Fearful [] Anxious [] Often cries [] Exhaustion [] Unable to work [] Unable to attend islam [] Unable to walk/stand [] Unable to read [] Unable to drive [] Unable to eat/drink [] Unable to sleep [] Unable to be with family [] Patient intubated [] Other: Summary Time spent with patient
[2024-10-14 09:05] LABS: Estmated Average Glucose 105; Hemoglobin A1C 5.3 % (4.0-6.0)
[2024-10-14 09:32] LABS: Procalcitonin 0.06 ng/mL (0-0.5); Vitamin B12 422 pg/mL (232-1245)
[2024-10-14 09:47] LABS: Iron 106 ug/dL (59-158); Total Iron Binding Capacity 308 mcg/dl; Unsaturated Iron Binding 202 ug/dL (112-347)
--- NOTE | 2024-10-14 09:52 | MR_ITS ---
WS: [id number] MRI HEAD WITH CONTRAST TECHNIQUE: Sagittal T1, T2 axial, T2 axial FLAIR, axial susceptibility weighted imaging, axial diffusion weighted images, and coronal T2 images were obtained. Pre and post-T1 axial and post T1 coronal images. ADC and FSPGR images. CLINICAL INFORMATION: Concern for dural vein thrombosis COMPARISON: None. FINDINGS: Acute appearing occlusion of the LEFT sigmoid and transverse sinus. This also extends into the visualized distal jugular vein at the skull base. RIGHT transverse and sigmoid sinus are patent. Straight sinus appears patent. Thrombosis also probably extends into the LEFT cortical vein of Aries. Changes o f venous congestion in the LEFT temporal lobe with associated edema. No restricted diffusion although patient at risk for developing venous infarct. No hemosiderin. No visualized enhancing metastatic lesions. Fourth ventricle remains patent. Moderate small vessel changes. Mild parenchymal volume loss. Small vessel changes in the bernadine. Normal vascular flow voids at the skull base. No extra- axial fluid collections. Paranasal sinuses are well aerated. Mild mucosal thickening in the mastoid air cells. Normal optic chiasm and pituitary infundib ulum. MR/MR head wo/w con [id number] IMPRESSION: 1. Acute appearing occlusion of the LEFT distal jugular vein, sigmoid sinus an d transverse sinus compatible with dural sinus thrombosis. 2. Venous congestion with edema involving the LEFT temporal lobe. No restricte d diffusion to indicate acute infarct although patient at risk for venous infar ct. 3. No other acute findings. Notified Ovidio Saul MD at 10/14/2024 2:10 PM.
--- NOTE | 2024-10-14 09:52 | USCV_ITS ---
Hi Gil Age: 69 Gender: M : 1955 Exam Date: 10/14/2024 10:44 Ordering Phys: Ovidio Saul MD Technologist: Exam Location: [facility] [place]: ? dvt bed stasis PROCEDURES: The venous duplex Doppler examination of both lower extremities was performed in the standard fashion. The following venous structures were evaluated: common femoral vein, profunda vein, proximal portion of the greater saphenous vein, superficial femoral vein, and the popliteal vein. In addition, the posterior tibial and peroneal trunk were evaluated. FINDINGS: Normal 2-D Doppler and augmentation and compressibility throughout the lower extremity venous structures. Additional imaging through the proximal calf veins also reveals no thrombus. Limited evaluation of the greater saphenous vein is patent with no thrombus. CONCLUSIONS No DVT bilateral lower extremities. Dr. Avis Proctor DO (Electronically Signed) Final Date: 14 October 2024 11:31 S
--- NOTE | 2024-10-14 10:27 | MR_ITS ---
WS: [id number] MR venography without gadolinium enhancement INDICATION: Dural sinus thrombosis TECHNIQUE: [id number] MR venogram with maximum intensity projection images. FINDINGS: Loss of signal involving the LEFT sigmoid sinus and transverse sinus compatible with thrombosis. Normal sagittal sinus. RIGHT transverse sinus and sigmoid sinus are patent. Straight sinus appears patent. Internal cerebral veins are patent. MR/[place] [id number] IMPRESSION: Dural sinus thrombosis with occlusion of the LEFT sigmoid and trans verse sinuses
--- NOTE | 2024-10-14 10:40 | P.PN_ITS ---
Subjective 2 Subjective: Admitted overnight. Patient states she presented to the hospital because of ongoing left-sided severe headache along with cloudy vision from the left eye. States the vision still persists. States vomiting and diarrhea is chronic and has not changed for him recently. States he feels as if his face is puffy though he knows it is not. Denies any weakness or numbness in any of his limbs. Vitals/I&O/Wt Last Vital Signs Temp 96.9 F L 10/14/24 07:31 Pulse 77 10/14/24 07:31 Resp 16 10/14/24 07:31 BP 118/78 10/14/24 07:31 Pulse Ox 97 10/14/24 07:31 O2 Del Method Room Air 10/14/24 03:51 10/13/24 10/14/24 10/14/24 22:59 06:59 14:59 Intake Total 2350 / 2350 438.333 / 2788.333 811.667 / 811.667 Output Total 0 / 0 300 / 300 Balance 2350 / 2350 138.333 / 2488.333 811.667 / 811.667 Weight last 48 hrs Weight 84.686 kg Weight 84.731 kg Weight 81.647 kg Physical Exam 2 Narrative: General: No acute distress, AO x3, chronically sick appearing HEENT: PERRLA, pupils bilaterally equal and reactive, left eye ptosis present as per patient chronic, Chest: Normal vesicular breath sounds, no added sounds, equal good air entry bilaterally CVS: S1-S2 regular, no murmurs, no tachycardia, no gallops, no rubs Abdomen: Soft, nontender, no organomegaly, bowel sounds present Neuro: No focal deficits, no facial deformity, AO x3, power 5/5 in all limbs Data 10/14/24 02:56 10/13/24 18:01 Micro: Microbiology 10/13/24 18:12 Blood Culture - Preliminary Blood SPECIMEN COLLECTED 10/13/24 18:01 Blood Culture - Preliminary Blood SPECIMEN COLLECTED A&P Assessment and plan 1. Neutropenic fever: Most likely in setting of recent chemotherapy. Neutropenic precautions. Monitor CBC. Follow-up blood culture, urine culture. No focal signs of infection for now. Continue with empiric IV vancomycin, switch to IV Zosyn. Check stool studies even though patient has chronic diarrhea thought to be in setting of chemotherapy to rule out C. difficile. 2. Neuropathy: 3. Hypomagnesemia: Replaced in the ER. Monitor daily. 4. Chemotherapy induced nausea and vomitin. Headache: Patient has a history of chronic migraines. Given his blurry vision, headache different than before CT head was checked which was concerning for a possible Acute cerebral vein thrombosis including straight sinus, left transverse sinus and sigmoid sinus along with infarct. Check MRI head with and without contrast, MRV. Empirically started on Lovenox 1 mg/kg body weight every 12 hourly. No thrombocytopenia no hemorrhagic conversion. Continue with NS at 75 cc/h. 6. Chemotherapy induced diarrhea: 7. Esophageal cancer, stage IV: 8. Cerebral vein thrombosis: 9. Cerebral venous infarction, acute: Plan: Full code. Cardiac diet. Protonix for PUD prophylaxis Full dose Lovenox will be sufficient for DVT prophylaxis PDMP PDMP Reviewed: Not Reviewed Attestations 2 Medical Necessity Statement*: Requires further hospitalization for management of neutropenic fever, headache with concerns for CVT Diagnoses Neutropenic fever D70.9; R50.81 Neuropathy G62.9 Hypomagnesemia E83.42 Chemotherapy induced nausea and vomiting R11.2; T45.1X5A Headache R51.9 Chemotherapy induced diarrhea K52.1; T45.1X5A Esophageal cancer, stage IV C15.9 Cerebral vein thrombosis G08 Cerebral venous infarction, acute I63.89
[2024-10-14] MEDS: piperacillin-tazobactam 3.375 GM in sodium chloride 0.9% (plus) 50 ML IV ×2 (11:12→18:35)
[2024-10-14 11:19] LABS: Magnesium 2.0 mg/dL (1.7-2.3)
--- NOTE | 2024-10-14 13:00 | PC.NURSE ---
Patient off the floor to MRI
[2024-10-14 23:04] LABS: INR 1.06 (0.8-1.2); Prothrombin Time 14.50 SECONDS (12.1-14.9)
[2024-10-14] MEDS: heparin drip 25,000 UNIT/500 ML PREMIX 24 UNIT IV (23:11)
[2024-10-15] VITALS: BP 103/64; PULSE 71; RESP 16; O2SAT 95
[2024-10-15] MEDS: piperacillin-tazobactam 3.375 GM in sodium chloride 0.9% (plus) 50 ML IV (03:17)
[2024-10-15 04:00] VITALS: BP 109/70; PULSE 78; RESP 16; TEMP 37.2; O2SAT 94
[2024-10-15 04:55] LABS: Hematocrit 26.3 % (37-53); Hemoglobin 8.70 g/dL (11.27-16.99); Mean Corpuscular HGB Conc 33.1 g/dL (30-55); Mean Corpuscular Hemoglobin 28.2 pg (27-33); Mean Corpuscular Volume 85.1 fl (82-101); Nucleated Red Blood Cells % 0 %; Platelet Count 149 10^3/cmm (157-399); Red Blood Count 3.09 10^6/uL (3.85-5.65); White Blood Count 1.64 10^3/uL (3.29-11.43)
[2024-10-15 05:25] LABS: Alanine Aminotransferase 19 U/L (0-41); Albumin Level 3.1 g/dL (3.5-5.2); Alkaline Phosphatase 159 U/L (40-130); Anion Gap 13.0 (5-19); Aspartate Amino Transferase 19 U/L (0-40); Blood Urea Nitrogen 16 mg/dL (8-23); Calcium 8.1 mg/dL (8.5-10.5); Carbon Dioxide 21 mmol/L (22-29); Chloride 103 mmol/L (98-107); Creatinine Clr Calc Pharmacy 97.4455; Globulin 2.6 g/dL (1.3-4.6); Glucose 103 mg/dL (65-115); Magnesium 1.7 mg/dL (1.7-2.3); Osmolality Calculated 277 mOsm/kg (285-295); Potassium 4.0 mmol/L (3.5-5.1); Sodium 133 mmol/L (136-145); Total Protein 5.7 g/dL (6.6-8.7)
[2024-10-15 05:26] LABS: Partial Thromboplastin Time 125.6 SECONDS (23.9-36.7)
[2024-10-15 05:28] LABS: Cholesterol 153 mg/dL (0-200); HDL Cholesterol 72 mg/dL (60-100); Triglycerides 54 mg/dL (0-150); VLDL Cholestrol Calculation 11 mg/dL (0-30)
[2024-10-15 08:00] VITALS: BP 116/73; PULSE 19; RESP 19; TEMP 36.7; O2SAT 97
--- NOTE | 2024-10-15 08:56 | PM.DCS ---
Discharge Providers Date of Admission: 10/13/24 19:25 Date of Discharge: October 15, 2024 Attending Provider at Admission: Guera Pierce MD Attending Provider at Discharge: Ovidio Saul MD Primary Care Provider: Teri Mensah APN Diagnoses at Discharge Discharge Diagnosis 1. Neutropenic fever: 2. Neuropathy: 3. Hypomagnesemia: 4. Chemotherapy induced nausea and vomitin. Headache: 6. Chemotherapy induced diarrhea: 7. Esophageal cancer, stage IV: 8. Cerebral vein thrombosis: 9. Cerebral venous infarction, acute: Reason for Visit Reason for Visit: pain in eyebrow Brief History: Per HPI: Hi Gil is a 69 year old male with a history of esophageal cancer. Patient had undergone 25 rounds of radiation therapy and had completed that in April 2024. Patient now is still undergoing chemotherapy once a week every Sunday. Patient presents with febrile illness with white count of 1.26. Hemoglobin 10.7. And also had been having diarrhea at home. This patient had come to the emergency room earlier on during the day feeling dizzy and was given 2 L of fluid and it was noted that patient was volume contracted and he got better and went home. When he got home he started having massive diarrhea and not doing well running fever and came back. Patient indeed had neutropenic fever. And he also have photophobia that it is not having problem in the left eye and the eyebrow region for some reason. At presentation systolic blood pressure was very soft at 93 systolic and the heart rate was tachycardic at 130. Patient was pancultured and was given antibiotics 2 g of cefepime and loaded with vancomycin as well in the emergency room. With that he was beginning to feel well but because of neutropenia and also fever patient was admitted to stepdown unit for optimization of care. Patient is a patient of Dr. Jimenez the [facility]. Hospital Course Hospital Course Patient was admitted to the hospital further evaluation and management. Admission he was found to be neutropenic for which he was started on broad-spectrum IV antibiotics. During hospitalization his blood culture remained negative. For persistent headache with mild blurry vision CT head was done which was concerning for central venous thrombosis which was confirmed with MRI and MRV. MRI showed straight and transverse sinus thrombosis with concern for vasogenic edema without concerns for hemorrhage or infarction. After discussion with neurology he was started on anticoagulation. He has been discharged in hemodynamically stable condition on Lovenox 1 mg/kg body weight twice daily for next 2 days after which he will be on Eliquis 10 mg twice daily for 1 week followed by 5 mg twice daily till port remains in place. He is to follow-up with his primary care provider within next 1 week. He will be on Augmentin and Levaquin empirically for next 5 days given neutropenia. Physical Exam Narrative: General: No acute distress, AO x3, chronically sick appearing HEENT: PERRLA, pupils bilaterally equal and reactive, left eye ptosis present as per patient chronic, Chest: Normal vesicular breath sounds, no added sounds, equal good air entry bilaterally CVS: S1-S2 regular, no murmurs, no tachycardia, no gallops, no rubs Abdomen: Soft, nontender, no organomegaly, bowel sounds present Neuro: No focal deficits, no facial deformity, AO x3, power 5/5 in all limbs Discharge Data Studies Completed and Pending Completed Studies During Hospitalization Category Date Time Status CT head wo con* [id number] Stat Cat Scan 10/14/24 08:56 Completed XR chest 1V portable [id number] Stat Exams 10/13/24 19:18 Completed MR head wo/w con [id number] Stat MRI 10/14/24 09:52 Completed MRV [[place] [id number]] Stat MRI 10/14/24 10:27 [place] [id number] Urgent Ultrasound 10/14/24 09:52 Completed Pending at discharge Category Date Time Status Blood Culture Stat Lab 10/13/24 18:12 Results C.Diff PCR (Lab) Routine Lab 10/14/24 08:28 Ordered Lactoferrin Routine Lab 10/14/24 08:28 Ordered OVA and Parasites, Conc and PE Routine Lab 10/14/24 08:28 Ordered PTT [Partial Thromboplastin Time] Timed Lab 10/15/24 11:30 Ordered Platelet Count Q2D Lab 10/16/24 04:00 Ordered Platelet Count Q2D Lab 10/18/24 04:00 Ordered Salmonella / Shigella / Campy Routine Lab 10/14/24 08:28 Ordered Vancomycin Trough Timed Lab 10/15/24 13:30 Ordered Radiology Impressions Chest X-Ray 10/13/24 19:18 IMPRESSION: No definite acute infiltrate or effusion. Head CT 10/14/24 08:56 IMPRESSION: 1. Findings highly suspicious for acute cerebral vein thrombosis including the straight sinus, LEFT transverse sinus and sigmoid sinus. 2. No hemorrhagic venous infarct identified. Subtle area of decreased attenuation in the posterior LEFT temporal lobe may be a developing infarct. Recommend follow-up MRI brain with and without contrast and MRV. Notified Ovidio Saul MD at 10/14/2024 9:47 AM. Head MRI 10/14/24 09:52 IMPRESSION: 1. Acute appearing occlusion of the LEFT distal jugular vein, sigmoid sinus and transverse sinus compatible with dural sinus thrombosis. 2. Venous congestion with edema involving the LEFT temporal lobe. No restricted diffusion to indicate acute infarct although patient at risk for venous infarct. 3. No other acute findings. Notified Ovidio Saul MD at 10/14/2024 2:10 PM. Head/Brain Mag Res Venography 10/14/24 10:27 IMPRESSION: Dural sinus thrombosis with occlusion of the LEFT sigmoid and transverse sinuses Microbiology 10/13/24 18:12 Blood Blood Culture - Preliminary NEGATIVE TO DATE 10/13/24 18:01 Blood Blood Culture - Preliminary NEGATIVE TO DATE Laboratory Results WBC 1.64 10^3/uL (3.29-11.43) L 10/15/24 04:42 RBC 3.09 10^6/uL (3.85-5.65) L 10/15/24 04:42 Hgb 8.70 g/dL (11.27-16.99) L 10/15/24 04:42 Hct 26.3 % (37-53) L 10/15/24 04:42 MCV 85.1 fl (82-101) 10/15/24 04:42 MCH 28.2 pg (27-33) 10/15/24 04:42 MCHC 33.1 g/dL (30-55) 10/15/24 04:42 RDW 14.6 % (12.1-15.1) 10/15/24 04:42 Plt Count 149 10^3/cmm (157-399) L 10/15/24 04:42 MPV 9.3 fL (7.4-10.4) 10/15/24 04:42 Neut % (Auto) 33.6 % 10/15/24 04:42 Lymph % (Auto) 55.5 % 10/15/24 04:42 [place] % (Auto) 6.7 % 10/15/24 04:42 Eos % (Auto) 2.4 % 10/15/24 04:42 Baso % (Auto) 0.6 % 10/15/24 04:42 Neut # (Auto) 0.55 10^3/uL (1.8-7.7) L* 10/15/24 04:42 Lymph # (Auto) 0.9 10^3/uL (0.8-4.8) 10/15/24 04:42 [place] # (Auto) 0.1 10^3/uL (0.2-0.9) L 10/15/24 04:42 Eos # (Auto) 0.0 10^3/uL (0.0-0.8) 10/15/24 04:42 Baso # (Auto) 0.0 10^3/uL (0.0-0.1) 10/15/24 04:42 Nucleated RBC % (auto) 0 % 10/15/24 04:42 Nucleated RBCs # 0.0 /100WBC 10/15/24 04:42 PT 14.50 SECONDS (12.1-14.9) 10/14/24 22:07 INR 1.06 (0.8-1.2) 10/14/24 22:07 APTT 125.6 SECONDS (23.9-36.7) H 10/15/24 04:42 Sodium 133 mmol/L (136-145) L 10/15/24 04:42 Potassium 4.0 mmol/L (3.5-5.1) 10/15/24 04:42 Chloride 103 mmol/L (98-107) 10/15/24 04:42 Carbon Dioxide 21 mmol/L (22-29) L 10/15/24 04:42 Anion Gap 13.0 (5-19) 10/15/24 04:42 BUN 16 mg/dL (8-23) 10/15/24 04:42 Creatinine 0.7 mg/dL (0.7-1.2) 10/15/24 04:42 GFR Calculation 111.8 mL/min (90-130) 10/15/24 04:42 Glucose 103 mg/dL (65-115) 10/15/24 04:42 Estimat Average Glucose 105 10/14/24 02:56 Hemoglobin A1c 5.3 % (4.0-6.0) 10/14/24 02:56 Calculated Osmolality 277 mOsm/kg (285-295) L 10/15/24 04:42 Lactic Acid 2.5 mmol/L (0.5-2.2) H 10/13/24 18:01 Lactic Acid (Sepsis) 2.6 mmol/L (0.5-2.2) H 10/13/24 21:17 Calcium 8.1 mg/dL (8.5-10.5) L 10/15/24 04:42 Phosphorus 2.5 mg/dL (2.5-4.5) 10/14/24 02:56 Magnesium 1.7 mg/dL (1.7-2.3) 10/15/24 04:42 Iron 106 ug/dL (59-158) 10/14/24 02:56 TIBC 308 mcg/dl 10/14/24 02:56 % Saturation 34.4 % (20-50) 10/14/24 02:56 Unsat Iron Binding 202 ug/dL (112-347) 10/14/24 02:56 Total Bilirubin 0.5 mg/dL (0.15-1.2) 10/15/24 04:42 AST 19 U/L (0-40) 10/15/24 04:42 ALT 19 U/L (0-41) 10/15/24 04:42 Alkaline Phosphatase 159 U/L (40-130) H 10/15/24 04:42 Total Protein 5.7 g/dL (6.6-8.7) L 10/15/24 04:42 Albumin 3.1 g/dL (3.5-5.2) L 10/15/24 04:42 Globulin 2.6 g/dL (1.3-4.6) 10/15/24 04:42 Triglycerides 54 mg/dL (0-150) 10/15/24 04:42 Cholesterol 153 mg/dL (0-200) 10/15/24 04:42 LDL Cholesterol, Calc 70 mg/dL (50-129) 10/15/24 04:42 Total VLDL Cholesterol 11 mg/dL (0-30) 10/15/24 04:42 HDL Cholesterol 72 mg/dL (60-100) 10/15/24 04:42 Cholesterol/HDL Ratio 2.13 mg/dL (1.0-5.00) 10/15/24 04:42 Vitamin B12 422 pg/mL (232-1245) 10/14/24 02:56 Folate > 20.0 ng/mL (4.5-32.2) 10/15/24 04:42 Procalcitonin 0.06 ng/mL (0-0.5) 10/14/24 02:56 Urine Color Yellow (Yellow) 10/13/24 21:22 Urine Appearance Cloudy (CLEAR) A 10/13/24 21:22 Urine pH 8.5 (5-7) A 10/13/24 21:22 Ur Specific [place] 1.021 (1.005-1.030) 10/13/24 21:22 Urine Protein Negative (Negative) 10/13/24 21: Urine Glucose (UA) Negative (Normal) 10/13/24 21: Urine Ketones Negative (Negative) 10/13/24 21:22 Urine Blood Negative (Negative) 10/13/24 21:22 Urine Nitrate Negative (Negative) 10/13/24 21:22 Urine Bilirubin Negative (Negative) 10/13/24 21:22 Urine Urobilinogen 0.2 mg/dL (Negative) 10/13/24 21:22 Ur Leukocyte Esterase Negative (Negative) 10/13/24 21:22 Urine RBC 0-2 /hpf (0-2) 10/13/24 21:22 Urine WBC 0-5 /hpf (0-5) 10/13/24 21:22 Ur Squamous Epith Cells 0-5 /hpf (0-5) 10/13/24 21:22 Amorphous Sediment Not Reportable 10/13/24 21:22 Urine Bacteria None seen /hpf (NONE) 10/13/24 21:22 Hyaline Casts 0-4 /lpf H 10/13/24 21:22 Influenza A (PCR) Negative (Negative) 10/13/24 18:01 Influenza Type B (PCR) Negative (Negative) 10/13/24 18:01 RSV (PCR) Negative (Negative) 10/13/24 18:01 SARS-CoV-2 (PCR) Negative (Negative) 10/13/24 18:01 Vitals Last Vital Signs Temp 99.0 F 10/15/24 04:00 Pulse 78 10/15/24 04:00 Resp 16 10/15/24 04:00 BP 109/70 10/15/24 04:00 Pulse Ox 94 10/15/24 04:00 O2 Del Method Room Air 10/15/24 04:00 Discharge Plan Discharge Patient Disposition: Home Condition: Stable Prescriptions: New Eliquis DVT-PE Treat 30D Start 5 mg (74 tabs) tablets,dose pack 5 mg PO BID Qty: 74 0RF Rx Instructions: 10 mg twice daily for 1 week followed by 5 mg twice daily Start after finishing Lovenox levofloxacin 750 mg tablet 750 mg PO Q24H 5 Days Qty: 5 0RF amoxicillin-pot clavulanate 875-125 mg tablet 1 tab PO BID 5 Days Qty: 10 0RF enoxaparin [Lovenox] 80 mg/0.8 mL syringe 85 mg SUBCUT Q12H 3 Days Qty: 5.1 0RF Continued oxycodone 30 mg tablet 30 mg PO TID PRN (Reason: Pain (Scale Score 4-6)) magnesium oxide 400 mg magnesium tablet 400 mg PO BID Qty: 40 0RF pantoprazole 40 mg tablet,delayed release (DR/EC) 40 mg PO BID Changed furosemide [Lasix] 20 mg tablet 20 mg PO DAILY PRN (Reason: Weight gain of 5 pounds) 10 Days Qty: 10 0RF potassium chloride 10 mEq tablet,ER particles/crystals 10 meq PO BID PRN (Reason: Along with Lasix) Qty: 10 0RF Held bisoprolol fumarate 5 mg tablet 5 mg PO QPM Hold Instructions: Resume on 10/22/24. Referrals: Teri Mensah APN [Primary Care Provider, [facility]] - 10/21/24 11:00 am Discharge Diet: Usual diet Discharge Activity: Resume usual activity Patient Instructions: Amoxicillin (By mouth), Enoxaparin (By injection), Levofloxacin (By mouth), Apixaban (By mouth), Opioid Safety, Patient Portal & [place] Instructions Activity Restrictions/Additional Instructions: Take Augmentin and Levaquin which are the antibiotics for next 5 days. Follow-up with your primary care provider and your oncologist in 1 week. If you have any fever more than 101 please come back to the ER. Take Lovenox 85 mg morning and evening for next 5 doses. Start Eliquis which is also a blood thinner after completion of treatment with Lovenox. Once you start Eliquis, you will take Eliquis 10 mg (2 tab) twice a day for 7 days after that 5 mg (1 tab) twice a day till you have port in place. Check your blood pressure daily at home and blood pressure diary. Goal blood pressure is less than 140/90 mmHg. Take your home dose of bisoprolol only if your blood pressures are more than 120 systolics. Take Lasix only if your body weight increases by 5 pounds. Take potassium only when you are taking Lasix. Discharge Attestations Time Spent in Discharge Care*: greater than 30 min Specific Discharge Activities: educating patient, educating and/or supporting family/caregiver, discussing with pcp/other providers, discussing with case investigator/social workers/dc planners, documenting/other paperwork and evaluating patient/reviewing data Status at Discharge: Cognitive status at discharge: cognitively intact, Behavioral status at discharge: cooperative, Functional status at discharge: independent ambulation, Overall status at discharge: patient is back to baseline Quality Metrics Clinical Quality Measures [ No reported AMI, CVA or VTE this stay] Coding Level of Care Code 09643 Total time (in minutes) for Discharge: 65 Diagnoses Neutropenic fever D70.9; R50.81 Neuropathy G62.9 Hypomagnesemia E83.42 Chemotherapy induced nausea and vomiting R11.2; T45.1X5A Headache R51.9 Chemotherapy induced diarrhea K52.1; T45.1X5A Esophageal cancer, stage IV C15.9 Cerebral vein thrombosis G08 Cerebral venous infarction, acute I63.89
--- NOTE | 2024-10-15 09:06 | USCV_ITS ---
Hi Gil Age: 69 Gender: M : 1955 Exam Date: 10/15/2024 12:22 Ordering Phys: Ovidio Saul MD Technologist: Exam [place] [facility] [place]: ? jug thrombus Findings Normal flow and phasicity bilateral jugular veins. Conclusions No DVT in the jugular veins. Dr. Avis Proctor DO (Electronically Signed) Final Date: 15 October 2024 13:56 S
--- NOTE | 2024-10-15 09:35 | PC.SOCIAL ---
IMM Update Updated pt on IMM. No questions voiced. Provided pt a copy. Initialed,dated, & timed a copy & placed in chart.
--- NOTE | 2024-10-15 09:37 | PC.NURSE ---
orthodontic treatment coordinator rounds, gave patient stroke education book. Talked about signs and symptoms of stroke and preventative measures.
--- NOTE | 2024-10-15 09:46 | PC.CHAP ---
Pastoral Care Encounter/Spiritual Assessment Type of Contact [] Declined media production operator visit [] Patient/Family/Request visit [] Outpatient visit [] Follow-up visit [] Physician referral [] Code/Alert [] Routine visit [] Staff referral [] Actively dying [] Patient sleeping [] Family support [] [] Out of room [] Palliative care [] [] Receiving care in room [] Pre-surgical visit [] Trauma [] Long length of stay [] ICU visit [] Other:Contact precautions. No visit. Relational/Emotional Strength [] Patient feels connected with others/family/visitors/staff [] Distress [] Loneliness/isolation [] Abandonment Spirituality of Patient [] Person of Elizabeth [] Attends Evangelical of their Elizabeth [] Believes in Prayer [] Reads Bible or Voodoo materials [] There are Spiritual issues to be addressed Coil Tester Interventions [] Prayer [] Active listening [] Non-anxious presence [] Spiritual/emotional support [] Crisis/trauma care [] Spiritual counseling [] Bereavement support [] Provided bereavement packet [] Provided Bible/devotional materials [] Provided toy/stuffed animal, coloring book to patient or family member [] Provided Communion [] Anointing/[place] [] Salvation [] Completed spiritual assessment [] Other: Impact on Illness or Injury [] Angry [] Fearful [] Anxious [] Often cries [] Exhaustion [] Unable to work [] Unable to attend cheondoism [] Unable to walk/stand [] Unable to read [] Unable to drive [] Unable to eat/drink [] Unable to sleep [] Unable to be with family [] Patient intubated [] Other: Summary Time spent with patient
[2024-10-15 12:09] LABS: Partial Thromboplastin Time 127.6 SECONDS (23.9-36.7)
--- NOTE | 2024-10-15 14:35 | PC.NURSE ---
Patient discharged to home. Instruction provided regarding follow up information, new medications with changes. Patient verbalized complete understanding. New Rx transmitted to [facility]. Patient denies pain or needs. No distress observed. patient taken by wheelchair to private vehicle with spouse at side.
[2024-10-15 14:38] VITALS: BP 118/72; PULSE 87; O2SAT 99
== END 2024-10-15 14:41 | disposition home or self-care (01) | DRG 808 ==
LOC: ER 20:02 → CSU 21:37
PROVIDERS: Admitting Provider Internal Medicine; Emergency Provider Physician Assistant; PCP Nurse Practitioner Family; Visit Provider Student in an Organized Health Care Education/Training Program
DX: D70.1 Agranulocytosis secondary to cancer chemotherapy (principal); G08 Intracranial and intraspinal phlebitis and thrombophlebitis; C15.9 Malignant neoplasm of esophagus, unspecified; K52.1 Toxic gastroenteritis and colitis; I82.622 Acute embolism and thrombosis of deep veins of left upper extremity; T45.1X5A Adverse effect of antineoplastic and immunosuppressive drugs, initial encounter; R50.81 Fever presenting with conditions classified elsewhere; R11.2 Nausea with vomiting, unspecified; G62.9 Polyneuropathy, unspecified; E83.42 Hypomagnesemia; R51.9 Headache, unspecified; R00.0 Tachycardia, unspecified; M79.7 Fibromyalgia; G24.3 Spasmodic torticollis; H53.8 Other visual disturbances; F32.A Depression, unspecified; Z79.01 Long term (current) use of anticoagulants
CPT/HCPCS: 36415; 36591; 70450; 70544; 70553; 71045; 80053; 80061; 81001; 82607; 82746; 83036; 83540; 83550; 83605; 83735; 84100; 84145; 85025; 85610; 85730; 87040; 87637; 93970; 93998; 96365; 96366; 96367; 96372; 96375; 99285; J0692; J1100; J1644; J1650; J2405; J2543; J3373; J3475; J7030; J7050; J9999

== ENCOUNTER 2024-11-10 09:00 | Oncology outpatient (recurring) (ONCR) | payer MEDICARE, SELFPAY ==
[2024-10-20 08:20] LABS: Hematocrit 33.0 % (37-53); Hemoglobin 10.70 g/dL (11.27-16.99); Mean Corpuscular HGB Conc 32.4 g/dL (30-55); Mean Corpuscular Hemoglobin 28.8 pg (27-33); Mean Corpuscular Volume 88.9 fl (82-101); Nucleated Red Blood Cells % 0 %; Platelet Count 179 10^3/cmm (157-399); Red Blood Count 3.71 10^6/uL (3.85-5.65); White Blood Count 2.18 10^3/uL (3.29-11.43)
[2024-10-20 08:33] LABS: INR 1.00 (0.8-1.2); Prothrombin Time 13.90 SECONDS (12.1-14.9)
[2024-10-20 08:37] LABS: Alanine Aminotransferase 57 U/L (0-41); Albumin Level 4.0 g/dL (3.5-5.2); Alkaline Phosphatase 234 U/L (40-130); Anion Gap 17.7 (5-19); Aspartate Amino Transferase 51 U/L (0-40); Blood Urea Nitrogen 17 mg/dL (8-23); Calcium 9.7 mg/dL (8.5-10.5); Carbon Dioxide 23 mmol/L (22-29); Chloride 103 mmol/L (98-107); Creatinine Clr Calc Pharmacy 97.0654; Globulin 2.9 g/dL (1.3-4.6); Glucose 146 mg/dL (65-115); Osmolality Calculated 294 mOsm/kg (285-295); Potassium 3.7 mmol/L (3.5-5.1); Sodium 140 mmol/L (136-145); Total Protein 6.9 g/dL (6.6-8.7)
[2024-10-27 08:24] LABS: Hematocrit 32.0 % (37-53); Hemoglobin 10.30 g/dL (11.27-16.99); Mean Corpuscular HGB Conc 32.2 g/dL (30-55); Mean Corpuscular Hemoglobin 28.5 pg (27-33); Mean Corpuscular Volume 88.4 fl (82-101); Nucleated Red Blood Cells % 0 %; Platelet Count 209 10^3/cmm (157-399); Red Blood Count 3.62 10^6/uL (3.85-5.65); White Blood Count 2.53 10^3/uL (3.29-11.43)
[2024-10-27 08:43] LABS: Alanine Aminotransferase 19 U/L (0-41); Albumin Level 3.8 g/dL (3.5-5.2); Alkaline Phosphatase 177 U/L (40-130); Anion Gap 15.3 (5-19); Aspartate Amino Transferase 22 U/L (0-40); Blood Urea Nitrogen 15 mg/dL (8-23); Calcium 9.3 mg/dL (8.5-10.5); Carbon Dioxide 24 mmol/L (22-29); Chloride 104 mmol/L (98-107); Creatinine Clr Calc Pharmacy 97.5826; Globulin 2.9 g/dL (1.3-4.6); Glucose 92 mg/dL (65-115); Osmolality Calculated 288 mOsm/kg (285-295); Potassium 4.3 mmol/L (3.5-5.1); Sodium 139 mmol/L (136-145); Total Protein 6.7 g/dL (6.6-8.7)
[2024-10-27] MEDS: aprepitant 130 mg/18 ml SDV IVP (10:06)
[2024-10-27] MEDS: dexamethasone 4 mg/mL INJ 5 mL 12 MG IVP (10:12)
[2024-10-27] MEDS: SODIUM CHLORIDE 0.9% IV (10:42)
[2024-10-27] MEDS: TRASTUZUMAB ANNS IV (10:42)
[2024-10-27] MEDS: DEXTROSE 5% IV (11:28)
[2024-10-27] MEDS: atropine 1 mg/mL SDV 1 mL 0.4 MG IV (11:28)
[2024-10-27] MEDS: IRINOTECAN IV (11:28)
[2024-10-27] MEDS: leucovorin 700 MG in dextrose 5% 250 ML 166.67 MG IV (11:28)
[2024-10-27] MEDS: fluorouraciL 4,200 MG, elastomeric pump 1 PUMP in sodium chloride 0.9% (100 ml) 8 ML IV (13:20)
[2024-10-27 13:33] VITALS: BP 142/81; PULSE 78; RESP 17; TEMP 36.4; O2SAT 96
[2024-10-27 13:33] LABS: Magnesium 1.6 mg/dL (1.7-2.3)
--- NOTE | 2024-11-07 10:00 | PETR_ITS ---
PROCEDURE INFORMATION: Exam: PET/CT Skull Base to Mid-thigh Exam date and time: 11/07/2024 11:07 AM Age: 69 years old Clinical indication: Condition or disease; Esophgeal cancer; Additional info: Cancer of lower third of esophagus, Dr. Jimenez would like this done on 11/07/24 LABS AND CLINICAL REPORTS: Glucose: 112 mg/dl Treatment strategy for malignancy (PET staging): Restaging (PS) TECHNIQUE: Imaging protocol: Following at least four-hour fasting and following the injection of radiopharmaceutical, low dose CT images were obtained. Then, PET images were obtained. Attenuation corrected images were constructed using the CT scan. Fused images of PET and CT were reviewed. The standardized uptake values (SUV) reported below are maximum values within a region of interest, expressed in gm/ml. Exam includes orbital meatal line to mid-thigh. SUV normalization method: BodyWeight Radiopharmaceutical: 11.8 mCi F-18 FDG (Fluorodeoxyglucose), IV. Time of imaging post radiopharmaceutical administration: 50 minutes Injection site: RT WRIST COMPARISON: PT PET skull to thigh SUBS [id number] 07/18/2024 11:22 AM FINDINGS: Tubes, catheters and devices: Left chest port terminates near the superior cavoatrial junction. Brain: Visualized brain has normal physiologic uptake. Pharynx: No abnormal uptake. Larynx: No abnormal uptake. Lungs, pleura and trachea: Resolved FDG-avid right lower lobe mass with residual non FDG avid bandlike opacity suggestive of scarring. Few FDG avid right lateral pleural nodular thickenings show mildly increased size with decreased FDG uptake, index measuring approximately 4.0 x 1.4 cm on axial image 136 with SUV max 4.4, previously 3.2 x 1.0 cm with SUV max 14.5. Couple mildly FDG avid posterolateral right pleural nodules are new, index measuring 1.9 x 0.9 cm on axial image 129 with SUV max 2.4. Stable non FDG avid irregular curvilinear left apical opacity on axial image 105 likely represents scarring. Mild bilateral lower lung subsegmental atelectasis versus scarring. Stable minimal right pleural effusion. Heart: Normal physiologic uptake. Coronary arteries: [id number] coronary artery calcification. Mediastinal space: No abnormal uptake. Esophagus: Stable CT appearance of distal esophageal thickening with decreased FDG uptake showing SUV max 7.2 on axial image 147, previously 10.5. Liver: No abnormal uptake. Gallbladder and biliary ducts: No abnormal uptake. Prior cholecystectomy. Pancreas: No abnormal uptake. Spleen: No abnormal uptake. Adrenal glands: No abnormal uptake. Kidneys and ureters: Normal physiologic uptake. Tiny left nonobstructive nephrolithiasis. Stomach and bowel: No abnormal uptake. Vasculature: No abnormal uptake. Mild systemic atherosclerotic calcification without aortic aneurysm. Lymph nodes: Decreased FDG avid mediastinal and bilateral hilar lymphadenopathy, index right infrabronchial node measures 6 mm in the short axis on axial image 135 with SUV max 3.5, previously 8 mm in the short axis with SUV max 4.1, right hilar node measures 10 mm in the short axis on axial image 127 with SUV max 3.5, previously 13 mm with SUV max 4.5, and left hilar node measures 8 mm in the short axis on axial image 130 and shows SUV max 3.5, stable size with previous SUV max 6.7. Skeleton: No abnormal uptake in the visualized axial and appendicular skeleton. Degenerative change along the spine and sacroiliac joints. Three screw fixation of the right femoral neck. Soft tissues: No abnormal uptake in the visualized head, neck, chest, abdomen, pelvis, and extremities. Right posterior shoulder intramuscular lipoma. METRICS: Mediastinal blood pool: SUV mean 2.2 Liver uptake: SUV mean 3.3 PET/PET skull to thigh SUBS [id number] IMPRESSION: 1. Mixed treatment response. 2. Stable CT appearance of distal esophageal thickening with decreased FDG uptake. 3. Resolved FDG avid right lower lobe mass with residual non FDG avid bandlike opacity likely representing scar. 4. Multiple right pleural nodules, couple developed with others showing increased size but decreased FDG uptake. 5. Decreased FDG avid mediastinal and bilateral hilar lymphadenopathy. 6. Additional chronic and incidental findings as above.
[2024-11-10 09:00] LABS: Hematocrit 31.3 % (37-53); Hemoglobin 10.00 g/dL (11.27-16.99); Mean Corpuscular HGB Conc 31.9 g/dL (30-55); Mean Corpuscular Hemoglobin 28.4 pg (27-33); Mean Corpuscular Volume 88.9 fl (82-101); Nucleated Red Blood Cells % 0 %; Platelet Count 190 10^3/cmm (157-399); Red Blood Count 3.52 10^6/uL (3.85-5.65); White Blood Count 3.43 10^3/uL (3.29-11.43)
[2024-11-10 09:25] LABS: Alanine Aminotransferase 20 U/L (0-41); Albumin Level 3.7 g/dL (3.5-5.2); Alkaline Phosphatase 192 U/L (40-130); Anion Gap 14.7 (5-19); Aspartate Amino Transferase 28 U/L (0-40); Blood Urea Nitrogen 23 mg/dL (8-23); Calcium 8.8 mg/dL (8.5-10.5); Carbon Dioxide 23 mmol/L (22-29); Chloride 104 mmol/L (98-107); Creatinine Clr Calc Pharmacy 97.5826; Globulin 3.0 g/dL (1.3-4.6); Glucose 117 mg/dL (65-115); Osmolality Calculated 291 mOsm/kg (285-295); Potassium 3.7 mmol/L (3.5-5.1); Sodium 138 mmol/L (136-145); Total Protein 6.7 g/dL (6.6-8.7)
[2024-11-10] MEDS: aprepitant 130 mg/18 ml SDV IVP (11:09)
[2024-11-10] MEDS: dexamethasone 4 mg/mL INJ 5 mL 12 MG IVP (11:20)
[2024-11-10 11:26] LABS: Magnesium 1.6 mg/dL (1.7-2.3)
[2024-11-10] MEDS: TRASTUZUMAB ANNS IV (12:00)
[2024-11-10] MEDS: SODIUM CHLORIDE 0.9% IV (12:00)
[2024-11-10] MEDS: atropine 1 mg/mL SDV 1 mL 0.4 MG IV (12:41)
[2024-11-10] MEDS: IRINOTECAN IV (12:57)
[2024-11-10] MEDS: DEXTROSE 5% IV (12:57)
[2024-11-10] MEDS: leucovorin 700 MG in dextrose 5% 250 ML 166.67 MG IV (12:57)
[2024-11-10] MEDS: fluorouraciL 4,200 MG, elastomeric pump 1 PUMP in sodium chloride 0.9% (100 ml) 8 ML IV (14:40)
[2024-11-10 14:51] LABS: Glucose Urine UA Negative (Normal); Nitrate Urine Negative (Negative); Specific Gravity, Urine 1.020 (1.005-1.030)
[2024-11-10 15:07] LABS: Add Urine Microscopic? YES; UA Manual Slide Review YES
[2024-11-10 15:08] VITALS: BP 119/73; PULSE 68; RESP 16; TEMP 36.1; O2SAT 98
== END 2024-11-10 23:59 | disposition home or self-care (01) ==
PROVIDERS: Internal Medicine; Nurse Practitioner Family; PCP Nurse Practitioner Family; Visit Provider Internal Medicine Medical Oncology
DX: Z51.11 Encounter for antineoplastic chemotherapy; Z51.12 Encounter for antineoplastic immunotherapy; C15.9 Malignant neoplasm of esophagus, unspecified; C78.7 Secondary malignant neoplasm of liver and intrahepatic bile duct; G08 Intracranial and intraspinal phlebitis and thrombophlebitis; E83.42 Hypomagnesemia; Z79.899 Other long term (current) drug therapy; Z79.52 Long term (current) use of systemic steroids; Z79.631 Long term (current) use of antimetabolite agent; Z92.3 Personal history of irradiation; Z79.01 Long term (current) use of anticoagulants; Z53.9 Procedure and treatment not carried out, unspecified reason
CPT/HCPCS: 78815; 80053; 81001; 83735; 85025; 85378; 85610; 96375; 96413; 96416; 96417; 96523; 99214; A9552; J0185; J0461; J0640; J1100; J2469; J3490; J7050; J7060; J9190; J9206; J9999; Q5117

== ENCOUNTER 2024-12-08 09:30 | Oncology outpatient (recurring) (ONCR) | payer MEDICARE, SELFPAY ==
[2024-11-24 09:00] LABS: Hematocrit 31.5 % (37-53); Hemoglobin 10.20 g/dL (11.27-16.99); Mean Corpuscular HGB Conc 32.4 g/dL (30-55); Mean Corpuscular Hemoglobin 29.2 pg (27-33); Mean Corpuscular Volume 90.3 fl (82-101); Nucleated Red Blood Cells % 0 %; Platelet Count 196 10^3/cmm (157-399); Red Blood Count 3.49 10^6/uL (3.85-5.65); White Blood Count 3.31 10^3/uL (3.29-11.43)
[2024-11-24 09:12] LABS: Alanine Aminotransferase 20 U/L (0-41); Albumin Level 3.9 g/dL (3.5-5.2); Alkaline Phosphatase 216 U/L (40-130); Anion Gap 15.9 (5-19); Aspartate Amino Transferase 27 U/L (0-40); Blood Urea Nitrogen 17 mg/dL (8-23); Calcium 9.0 mg/dL (8.5-10.5); Carbon Dioxide 24 mmol/L (22-29); Chloride 102 mmol/L (98-107); Creatinine Clr Calc Pharmacy 97.5826; Globulin 2.9 g/dL (1.3-4.6); Glucose 120 mg/dL (65-115); Magnesium 1.8 mg/dL (1.7-2.3); Osmolality Calculated 289 mOsm/kg (285-295); Potassium 3.9 mmol/L (3.5-5.1); Sodium 138 mmol/L (136-145); Total Protein 6.8 g/dL (6.6-8.7)
[2024-11-24] MEDS: dexamethasone 4 mg/mL INJ 5 mL 12 MG IVP (10:22)
[2024-11-24] MEDS: SODIUM CHLORIDE 0.9% IV (10:51)
[2024-11-24] MEDS: TRASTUZUMAB ANNS IV (10:51)
[2024-11-24] MEDS: atropine 1 mg/mL SDV 1 mL 0.4 MG IV (11:54)
[2024-11-24] MEDS: leucovorin 700 MG in dextrose 5% 250 ML 213.33 MG IV (12:20)
[2024-11-24] MEDS: IRINOTECAN IV (12:21)
[2024-11-24] MEDS: DEXTROSE 5% IV (12:21)
[2024-11-24 14:02] LABS: Glucose Urine UA Negative (Normal); Nitrate Urine Negative (Negative); Specific Gravity, Urine 1.019 (1.005-1.030)
[2024-11-24] MEDS: fluorouraciL 4,200 MG, elastomeric pump 1 PUMP in sodium chloride 0.9% (100 ml) 8 ML IV (14:05)
[2024-11-24 14:08] VITALS: BP 118/70; PULSE 89; TEMP 35.8; O2SAT 97
[2024-11-24 14:41] LABS: Add Urine Microscopic? YES; UA Manual Slide Review YES
[2024-12-08 09:30] LABS: Hematocrit 31.2 % (37-53); Hemoglobin 10.00 g/dL (11.27-16.99); Mean Corpuscular HGB Conc 32.1 g/dL (30-55); Mean Corpuscular Hemoglobin 28.9 pg (27-33); Mean Corpuscular Volume 90.2 fl (82-101); Nucleated Red Blood Cells % 0 %; Platelet Count 188 10^3/cmm (157-399); Red Blood Count 3.46 10^6/uL (3.85-5.65); White Blood Count 3.74 10^3/uL (3.29-11.43)
[2024-12-08 09:56] LABS: Alanine Aminotransferase 12 U/L (0-41); Albumin Level 3.8 g/dL (3.5-5.2); Alkaline Phosphatase 157 U/L (40-130); Anion Gap 13.8 (5-19); Aspartate Amino Transferase 19 U/L (0-40); Blood Urea Nitrogen 15 mg/dL (8-23); Calcium 8.5 mg/dL (8.5-10.5); Carbon Dioxide 23 mmol/L (22-29); Chloride 106 mmol/L (98-107); Creatinine Clr Calc Pharmacy 97.8060; Globulin 2.7 g/dL (1.3-4.6); Glucose 103 mg/dL (65-115); Osmolality Calculated 289 mOsm/kg (285-295); Potassium 3.8 mmol/L (3.5-5.1); Sodium 139 mmol/L (136-145); Total Protein 6.5 g/dL (6.6-8.7)
[2024-12-08] MEDS: dexamethasone 4 mg/mL INJ 5 mL 12 MG IVP (10:49)
[2024-12-08] MEDS: TRASTUZUMAB ANNS IV (11:39)
[2024-12-08] MEDS: SODIUM CHLORIDE 0.9% IV (11:39)
[2024-12-08] MEDS: atropine 1 mg/mL SDV 1 mL 0.4 MG IV (12:24)
[2024-12-08] MEDS: irinotecan 320 MG in dextrose 5% 250 ML 177.33 MG IV (12:31)
[2024-12-08] MEDS: leucovorin 700 MG in dextrose 5% 250 ML 213.33 MG IV (12:32)
[2024-12-08] MEDS: fluorouraciL 4,200 MG, elastomeric pump 1 PUMP in sodium chloride 0.9% (100 ml) 8 ML IV (14:27)
[2024-12-08 14:47] LABS: Glucose Urine UA Negative (Normal); Nitrate Urine Negative (Negative); Specific Gravity, Urine 1.012 (1.005-1.030)
[2024-12-08 14:50] VITALS: BP 110/68; PULSE 61; RESP 17; TEMP 35.9; O2SAT 98
[2024-12-08 14:53] LABS: Add Urine Microscopic? YES
[2024-12-08 15:06] LABS: Magnesium 1.6 mg/dL (1.7-2.3)
== END 2024-12-08 23:59 | disposition home or self-care (01) ==
PROVIDERS: Nurse Practitioner Family; PCP Nurse Practitioner Family; Visit Provider Internal Medicine Medical Oncology
DX: Z51.11 Encounter for antineoplastic chemotherapy; Z51.12 Encounter for antineoplastic immunotherapy; C15.9 Malignant neoplasm of esophagus, unspecified; C78.02 Secondary malignant neoplasm of left lung; D64.9 Anemia, unspecified; D70.9 Neutropenia, unspecified; G08 Intracranial and intraspinal phlebitis and thrombophlebitis; E83.42 Hypomagnesemia; R13.10 Dysphagia, unspecified; Z79.52 Long term (current) use of systemic steroids; Z79.631 Long term (current) use of antimetabolite agent; Z79.899 Other long term (current) drug therapy; Z92.3 Personal history of irradiation; Z79.01 Long term (current) use of anticoagulants; Z53.9 Procedure and treatment not carried out, unspecified reason
CPT/HCPCS: 80053; 81001; 83735; 85025; 96366; 96367; 96368; 96375; 96413; 96415; 96416; 96417; 96523; 99214; J0461; J0640; J1100; J2469; J3490; J7050; J7060; J9190; J9206; J9999; Q5117

== ENCOUNTER 2024-12-10 14:04 | Oncology outpatient (recurring) (ONCR) | payer MEDICARE, SELFPAY | END 2024-12-12 23:59 | disposition home or self-care (01) | LOC: ONCMED 14:05 | PROVIDERS: PCP Nurse Practitioner Family; Visit Provider Internal Medicine Medical Oncology | DX: Z45.1 Encounter for adjustment and management of infusion pump (principal); Z95.828 Presence of other vascular implants and grafts | CPT/HCPCS: 96523 ==

== ENCOUNTER 2025-01-05 08:00 | Oncology outpatient (recurring) (ONCR) | payer MEDICARE, SELFPAY ==
[2024-12-22 09:39] LABS: Hematocrit 31.2 % (37-53); Hemoglobin 10.00 g/dL (11.27-16.99); Mean Corpuscular HGB Conc 32.1 g/dL (30-55); Mean Corpuscular Hemoglobin 29.3 pg (27-33); Mean Corpuscular Volume 91.5 fl (82-101); Nucleated Red Blood Cells % 0 %; Platelet Count 197 10^3/cmm (157-399); Red Blood Count 3.41 10^6/uL (3.85-5.65); White Blood Count 5.61 10^3/uL (3.29-11.43)
[2024-12-22 09:52] LABS: Alanine Aminotransferase 10 U/L (0-41); Albumin Level 3.8 g/dL (3.5-5.2); Alkaline Phosphatase 146 U/L (40-130); Anion Gap 14.0 (5-19); Aspartate Amino Transferase 22 U/L (0-40); Blood Urea Nitrogen 19 mg/dL (8-23); Calcium 9.1 mg/dL (8.5-10.5); Carbon Dioxide 23 mmol/L (22-29); Chloride 102 mmol/L (98-107); Globulin 2.8 g/dL (1.3-4.6); Glucose 89 mg/dL (65-115); Magnesium 1.6 mg/dL (1.7-2.3); Osmolality Calculated 282 mOsm/kg (285-295); Potassium 4.0 mmol/L (3.5-5.1); Sodium 135 mmol/L (136-145); Total Protein 6.6 g/dL (6.6-8.7)
[2024-12-22] MEDS: dexamethasone 4 mg/mL INJ 5 mL 12 MG IVP (10:52)
[2024-12-22 10:58] VITALS: BP 116/78; PULSE 72; RESP 17; TEMP 36.4; O2SAT 99
[2024-12-22] MEDS: atropine 1 mg/mL SDV 1 mL 0.4 MG IV (12:14)
[2024-12-22] MEDS: irinotecan 320 MG in dextrose 5% 250 ML 177.33 MG IV (12:20)
[2024-12-22] MEDS: leucovorin 700 MG in dextrose 5% 250 ML 213.33 MG IV (12:22)
[2024-12-22 12:38] LABS: Glucose Urine UA Negative (Normal); Nitrate Urine Negative (Negative); Specific Gravity, Urine 1.019 (1.005-1.030)
[2024-12-22 12:41] LABS: Add Urine Microscopic? YES
[2024-12-22] MEDS: fluorouraciL 4,200 MG, elastomeric pump 1 PUMP in sodium chloride 0.9% (100 ml) 8 ML IV (14:08)
[2024-12-22 14:23] VITALS: BP 134/85; PULSE 58; RESP 17; TEMP 36.8; O2SAT 99
[2025-01-05 08:11] LABS: Hematocrit 29.3 % (37-53); Hemoglobin 9.50 g/dL (11.27-16.99); Mean Corpuscular HGB Conc 32.4 g/dL (30-55); Mean Corpuscular Hemoglobin 29.2 pg (27-33); Mean Corpuscular Volume 90.2 fl (82-101); Nucleated Red Blood Cells % 0 %; Platelet Count 197 10^3/cmm (157-399); Red Blood Count 3.25 10^6/uL (3.85-5.65); White Blood Count 4.02 10^3/uL (3.29-11.43)
[2025-01-05 08:41] LABS: Alanine Aminotransferase 15 U/L (0-41); Albumin Level 3.6 g/dL (3.5-5.2); Alkaline Phosphatase 155 U/L (40-130); Anion Gap 12.7 (5-19); Aspartate Amino Transferase 21 U/L (0-40); Blood Urea Nitrogen 17 mg/dL (8-23); Calcium 9.0 mg/dL (8.5-10.5); Carbon Dioxide 23 mmol/L (22-29); Chloride 104 mmol/L (98-107); Creatinine Clr Calc Pharmacy 97.5826; Globulin 2.8 g/dL (1.3-4.6); Glucose 98 mg/dL (65-115); Magnesium 1.7 mg/dL (1.7-2.3); Osmolality Calculated 284 mOsm/kg (285-295); Potassium 3.7 mmol/L (3.5-5.1); Sodium 136 mmol/L (136-145); Total Protein 6.4 g/dL (6.6-8.7)
[2025-01-05 08:55] VITALS: BP 110/75; PULSE 105; RESP 16; TEMP 36.7; O2SAT 96
[2025-01-05] MEDS: dexamethasone 4 mg/mL INJ 5 mL 12 MG IVP (09:15)
[2025-01-05] MEDS: SODIUM CHLORIDE 0.9% IV (09:51)
[2025-01-05] MEDS: TRASTUZUMAB ANNS IV (09:51)
[2025-01-05] MEDS: atropine 1 mg/mL SDV 1 mL 0.4 MG IV (10:31)
[2025-01-05] MEDS: IRINOTECAN IV (10:36)
[2025-01-05] MEDS: DEXTROSE 5% IV (10:36)
[2025-01-05] MEDS: leucovorin 700 MG in dextrose 5% 250 ML 166.67 MG IV (10:36)
[2025-01-05 11:46] LABS: Glucose Urine UA Negative (Normal); Nitrate Urine Negative (Negative); Specific Gravity, Urine 1.011 (1.005-1.030)
[2025-01-05 11:48] LABS: Add Urine Microscopic? YES
[2025-01-05] MEDS: fluorouraciL 4,200 MG, elastomeric pump 1 PUMP in sodium chloride 0.9% (100 ml) 8 ML IV (12:23)
[2025-01-05 12:28] VITALS: BP 105/69; PULSE 94; RESP 16; TEMP 37; O2SAT 97
== END 2025-01-05 23:59 | disposition home or self-care (01) ==
PROVIDERS: Nurse Practitioner Family; PCP Nurse Practitioner Family; Visit Provider Internal Medicine Medical Oncology
DX: Z53.9 Procedure and treatment not carried out, unspecified reason; Z51.12 Encounter for antineoplastic immunotherapy; C15.5 Malignant neoplasm of lower third of esophagus; R03.0 Elevated blood-pressure reading, without diagnosis of hypertension; Z79.899 Other long term (current) drug therapy; Z79.52 Long term (current) use of systemic steroids; Z92.3 Personal history of irradiation; Z79.631 Long term (current) use of antimetabolite agent; Z79.01 Long term (current) use of anticoagulants
CPT/HCPCS: 80053; 81001; 83735; 85025; 96375; 96413; 96416; 96417; 96523; 99214; J0461; J0640; J1100; J2469; J3490; J7050; J7060; J9190; J9206; J9999; Q5117

== ENCOUNTER 2025-01-07 12:30 | Oncology outpatient (recurring) (ONCR) | payer MEDICARE, SELFPAY ==
--- NOTE | 2025-01-06 12:44 | USCV_ITS ---
Hi Gil Age: 69 Gender: M : 1955 Exam Date: 01/06/2025 12:58 Ordering Phys: Cele Jimenez MD Technologist: JOSE Exam Location: [facility] Indication: High Risk Meds BP: 103 / 71 HR: Rhythm: Sinus Technical Quality: Adequate MEASUREMENTS (Male / Female) Normal Values 2D ECHO LV Diastolic Diameter PLAX 6.0 cm 4.2 - 5.9 / 3.9 - 5.3 cm IVS Diastolic Thickness 0.9 cm 0.6 - 1.0 / 0.6 - 0.9 cm IVS Systolic Thickness 0.9 cm LVPW Diastolic Thickness 1.0 cm 0.6 - 1.0 / 0.6 - 0.9 cm LVPW Systolic Thickness 1.0 cm LVOT Diameter 2.0 cm LV Ejection Fraction 2D Teich 35.9 % LV Ejection Fraction MOD 4C 64.5 % LV Ejection Fraction MOD 2C 50.1 % LV Ejection Fraction 2C AL 50.2 % LA Diameter 3.4 cm RA Systolic Volume 4C AL 18.4 ml RA Systolic Volume 4C MOD 17.7 ml LA Sys Volume AL 44.4 cm cubed LA Sys Volume Index AL 21.4 cm cubed/m squared Aorta at Sinotubular Diameter 3.2 cm M-MODE LA Ao Ratio MM 1.3 AV Cusp Separation MM 1.2 cm FINDINGS Left Ventricle Normal left ventricular size, systolic function and wall thickness, with no regional wall motion abnormalities. Left ventricular ejection fraction is estimated at 60%. Right Ventricle Normal right ventricular size and systolic function. Right Atrium Normal right atrial size. Left Atrium Normal left atrial size. IA Septum Mitral Valve Aortic Valve Tricuspid Valve Pulmonic Valve Pericardium No pericardial effusion. Aorta Normal size aortic root and proximal ascending aorta. IVC CONCLUSIONS Limited echo to assess LV systolic function. Normal left ventricle size, systolic function. Normal wall motion and thickening with no regional wall motion abnormalities.. Estimated LVEF is normal 60%. Normal RV size and RV systolic function. Ezekiel Simpson MD (Electronically Signed) Final Date: 06 January 2025 14:31 S
== END 2025-01-11 23:59 | disposition home or self-care (01) ==
PROVIDERS: PCP Nurse Practitioner Family; Visit Provider Internal Medicine Medical Oncology
DX: Z45.1 Encounter for adjustment and management of infusion pump; Z95.828 Presence of other vascular implants and grafts; Z53.9 Procedure and treatment not carried out, unspecified reason
CPT/HCPCS: 93308; 96523

== ENCOUNTER 2025-02-04 11:45 | Oncology outpatient (recurring) (ONCR) | payer MEDICARE, SELFPAY ==
[2025-01-19 08:19] LABS: Hematocrit 29.9 % (37-53); Hemoglobin 9.50 g/dL (11.27-16.99); Mean Corpuscular HGB Conc 31.8 g/dL (30-55); Mean Corpuscular Hemoglobin 29.1 pg (27-33); Mean Corpuscular Volume 91.4 fl (82-101); Nucleated Red Blood Cells % 0 %; Platelet Count 201 10^3/cmm (157-399); Red Blood Count 3.27 10^6/uL (3.85-5.65); White Blood Count 3.24 10^3/uL (3.29-11.43)
[2025-01-19 08:56] LABS: Alanine Aminotransferase 15 U/L (0-41); Albumin Level 3.7 g/dL (3.5-5.2); Alkaline Phosphatase 173 U/L (40-130); Anion Gap 15.8 (5-19); Aspartate Amino Transferase 17 U/L (0-40); Blood Urea Nitrogen 18 mg/dL (8-23); Calcium 9.2 mg/dL (8.5-10.5); Carbon Dioxide 22 mmol/L (22-29); Chloride 107 mmol/L (98-107); Ferritin 104 ng/mL (30-400); Globulin 2.7 g/dL (1.3-4.6); Glucose 101 mg/dL (65-115); Iron 77 ug/dL (59-158); Magnesium 1.8 mg/dL (1.7-2.3); Osmolality Calculated 294 mOsm/kg (285-295); Potassium 3.8 mmol/L (3.5-5.1); Sodium 141 mmol/L (136-145); Thyroid Stimulating Hormone 2.13 uIU/mL (0.27-4.20); Total Iron Binding Capacity 330 mcg/dl; Total Protein 6.4 g/dL (6.6-8.7); Unsaturated Iron Binding 253 ug/dL (112-347); Vitamin B12 473 pg/mL (232-1245)
--- NOTE | 2025-01-19 11:00 | CT_ITS ---
WS: [id number] CT CHEST ANGIOGRAPHY WITH REFORMATS HISTORY: SOB TECHNIQUE: Contiguous axial images are obtained through the chest during arterial injection of intravenous contrast. Images are reconstructed to evaluate the pulmonary arteries. MIP imaging also reviewed. All CT scans at [facility] use at least one of these dose optimization techniques: automated exposure control; mA and/or kV adjustment per patient size (includes targeted exams where dose is matched to clinical indication); or iterative reconstruction. CONTRAST: Omnipaque 350; 100 mL IV. DLP: 351.45 mGy.cm COMPARISON: Chest 01/31/2010 Good opacification of the pulmonary arteries. No central large pulmonary emboli. Beginning in the lobar and segmental branches is bilateral upper and lower lobe pulmonary emboli. Numerous emboli are identified. Some of these emboli are occlusive. Moderate embolic burden. No RIGHT heart strain is identified. Heart is slightly enlarged. No pericardial or pleural effusions. Significant change in appearance of the lungs. There are subsolid opacifications and interstitial thickening and new more dense opacifications. Irregular consolidations in the RIGHT upper lobe with the largest measuring 1.3 x 1.8 cm. Smaller consolidation along the superior fissure. At additional irregular opacifications in the posterior RIGHT lower lobe with the largest component measuring 2.5 x 1.0 cm. Mildly prominent lymphoid tissue at the hilar regions with the largest lymph node 10 mm on the RIGHT. There is distal esophageal wall thickening measuring up to 14 mm. No adrenal mass. Prior cholecystectomy. Left-sided Mediport. RIGHT infraspinatus muscle lipoma. CT/CT angio chest PE protcl [id number] IMPRESSION: 1. Moderate pulmonary embolic burden beginning in the lobar and segmental bran ches of the upper and lower lobe arteries. 2. No RIGHT heart strain. 3. New areas of interstitial opacifications and consolidations as described ab ove. This may be all postinflammatory changes. Metastatic disease superimposed on the interstitial disease needs to be considered. Recommend 3-month follow-up chest CT with contrast after treatment. 4. Distal esophageal wall thickening is similar to 11/07/2024 PET/CT. Notified Elzbieta Mcknight APRN at 01/19/2025 12:39 PM.
[2025-01-19] MEDS: iohexol 350 mg/mL 500 mL Btl (per mL) IV (11:22)
[2025-02-02 09:36] LABS: Hematocrit 31.7 % (37-53); Hemoglobin 9.90 g/dL (11.27-16.99); Mean Corpuscular HGB Conc 31.2 g/dL (30-55); Mean Corpuscular Hemoglobin 29.2 pg (27-33); Mean Corpuscular Volume 93.5 fl (82-101); Nucleated Red Blood Cells % 0 %; Platelet Count 298 10^3/cmm (157-399); Red Blood Count 3.39 10^6/uL (3.85-5.65); White Blood Count 5.92 10^3/uL (3.29-11.43)
[2025-02-02 10:08] LABS: Alanine Aminotransferase 16 U/L (0-41); Albumin Level 3.6 g/dL (3.5-5.2); Alkaline Phosphatase 248 U/L (40-130); Aspartate Amino Transferase 26 U/L (0-40); Blood Urea Nitrogen 17 mg/dL (8-23); Calcium 9.2 mg/dL (8.5-10.5); Carbon Dioxide 27 mmol/L (22-29); Chloride 104 mmol/L (98-107); Creatinine Clr Calc Pharmacy 97.9598; Globulin 2.9 g/dL (1.3-4.6); Glucose 98 mg/dL (65-115); Osmolality Calculated 288 mOsm/kg (285-295); Sodium 138 mmol/L (136-145); Thyroid Stimulating Hormone 1.26 uIU/mL (0.27-4.20); Total Protein 6.5 g/dL (6.6-8.7)
[2025-02-02 10:19] LABS: Anion Gap 11.2 (5-19); Potassium 4.2 mmol/L (3.5-5.1)
[2025-02-02 10:36] LABS: Magnesium 1.8 mg/dL (1.7-2.3)
[2025-02-02] MEDS: dexamethasone 4 mg/mL INJ 5 mL 12 MG IVP (10:40)
[2025-02-02] MEDS: SODIUM CHLORIDE 0.9% IV (12:07)
[2025-02-02] MEDS: TRASTUZUMAB ANNS IV (12:07)
[2025-02-02] MEDS: atropine 1 mg/mL SDV 1 mL 0.4 MG IV (12:57)
[2025-02-02] MEDS: irinotecan 320 MG in dextrose 5% 250 ML 177.33 MG IV (13:04)
[2025-02-02] MEDS: leucovorin 700 MG in dextrose 5% 250 ML 166.67 MG IV (13:05)
[2025-02-02] MEDS: fluorouraciL 4,200 MG, elastomeric pump 1 PUMP in sodium chloride 0.9% (100 ml) 8 ML IV (15:02)
== END 2025-02-11 23:59 | disposition home or self-care (01) ==
PROVIDERS: Nurse Practitioner Family; PCP Nurse Practitioner Family; Visit Provider Internal Medicine Medical Oncology
DX: Z45.1 Encounter for adjustment and management of infusion pump; Z95.828 Presence of other vascular implants and grafts; Z53.9 Procedure and treatment not carried out, unspecified reason
CPT/HCPCS: 71275; 80053; 82607; 82728; 82746; 83540; 83550; 83735; 84443; 85025; 96375; 96413; 96415; 96416; 96523; 99214; 99215; J0461; J0640; J1100; J2469; J3490; J7050; J7060; J9190; J9206; J9999; Q5117